=== PATIENT | male | born 1945 | race Caucasian/White ===

== ENCOUNTER 2020-09-14 08:23 | Inpatient (IN) | payer MEDICARE ==
[~2020-09-14] VITALS: Ht 170.2 cm; Wt 89.5 kg
[2020-09-14] VITALS (14 sets, daily range): BP systolic 78–110; BP diastolic 50–69
[2020-09-14] MEDS ORDERED: LISI-542 PO (08:57)
[2020-09-14] MEDS ORDERED: SOTA120T PO (08:57)
[2020-09-14] MEDS ORDERED: SIMV40TA20 PO (08:57)
[2020-09-14] MEDS ORDERED: TRUL10IN SC (08:57)
[2020-09-14] MEDS ORDERED: IPRA6SP NARES (08:57)
[2020-09-14] MEDS ORDERED: BASA100I SC (08:57)
[2020-09-14] MEDS ORDERED: XALA0.007 OP (08:57)
[2020-09-14] MEDS ORDERED: FURO40TA2 PO (08:57)
[2020-09-14] MEDS ORDERED: METF10004 PO (08:57)
[2020-09-14] MEDS ORDERED: ELIQ5TAB PO (08:57)
[2020-09-14] MEDS ORDERED: XALA0.007 OU (08:57)
[2020-09-14] MEDS ORDERED: MIDAZOLAM INJ 2MG/2ML VIAL (J2250 PER 1MG) IV STA ×2 (08:59→11:41)
[2020-09-14] MEDS ORDERED: MIDAZOLAM INJ 2MG/2ML VIAL (J2250 PER 1MG) IV ONE (09:00)
[2020-09-14] MEDS ORDERED: MIDAZOLAM INJ 2MG/2ML VIAL (J2250 PER 1MG) As Ordered ONE (09:01)
[2020-09-14 09:05] LABS: BASO # 0.1 10^3/uL (0.0-0.2); BASO % 0.9 % (0.0-1.0); EOS # 0.3 10^3/uL (0.0-0.5); EOS % 2.5 % (0.0-3.0); HEMATOCRIT 51.8 % (42.0-52.0); HEMOGLOBIN 14.6 g/dl (13.5-17.5); LYMPH # 1.5 10^3/uL (1.5-5.0); LYMPH % 14.5 % (24.0-44.0); MEAN CORPUSCULAR HEMOGLOBIN 28.3 pg (27.0-33.0); MEAN CORPUSCULAR HGB CONC 28.2 g/dl (32.0-36.5); MEAN CORPUSCULAR VOLUME 100.4 fl (80.0-96.0); MONO # 0.9 10^3/uL (0.0-0.8); MONO % 8.5 % (0.0-5.0); NEUTROPHILS # 7.4 10^3/uL (1.5-8.5); NEUTROPHILS % 72.4 % (36.0-66.0); PLATELET COUNT, AUTOMATED 251 10^3/uL (150-450); RED BLOOD COUNT 5.16 10^6/uL (4.30-6.10); WHITE BLOOD COUNT 10.2 10^3/uL (4.0-10.0)
--- NOTE | 2020-09-14 09:09 | REP ---
INDICATION: intubated. COMPARISON: No comparison chest x-ray. TECHNIQUE: Portable upright AP chest radiograph. FINDINGS: Endotracheal tube is seen in good position between the transverse aorta and the medial clavicles. And NG tube enters the left upper quadrant. A bipolar pacemaker is seen in the right heart view of the left side. Monitoring electrodes are noted. The heart is not enlarged. Interstitial and vascular markings are diffusely increased and congested question interstitial edema. No focal infiltrate is seen. No pleural effusion is noted. There is no evidence of pneumothorax or mediastinal widening. No rib or other fracture is appreciated.. IMPRESSION: Endotracheal and nasogastric tubes in good position. Diffuse interstitial edema pattern/vascular congestion. Heart size is normal. Pacemaker.. <Electronically signed by Miguel Lopez > 09/14/20 0947
[2020-09-14 09:24] LABS: AMPHETAMINES LEVEL URINE NEGATIVE (NEGATIVE); BARBITURATES URINE NEGATIVE (NEGATIVE); BENZODIAZEPINES URINE NEGATIVE (NEGATIVE); CANNABINOIDS URINE POSITIVE (NEGATIVE); COCAINE METABOLITE URINE NEGATIVE (NEGATIVE); METHADONE URINE NEGATIVE (NEGATIVE); OPIATES URINE NEGATIVE (NEGATIVE); PHENCYCLIDINE URINE NEGATIVE (NEGATIVE)
[2020-09-14 09:28] LABS: INR 1.06
[2020-09-14 09:30] LABS: ACETAMINOPHEN LEVEL < 2.0 UG/ML (10.0-30.0); ALBUMIN 3.3 GM/DL (3.2-5.2); ALT/SGPT 17 U/L (12-78); BILIRUBIN,DIRECT < 0.1 MG/DL (0.0-0.2); BILIRUBIN,TOTAL 0.2 MG/DL (0.2-1.0); BLOOD UREA NITROGEN 69 MG/DL (7-18); CARBON DIOXIDE LEVEL 40 MEQ/L (21-32); CHLORIDE LEVEL 96 MEQ/L (98-107); CK-MB VALUE MASS 1.8 NG/ML (<3.6); CPK CREATINE PHOSPHOKINASE 40 U/L (39-308); CREATININE FOR GFR 1.55 MG/DL (0.70-1.30); ETHYL ALCOHOL (ETHANOL) 0.006 % (0.000-0.010); GLUCOSE, FASTING 138 MG/DL (70-100); NT-PRO BNP 2108 PG/ML (<125); POTASSIUM SERUM 5.7 MEQ/L (3.5-5.1); SALICYLATE LEVEL < 1.7 MG/DL (5.0-30.0); SODIUM LEVEL 138 MEQ/L (136-145); TOTAL PROTEIN 8.1 GM/DL (6.4-8.2); TROPONIN I < 0.02 NG/ML (< 0.10)
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
[2020-09-14] MEDS ORDERED: CEFEPIME HCL 2 GM in D5W MINI-BAG PLUS 50 ML IV ONE (09:45)
[2020-09-14] MEDS ORDERED: SUCCINYLCHOLINE INJ 200 MG/10 ML VIAL (J0330) IV ONE (09:45)
[2020-09-14] MEDS ORDERED: NS 2,530 ML in IV 1 EA IV ONE (09:45)
[2020-09-14] MEDS ORDERED: ETOMIDATE INJ 20MG/10ML VIAL IV ONE (09:45)
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
[2020-09-14] MEDS ORDERED: METF-838 PO (09:58)
[2020-09-14] MEDS ORDERED: ALBU83IN INH (09:58)
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
[2020-09-14] MEDS ORDERED: FURO20TA2 PO (10:03)
[2020-09-14] MEDS ORDERED: PATIENT COMMENT (10:03)
[2020-09-14] MEDS: NS 1,000 ML IV SCH ×2 (10:12→20:00)
[2020-09-14 10:16] LABS: RSV AMPLIFICATION NEGATIVE (NEGATIVE)
[2020-09-14] MEDS ORDERED: propofoL 1,000 MG in IV 1 EA IV SCH (10:36)
[2020-09-14] MEDS ORDERED: MIDAZOLAM INJ 2MG/2ML VIAL (J2250 PER 1MG) IV PRN (10:45)
[2020-09-14] MEDS: PANTOPRAZOLE 40MG VIAL (C9113 PER 1) IV SCH (11:12)
[2020-09-14 11:30] LABS: ABG BASE EXCESS 1.3 (-2.0-2.0); ABG HCO3 30.9 MEQ/L (22.0-26.0); ABG O2 SATURATION 91.1 % (95.0-99.0); ABG PARTIAL PRESSURE O2 61.7 mmHg (75.0-100.0); ABG STANDARD HCO3 25.4 MEQ/L (22.0-26.0); ABG TOTAL CO2 33.2 MEQ/L (23.0-31.0)
[2020-09-14 11:32] LABS: ABG PARTIAL PRESSURE CO2 74.7 mmHg (35.0-45.0); ABG pH (ARTERIAL) 7.234 UNITS (7.350-7.450)
[2020-09-14] MEDS ORDERED: MIDAZOLAM HCL 50 MG in D5W 40 ML IV SCH (11:45)
[2020-09-14] MEDS ORDERED: REFRIGERATOR IV KEYS XX PRN (13:00)
[2020-09-14] MEDS ORDERED: MIDAZOLAM HCL 100 MG in D5W 80 ML IV SCH (13:00)
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
[2020-09-14] MEDS: HEPARIN SOD (PORCINE) 5000UNITS/ML 1ML VIAL/SYRINGE SC SCH ×2 (14:00→22:43)
[2020-09-14] MEDS ORDERED: ETOMIDATE INJ 20MG/10ML VIAL ONE (15:20)
[2020-09-14] MEDS ORDERED: SUCCINYLCHOLINE INJ 200 MG/10 ML VIAL (J0330) ONE (15:20)
[2020-09-14] MEDS: IPRATROPIUM 0.5MG/ALBUTEROL 2.5MG INH SOL UD 3ML (DUONEB) NEB SCH ×2 (15:35→19:48)
[2020-09-14 17:12] LABS: ALBUMIN 2.7 GM/DL (3.2-5.2); BLOOD UREA NITROGEN 69 MG/DL (7-18); CALCIUM LEVEL 8.5 MG/DL (8.8-10.2); CARBON DIOXIDE LEVEL 32 MEQ/L (21-32); CHLORIDE LEVEL 106 MEQ/L (98-107); CREATININE FOR GFR 1.28 MG/DL (0.70-1.30); GLOMERULAR FILTRATION RATE 58.6 (>42); GLUCOSE, FASTING 83 MG/DL (70-100); PHOSPHORUS LEVEL 2.4 MG/DL (2.5-4.9); POTASSIUM SERUM 5.9 MEQ/L (3.5-5.1); SODIUM LEVEL 140 MEQ/L (136-145)
[2020-09-14] MEDS ORDERED: METOPROLOL 5 MG/5 ML VIAL IV STA (17:47)
[2020-09-14] MEDS ORDERED: DIGOXIN INJ 0.5 MG/2 ML AMP (J1160) IV STA ×2 (18:05→18:40)
[2020-09-14 18:10] LABS: ABG BASE EXCESS 4.3 (-2.0-2.0); ABG HCO3 32.1 MEQ/L (22.0-26.0); ABG O2 SATURATION 94.3 % (95.0-99.0); ABG PARTIAL PRESSURE O2 68.3 mmHg (75.0-100.0); ABG STANDARD HCO3 28.2 MEQ/L (22.0-26.0); ABG TOTAL CO2 34.1 MEQ/L (23.0-31.0); ABG pH (ARTERIAL) 7.327 UNITS (7.350-7.450)
[2020-09-14 18:12] LABS: ABG PARTIAL PRESSURE CO2 62.8 mmHg (35.0-45.0)
[2020-09-14 18:36] LABS: MAGNESIUM LEVEL 1.5 MG/DL (1.8-2.4)
[2020-09-14] MEDS ORDERED: MAG SULF 1GM/100ML (MAG RUN) 1 GM in IV 1 EA IV ONE ×2 (18:45→19:45)
--- NOTE | 2020-09-14 19:25 | CCN ---
CRITICAL CARE NOTE DATE: 09/14/2020 Critical Care time was one hour this excludes all procedures. I was called to the patient's bedside urgently for AFib with RVR. The patient has a history of being on Sotalol and atrial fibrillation according to the chart. At bedside, I was slowly pushing IV metoprolol and after 4 mg, blood pressure went down to 80 systolic with a mean arterial pressure in the low 60s. Therefore, I stopped after the 4 mg. Heart rate remained 138. EKG did show ST abnormalities in the inferior leads. My differential was acute ND versus strain from AFib with RVR. I therein loaded the patient with digoxin a total of 0.25. Stat echocardiogram was also ordered, initially showing not much wall motion globally; however, after heart rate got down to 120s, there was a much better squeeze, much better cardiac output, and blood pressure improved. I did order a cardiology consult for assistance with management of medication, especially given his Sotalol use. He does have a pacer. The pacer was initially firing when he presented and his heart rate obviously was lower. It appears to be functioning well. I added a troponin on to his most recent labs as his presentation was quite questionable. He presented with hypercarbic respiratory failure and now has AFib with RVR in the face of chronic AFib. I believe most likely his recent cardiovascular instability was most likely secondary to his high heart rate. Appreciate cardiology's input. Will await formal read of the echocardiogram by the stress test technician. In the meantime, will add insulin coverage. The patient remains arousable on mechanical ventilation and can answer questions, neurologically intact. RITA
[2020-09-14 19:46] LABS: TROPONIN I < 0.02 NG/ML (< 0.10)
[2020-09-14] MEDS: CHLORHEXIDINE GLUCONATE 0.12 % 15ML UDC (PERIDEX ORAL RINSE) MT SCH (21:02)
[2020-09-14] MEDS ORDERED: GLUCOSE 4GM CHEW TABLET PO PRN (22:45)
[2020-09-14] MEDS ORDERED: GLUCAGON INJ 1MG VIAL SC PRN (22:45)
[2020-09-15] VITALS (18 sets, daily range): BP systolic 81–136; BP diastolic 48–64
[2020-09-15] MEDS ORDERED: DIGOXIN INJ 0.5 MG/2 ML AMP (J1160) IV ONE ×3 (00:30→12:00)
[2020-09-15] MEDS ORDERED: MIDAZOLAM INJ 2MG/2ML VIAL (J2250 PER 1MG) As Ordered ONE (00:41)
[2020-09-15] MEDS ORDERED: MORPHINE 2 MG/ML 1ML VIAL (J2270) As Ordered ONE (00:45)
[2020-09-15] MEDS: MIDAZOLAM INJ 2MG/2ML VIAL (J2250 PER 1MG) IV PRN ×2 (00:47→03:07)
[2020-09-15] MEDS: MORPHINE 2 MG/ML 1ML VIAL (J2270) IV PRN ×2 (00:49→03:07)
[2020-09-15] MEDS: DEXTROSE 50% 50 ML SYRINGE IV PRN ×3 (03:14→12:10)
[2020-09-15] MEDS: NS 1,000 ML IV SCH (04:00)
[2020-09-15] MEDS: HumaLOG INSULIN (NovoLOG) PER UNIT SC SCH ×3 (06:00→12:00)
[2020-09-15 06:16] LABS: BASO % 0.4 % (0.0-1.0); EOS % 0.3 % (0.0-3.0); LYMPH # 1.2 10^3/uL (1.5-5.0); LYMPH % 16.6 % (24.0-44.0); MEAN CORPUSCULAR HEMOGLOBIN 28.6 pg (27.0-33.0); MEAN CORPUSCULAR HGB CONC 29.7 g/dl (32.0-36.5); MEAN CORPUSCULAR VOLUME 96.1 fl (80.0-96.0); MONO # 0.7 10^3/uL (0.0-0.8); MONO % 9.2 % (0.0-5.0); NEUTROPHILS # 5.4 10^3/uL (1.5-8.5); NEUTROPHILS % 72.7 % (36.0-66.0); PLATELET COUNT, AUTOMATED 175 10^3/uL (150-450); RED BLOOD COUNT 4.06 10^6/uL (4.30-6.10); WHITE BLOOD COUNT 7.4 10^3/uL (4.0-10.0)
[2020-09-15 06:17] LABS: HEMOGLOBIN 11.6 g/dl (13.5-17.5)
[2020-09-15] MEDS: HEPARIN SOD (PORCINE) 5000UNITS/ML 1ML VIAL/SYRINGE SC SCH ×3 (06:20→22:00)
[2020-09-15 06:25] LABS: ALBUMIN 2.3 GM/DL (3.2-5.2); BILIRUBIN,TOTAL 0.3 MG/DL (0.2-1.0); CALCIUM LEVEL 7.6 MG/DL (8.8-10.2); CREATININE FOR GFR 1.33 MG/DL (0.70-1.30); GLOMERULAR FILTRATION RATE 56.1 (>42); PHOSPHORUS LEVEL 1.8 MG/DL (2.5-4.9); POTASSIUM SERUM 5.4 MEQ/L (3.5-5.1); TOTAL PROTEIN 5.5 GM/DL (6.4-8.2)
[2020-09-15 06:30] LABS: ABG BASE EXCESS 5.8 (-2.0-2.0); ABG O2 SATURATION 94.7 % (95.0-99.0); ABG PARTIAL PRESSURE O2 69.7 mmHg (75.0-100.0); ABG STANDARD HCO3 29.6 MEQ/L (22.0-26.0); ABG TOTAL CO2 33.7 MEQ/L (23.0-31.0); ABG pH (ARTERIAL) 7.391 UNITS (7.350-7.450)
--- NOTE | 2020-09-15 07:01 | ECGEPIP ---
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
[2020-09-15] MEDS: IPRATROPIUM 0.5MG/ALBUTEROL 2.5MG INH SOL UD 3ML (DUONEB) NEB SCH ×4 (07:55→20:00)
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
[2020-09-15] MEDS: NICOTINE 14 MG/24 HR TRANSDERMAL TD SCH (09:00)
[2020-09-15] MEDS: CHLORHEXIDINE GLUCONATE 0.12 % 15ML UDC (PERIDEX ORAL RINSE) MT SCH (09:49)
[2020-09-15] MEDS: PANTOPRAZOLE 40MG VIAL (C9113 PER 1) IV SCH (09:49)
[2020-09-15 12:59] LABS: MAGNESIUM LEVEL 2.1 MG/DL (1.8-2.4)
--- NOTE | 2020-09-15 13:33 | CCN ---
CRITICAL CARE NOTE DATE: 09/15/2020 Critical care time was 51 minutes. This excludes all procedures. SUBJECTIVE: Atrial fibrillation with rapid ventricular response (AVR) overnight, now in sinus rhythm occasionally paced. Patient intubated and sedated on mechanical ventilation. He does state that he is short of breath. Chest x-ray shows some vascular congestion. Urine output is more than adequate at 125 mL over the past two hours. He is following commands on mechanical ventilation. I have placed him on a spontaneous breathing trial at 5:05 this a.m. He remains on DuoNebs, Heparin, Protonix, midazolam, Lisinopril, Morphine, Digoxin. No exact indication of the reason for his acute presentation but he did present with acute respiratory failure with hypercarbia. He continues to have hypercarbia but he is compensated well on mechanical ventilation. PHYSICAL EXAM: Vital signs: Temperature 97.2, pulse is 68, respiratory rate is 20, blood pressure is 106/53 with a mean arterial pressure of 70, oxygen saturation 95% on 0.50 FiO2. HEENT: Sclerae clear. Nonicteric. Pupils equal and reactive to light. Mucous membranes are moist without lesions. Oropharynx without erythema or exudate. Neck is supple. No tracheal deviation or mass. Lymph: No cervical, supraclavicular, or axillary adenopathy. Cardiac: Regular S1, S2 without audible murmur, rub, or gallop. PMI is displaced laterally. Pulmonary: Decreased breath bilaterally, dull to percussion at bases. Abdomen: Soft, nontender, nondistended. No hepatosplenomegaly. No masses or hernia. Extremities: No cyanosis, clubbing, or edema. Skin: No rash, jaundice or bruising. Musculoskeletal: Normal muscle tone without any evidence of fracture or effusion. Neurologic: Able to move all extremities and answer yes or no questions. Laboratory evaluation shows a white blood cell count of 7.4, hemoglobin of 11.6, hematocrit of 39.0, platelet count of 175 with a sodium of 141, potassium 5.4, chloride 106, bicarb 32, BUN 59, creatinine 1.33 with some hypoglycemia today with a morning glucose of 67, improved and now is down to the 30s. Calcium is 7.6 CK is 26, phosphorus is 1.8, total protein is 5.5, albumin 2.3. Chest x-ray shows that the endotracheal tube is high and there is vascular congestion bilaterally. Blood cultures are negative times two. ASSESSMENT: 1. Acute respiratory failure with profound hypercarbic, hypoxic respiratory failure, likely advanced COPD. The best guess is that this was possibly a COPD exacerbation with CO2 retention. However, the patient did have atrial fibrillation with RVR which may or may not be related. Normally on sotalol. Echocardiogram with higher heart rates did not show good squeeze. When his rate came down squeeze was much better. Likely a cardiopulmonary issue that caused him to be unresponsive. It does not appear that he [id number] any evidence of acute infection at this point in time. He does have acute kidney injury but no indication for dialysis at this point in time. He does have some vascular congestion, may require diuretic therapy. We will attempt extubation if the patient passes spontaneous breathing trial. 2. Atrial fibrillation with RVR, being loaded with digoxin, doing well with this. It is unclear whether or not he had any arrhythmias preceding his respiratory arrest. 3. He has DVT prophylaxis with Heparin and GI prophylaxis with Protonix.
--- NOTE | 2020-09-15 13:35 | ECHO ---
DATE OF PROCEDURE: 09/14/2020 Age: 75 Gender: Male Height: Weight: REFERRING PHYSICIAN: Tamir Cole D.O. PATIENT LOCATION: Room 3219. REASON FOR STUDY: Atrial fibrillation. 2D MEASUREMENTS: IVS 0.94 cm LV 3.8 cm LVPW 1.1 cm LA 3.1 cm Aorta 2.7 cm IVC 1.7 cm DOPPLER MEASUREMENT Peak velocity across the aortic valve 1.4 msec Peak velocity across the LVOT 0.6 msec 2D COMMENTS: * Technically limited study due to poor acoustic window. * The left ventricular size is normal, as well as the left ventricular wall thickness. The estimated left ventricular systolic ejection fraction is 50% to 55%, but may be higher. * Subjectively the left atrium appeared to be mildly enlarged. The right heart chambers in limited views also appeared to be mildly enlarged. * The atrial septum appeared to be normal without evidence of defect or shunt. * Normal aortic root. * A small pericardial effusion was noted. No evidence of cardiac tamponade. * Mildly calcified aortic valve with normal leaflet excursion. * Mildly calcified mitral annulus with normal anterior mitral valve leaflet motion. * Normal tricuspid valve. The pulmonic valve and proximal pulmonary artery branches were not well visualized. * The inferior vena cava appeared to be normal in size. DOPPLER: No significant valvular abnormalities detected. Assessment of the left ventricular diastolic function was limited in view of the underlying atrial fibrillation. IMPRESSION: * Technically limited study due to poor acoustic window. On the subcostal views were thickened. * Low normal global left ventricular systolic function. * A small pericardial effusion was noted, no evidence of cardiac tamponade. * The right heart chambers appeared to be mildly enlarged in limited views. * Pacemaker artifacts noted in the right heart chambers. MTDD
[2020-09-15] MEDS: TIOTROPIUM INHALER/CAPSULE (SPIRIVA) INH SCH (14:25)
[2020-09-15] MEDS: SYMBICORT 160/4.5MCG INHALER 6GM INH SCH ×2 (14:25→20:00)
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
--- NOTE | 2020-09-15 18:36 | ECGEPIP ---
[facility] Test Date: 2020-09-14 Pat Name: MASHA CANO Department: Room: [place] [address] Gender: Male [employer] Officer: JESI : 1945 Requested By: MYLES House Order Number: [id number] Reading MD: Rainer Elizondo Measurements Intervals [place] Rate: 137 P: LA: 0 QRS: 102 QRSD: 97 T: 81 QT: 277 QTc: 419 Interpretive Statements ATRIAL FLUTTER/TACHYCARDIA WITH RAPID VENTRICULAR RESPONSE MARKED RIGHT AXIS DEVIATION LOW QRS VOLTAGE IN EXTREMITY LEADS PATTERN CONSISTENT WITH PULMONARY DISEASE MARKED ST ELEVATION, CONSIDER INFERIOR INJURY ACUTE VT Electronically Signed on 09-15-2020 18:35:54 EST by Rainer Elizondo
[2020-09-16] VITALS (11 sets, daily range): BP systolic 103–150; BP diastolic 53–88; O2SAT 96
[2020-09-16 04:42] LABS: BASO # 0.1 10^3/uL (0.0-0.2); BASO % 0.9 % (0.0-1.0); EOS # 0.3 10^3/uL (0.0-0.5); EOS % 3.7 % (0.0-3.0); HEMATOCRIT 41.6 % (42.0-52.0); HEMOGLOBIN 12.4 g/dl (13.5-17.5); LYMPH # 1.7 10^3/uL (1.5-5.0); LYMPH % 22.8 % (24.0-44.0); MEAN CORPUSCULAR HGB CONC 29.8 g/dl (32.0-36.5); MEAN CORPUSCULAR VOLUME 97.4 fl (80.0-96.0); MONO # 0.8 10^3/uL (0.0-0.8); MONO % 10.4 % (0.0-5.0); NEUTROPHILS # 4.7 10^3/uL (1.5-8.5); NEUTROPHILS % 61.9 % (36.0-66.0); PLATELET COUNT, AUTOMATED 181 10^3/uL (150-450); RED BLOOD COUNT 4.27 10^6/uL (4.30-6.10); WHITE BLOOD COUNT 7.5 10^3/uL (4.0-10.0)
[2020-09-16 05:05] LABS: ALBUMIN 2.6 GM/DL (3.2-5.2); ALT/SGPT 13 U/L (12-78); BILIRUBIN,TOTAL 0.3 MG/DL (0.2-1.0); BLOOD UREA NITROGEN 38 MG/DL (7-18); CALCIUM LEVEL 7.9 MG/DL (8.8-10.2); CARBON DIOXIDE LEVEL 33 MEQ/L (21-32); CHLORIDE LEVEL 105 MEQ/L (98-107); CHOLESTEROL LEVEL 123 MG/DL (< 200); CPK CREATINE PHOSPHOKINASE 40 U/L (39-308); CREATININE FOR GFR 1.14 MG/DL (0.70-1.30); GLOMERULAR FILTRATION RATE > 60.0 (>42); GLUCOSE, FASTING 116 MG/DL (70-100); LDH LACTATE DEHYDROGENASE 168 U/L (87-241); PHOSPHORUS LEVEL 1.8 MG/DL (2.5-4.9); POTASSIUM SERUM 4.9 MEQ/L (3.5-5.1); SODIUM LEVEL 142 MEQ/L (136-145); TRIGLYCERIDES LEVEL 160 MG/DL (<150)
[2020-09-16 06:18] LABS: ABG BASE EXCESS 5.7 (-2.0-2.0); ABG HCO3 35.1 MEQ/L (22.0-26.0); ABG PARTIAL PRESSURE O2 93.5 mmHg (75.0-100.0); ABG STANDARD HCO3 29.6 MEQ/L (22.0-26.0); ABG TOTAL CO2 37.5 MEQ/L (23.0-31.0); ABG pH (ARTERIAL) 7.279 UNITS (7.350-7.450)
[2020-09-16 06:23] LABS: ABG PARTIAL PRESSURE CO2 76.6 mmHg (35.0-45.0)
[2020-09-16] MEDS: HEPARIN SOD (PORCINE) 5000UNITS/ML 1ML VIAL/SYRINGE SC SCH ×3 (07:03→22:45)
[2020-09-16] MEDS ORDERED: LEVALBUTEROL 1.25 MG/0.5 ML CONCENTRATE NEB NEB PRN (08:00)
[2020-09-16] MEDS: IPRATROPIUM 0.5MG/ALBUTEROL 2.5MG INH SOL UD 3ML (DUONEB) NEB SCH ×4 (08:00→19:55)
--- NOTE | 2020-09-16 08:04 | REP ---
INDICATION: ett COMPARISON: 09/15/2020 TECHNIQUE: Portable AP view of the chest FINDINGS: The mediastinum and cardiac silhouette are stable and within normal limits for portable technique. Two lead pacemaker again noted and stable. The lung salvador demonstrate diffuse chronic interstitial changes. Subtle scattered atelectasis primarily in the left mid lung zone and right base are suspected. No effusion. No pneumothorax. IMPRESSION: 1. Endotracheal tube has been removed. 2. Stable chronic changes with superimposed elements of atelectasis primarily identified in the left mid lung zone and right base. <Electronically signed by Ramos Deleon > 09/16/20 [id number]
[2020-09-16] MEDS: SYMBICORT 160/4.5MCG INHALER 6GM INH SCH ×2 (08:16→19:55)
[2020-09-16] MEDS: TIOTROPIUM INHALER/CAPSULE (SPIRIVA) INH SCH (08:16)
[2020-09-16] MEDS: PANTOPRAZOLE 40MG VIAL (C9113 PER 1) IV SCH (08:20)
[2020-09-16] MEDS: DIGOXIN INJ 0.5 MG/2 ML AMP (J1160) IV SCH (08:20)
[2020-09-16] MEDS: methylPREDNISolone 125MG 2ML VIAL IV SCH ×2 (08:20→17:53)
[2020-09-16] MEDS: NICOTINE 14 MG/24 HR TRANSDERMAL TD SCH (09:00)
[2020-09-16] MEDS ORDERED: FUROSEMIDE 20MG/2ML VIAL (J1940) IV SCH (09:00)
[2020-09-16] MEDS ORDERED: HumaLOG INSULIN (NovoLOG) PER UNIT SC SCH (12:00)
[2020-09-16] MEDS: NEUTRA-PHOS 1.5 GM PACKET PO SCH ×2 (12:23→20:41)
[2020-09-16 12:25] LABS: ABG HCO3 34.6 MEQ/L (22.0-26.0); ABG STANDARD HCO3 31.7 MEQ/L (22.0-26.0); ABG TOTAL CO2 36.3 MEQ/L (23.0-31.0); ABG pH (ARTERIAL) 7.401 UNITS (7.350-7.450)
[2020-09-16] MEDS ORDERED: DEXTROSE 50% 50 ML SYRINGE IV PRN (12:30)
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
[2020-09-16 13:09] LABS: HDL CHOLESTEROL 37 MG/DL (>40)
[2020-09-16 13:32] LABS: HEMOGLOBIN A1c 7.6 %
[2020-09-16 13:38] LABS: CHOLESTEROL LEVEL 123 MG/DL (<200); CHOLESTEROL RISK RATIO 3.324 (<5); NON-HDL-C 86 MG/DL
[2020-09-16] MEDS: HumaLOG INSULIN (NovoLOG) PER UNIT SC SCH ×3 (13:39→20:40)
--- NOTE | 2020-09-16 17:09 | CCN ---
CRITICAL CARE NOTE DATE: 09/16/2020 BiPAP MANAGEMENT Overnight patient had more CO2 retention. Arterial blood gas this morning shows the pH down to 7.23, pCO2 up to 77. I placed the patient on bilevel noninvasive therapy this morning. Currently 12/05. Obtaining tidal volumes 400-500. Able to talk. Denies any increase in shortness of breath, chest discomfort, or any new symptoms. He is actually requesting to speak on the phone. On chest x-ray this morning, as outlined below, shows some increased vascular congestion. PHYSICAL EXAMINATION: Temperature is 97.6, pulse is 91, respiratory rate is 28, blood pressure is 129/63 with an oxygen saturation 93% on 5 liters nasal cannula. Patient is net positive 1.1 liters in the past 24 hours. GENERAL: Awake, alert, oriented, on bilevel noninvasive therapy. Not tachypneic at this point in time. HEENT: Sclerae are clear and anicteric. Pupils equal and reactive to light. Mucous membranes are moist without lesions. Tongue is midline. Neck is supple. No tracheal deviation or mass. LYMPHATIC: No cervical, supraclavicular, or axillary adenopathy. CARDIAC: Regular S1, S2 without audible murmur, rub, or gallop. There is elevated jugular venous pressure (JVP). There is minimal pitting edema to the level just above the ankle bilaterally and symmetric. There is no calf tenderness. PULMONARY: Clear to auscultation without rales, rhonchi, or wheezes. There is prolongation of the expiratory phase and somewhat decreased breath sounds but no adventitious breath sounds. There is no dullness to percussion. ABDOMEN: Soft, nontender, nondistended. No hepatosplenomegaly. No masses or hernia. EXTREMITIES: No cyanosis or clubbing. SKIN: No rashes, jaundice, or bruising. Varicosities of the lower extremities are present. MUSCULOSKELETAL: Fairly normal muscle tone. No evidence of recent fracture or trauma. No joint effusions. NEUROLOGIC: No unilateral weakness. No tremor. No evidence of seizure activity. Patient is able to move all extremities. Laboratory evaluation shows a sodium 142, potassium 4.9, chloride 105, bicarbonate 33, BUN 38, creatinine of 1.14 with a pH of 7.23, pCO2 77, PaO2 of 93 yesterday. Arterial blood gas shows a pH of 7.39, pCO2 of 54. PaO2 of 40. Phosphorus is low at 1.8. 1. Acute hypercarbic respiratory failure, likely secondary to chronic obstructive pulmonary disease. Also has some pulmonary edema, which can decrease compliance in the lung. Patient also has evidence of a slightly higher oxygen than on prior blood gas. The higher oxygen supply may also be contributing to CO2 retention. He is placed in BiPAP with limiting oxygen saturation to 88%-92%. Likely chronic obstructive pulmonary disease (COPD) exacerbation. Agree with adding Solu-Medrol but also agree with Lasix, as the patient is net positive and has evidence of congestion. 2. Vascular congestion on chest x-ray, consistent with heart failure. Echocardiogram was reviewed, which was technically difficult. Shows low-normal global systolic function. There was enlargement of the left atrium, suggesting at least diastolic dysfunction. It also appeared that the right chambers were also mildly enlarged. Not surprising that the patient would likely have a degree of pulmonary hypertension. 3. Deep venous thrombosis (DVT) prophylaxis. Patient is on heparin. 4. Gastrointestinal (GI) prophylaxis. Patient is on Protonix, which can be stopped once he is off of Solu-Medrol. 5. Hypophosphatemia. Will replace oral. Patient's prognosis remains guarded. He is at risk for reintubation.
[2020-09-16] MEDS: LATANOPROST 0.005% OPHTH SOLN 2.5 ML OU SCH (20:41)
[2020-09-16] MEDS ORDERED: LEVEMIR (INSULIN DETEMIR) 1 UNITS/0.01ML SC SCH (21:00)
[2020-09-17] VITALS (11 sets, daily range): BP systolic 130–155; BP diastolic 43–104; O2SAT 92–96
[2020-09-17] MEDS: methylPREDNISolone 125MG 2ML VIAL IV SCH ×3 (01:19→18:04)
[2020-09-17 05:00] LABS: HEMATOCRIT 41.3 % (42.0-52.0); HEMOGLOBIN 12.6 g/dl (13.5-17.5); LYMPH # 0.4 10^3/uL (1.5-5.0); LYMPH % 6.9 % (24.0-44.0); MEAN CORPUSCULAR HEMOGLOBIN 29.2 pg (27.0-33.0); MEAN CORPUSCULAR HGB CONC 30.5 g/dl (32.0-36.5); MEAN CORPUSCULAR VOLUME 95.6 fl (80.0-96.0); MONO # 0.2 10^3/uL (0.0-0.8); NEUTROPHILS # 5.6 10^3/uL (1.5-8.5); NEUTROPHILS % 89.6 % (36.0-66.0); PLATELET COUNT, AUTOMATED 171 10^3/uL (150-450); RED BLOOD COUNT 4.32 10^6/uL (4.30-6.10); WHITE BLOOD COUNT 6.3 10^3/uL (4.0-10.0)
[2020-09-17 05:36] LABS: ALBUMIN 2.5 GM/DL (3.2-5.2); BILIRUBIN,TOTAL 0.4 MG/DL (0.2-1.0); CALCIUM LEVEL 8.3 MG/DL (8.8-10.2); CREATININE FOR GFR 1.42 MG/DL (0.70-1.30); PHOSPHORUS LEVEL 1.4 MG/DL (2.5-4.9); POTASSIUM SERUM 5.2 MEQ/L (3.5-5.1); TOTAL PROTEIN 7.1 GM/DL (6.4-8.2)
[2020-09-17] MEDS: HEPARIN SOD (PORCINE) 5000UNITS/ML 1ML VIAL/SYRINGE SC SCH ×3 (06:38→21:34)
[2020-09-17] MEDS: TIOTROPIUM INHALER/CAPSULE (SPIRIVA) INH SCH (07:06)
[2020-09-17] MEDS: IPRATROPIUM 0.5MG/ALBUTEROL 2.5MG INH SOL UD 3ML (DUONEB) NEB SCH ×4 (07:08→20:00)
[2020-09-17] MEDS: SYMBICORT 160/4.5MCG INHALER 6GM INH SCH ×2 (07:08→20:18)
--- NOTE | 2020-09-17 08:08 | REP ---
INDICATION: ett COMPARISON: 09/16/2020, 09/15/2020 TECHNIQUE: Portable AP view of the chest FINDINGS: The mediastinum and cardiac silhouette are stable and within normal limits for portable technique. Dual lead pacemaker again noted and stable. No endotracheal tube or nasogastric tube identified. Mild patchy bibasilar airspace disease appears somewhat increased compared to 09/16/2020 IMPRESSION: 1. No endotracheal tube or nasogastric tube identified. 2. Subtle patchy bibasilar airspace disease (left greater than right) appears slightly increased. <Electronically signed by Ramos Deleon > 09/17/20 [id number]
[2020-09-17] MEDS: NEUTRA-PHOS 1.5 GM PACKET PO SCH (08:14)
[2020-09-17] MEDS: HumaLOG INSULIN (NovoLOG) PER UNIT SC SCH ×4 (08:14→21:00)
[2020-09-17] MEDS: DIGOXIN INJ 0.5 MG/2 ML AMP (J1160) IV SCH (08:15)
[2020-09-17] MEDS: SIMVASTATIN 40 MG TAB PO SCH (08:16)
[2020-09-17] MEDS: NICOTINE 14 MG/24 HR TRANSDERMAL TD SCH (08:16)
[2020-09-17] MEDS: PANTOPRAZOLE 40MG VIAL (C9113 PER 1) IV SCH (08:16)
[2020-09-17] MEDS: LEVEMIR (INSULIN DETEMIR) 1 UNITS/0.01ML SC SCH (09:17)
[2020-09-17] MEDS ORDERED: POTASSIUM PHOSPHATE INJ 15 MMOL in D5W 250 ML IV ONE (10:00)
--- NOTE | 2020-09-17 10:20 | CCN ---
CRITICAL CARE NOTE DATE: 09/17/2020 This is BIPAP management. SUBJECTIVE: The patient is awake, alert, sitting at the bedside this morning, much more conversant. Arterial blood gas shows a pH of 7.40, pco2 of 57, pao2 of 73, compensated hypercarbic respiratory failure. He states his breathing is better. No fever or chills. He continues to have lower extremity edema. He has been off BIPAP since breakfast trial off. OBJECTIVE: PHYSICAL EXAMINATION: VITAL SIGNS: Temperature is 97.7, pulse is 69, respiratory rate is 16, blood pressure is 153/69, oxygen saturation is 92% on 3 liters nasal cannula. GENERAL APPEARANCE: Awake, alert and oriented. Affect and mood are appropriate and nutrition and hygiene are good. HEENT: Oral: nasal mucosa pink and moist without lesions. Oropharynx is without erythema or exudate. NECK: Supple. No tracheal deviation or mass. LYMPH: No cervical, supraclavicular or axillary adenopathy. CARDIAC: Regular S1, S2 without audibile murmurs, rubs or gallops. There is systemic edema with chronic venous stasis. PULMONARY: Clear to auscultation without rales, rhonchi or wheezes. Decreased overall with some prolongation in the expiratory phase. No accessory muscle use. ABDOMEN: Soft, nontender, nondistended, no hepatosplenomegaly or masses. EXTREMITIES: Chronic venous stasis changes as mentioned above with bilateral lower extremity edema. IMAGING: Chest x-ray shows less congestion. LABORATORY STUDIES: Arterial blood gas: As mentioned above. White count is 6.3, hemoglobin 12.6, hematocrit 41.3 with a platelet count of 171. Sodium is 138, potassium is 5.2, chloride 103, bicarbonate of 34, BUN of 41, creatinine of 1.42, glucose of 303, phosphorous is 1.4, albumin is 2.5. IMPRESSION AND PLAN: 1. Respiratory failure requiring bilevel noninvasive therapy yesterday. We will attempt to have a trial off today. Likely because of COPD exacerbation, possible confounded by congestive heart failure. He is on Solu-Medrol now. We can taper this after tomorrow, as far as his congestive heart failure. 2. Would monitor kidney function with diuresis. 3. He may have some component of pulmonary hypertension given the apparent severity of his COPD. 4. Mild hyperkalemia. I have discontinued Neutra-Phos until the patient's potassium has improved. MTDD
[2020-09-17 11:44] LABS: ABG BASE EXCESS 7.2 (-2.0-2.0); ABG HCO3 33.9 MEQ/L (22.0-26.0); ABG O2 SATURATION 92.1 % (95.0-99.0); ABG PARTIAL PRESSURE CO2 57.9 mmHg (35.0-45.0); ABG STANDARD HCO3 30.9 MEQ/L (22.0-26.0); ABG TOTAL CO2 35.7 MEQ/L (23.0-31.0); ABG pH (ARTERIAL) 7.386 UNITS (7.350-7.450)
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
[2020-09-17] MEDS ORDERED: LEVEMIR (INSULIN DETEMIR) 1 UNITS/0.01ML SC SCH (21:00)
[2020-09-17] MEDS: LATANOPROST 0.005% OPHTH SOLN 2.5 ML OU SCH (21:33)
[2020-09-18] VITALS: BP 122/74
[2020-09-18] MEDS: methylPREDNISolone 125MG 2ML VIAL IV SCH ×2 (02:40→12:07)
[2020-09-18 04:00] VITALS: BP 132/78
[2020-09-18 04:00] LABS: BASO % 0.1 % (0.0-1.0); HEMATOCRIT 39.4 % (42.0-52.0); HEMOGLOBIN 11.7 g/dl (13.5-17.5); LYMPH # 0.5 10^3/uL (1.5-5.0); LYMPH % 4.8 % (24.0-44.0); MEAN CORPUSCULAR HEMOGLOBIN 28.3 pg (27.0-33.0); MEAN CORPUSCULAR HGB CONC 29.7 g/dl (32.0-36.5); MEAN CORPUSCULAR VOLUME 95.2 fl (80.0-96.0); MONO # 0.4 10^3/uL (0.0-0.8); MONO % 4.4 % (0.0-5.0); PLATELET COUNT, AUTOMATED 185 10^3/uL (150-450); RED BLOOD COUNT 4.14 10^6/uL (4.30-6.10)
[2020-09-18 04:29] LABS: ALBUMIN 2.7 GM/DL (3.2-5.2); BILIRUBIN,TOTAL 0.2 MG/DL (0.2-1.0); CALCIUM LEVEL 7.7 MG/DL (8.8-10.2); CREATININE FOR GFR 1.32 MG/DL (0.70-1.30); GLOMERULAR FILTRATION RATE 56.6 (>42); MAGNESIUM LEVEL 1.9 MG/DL (1.8-2.4); PHOSPHORUS LEVEL 2.1 MG/DL (2.5-4.9); POTASSIUM SERUM 5.1 MEQ/L (3.5-5.1); TOTAL PROTEIN 6.4 GM/DL (6.4-8.2)
[2020-09-18] MEDS: HEPARIN SOD (PORCINE) 5000UNITS/ML 1ML VIAL/SYRINGE SC SCH ×3 (05:56→21:34)
[2020-09-18 08:00] VITALS: BP 138/72
[2020-09-18] MEDS: TIOTROPIUM INHALER/CAPSULE (SPIRIVA) INH SCH (08:00)
[2020-09-18] MEDS: IPRATROPIUM 0.5MG/ALBUTEROL 2.5MG INH SOL UD 3ML (DUONEB) NEB SCH ×4 (08:00→19:19)
[2020-09-18] MEDS ORDERED: LevoFLOXacin IV 500 MG in IV 1 EA IV ONE (08:00)
[2020-09-18] MEDS: SYMBICORT 160/4.5MCG INHALER 6GM INH SCH ×2 (08:04→19:19)
[2020-09-18] MEDS: NICOTINE 14 MG/24 HR TRANSDERMAL TD SCH (09:00)
[2020-09-18] MEDS: PANTOPRAZOLE 40MG VIAL (C9113 PER 1) IV SCH (09:43)
[2020-09-18] MEDS: SIMVASTATIN 40 MG TAB PO SCH (09:44)
[2020-09-18] MEDS: DIGOXIN 0.125 MG TAB PO SCH (09:44)
[2020-09-18] MEDS: FUROSEMIDE 20MG/2ML VIAL (J1940) IV SCH (09:44)
[2020-09-18] MEDS: LEVEMIR (INSULIN DETEMIR) 1 UNITS/0.01ML SC SCH (09:45)
[2020-09-18] MEDS: HumaLOG INSULIN (NovoLOG) PER UNIT SC SCH ×4 (09:45→21:34)
[2020-09-18] MEDS ORDERED: K-PHOS NEUTRAL 250MG TABLET (SOD.PHOSPHATE/POT.PHOSPHATE) PO ONE (11:45)
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
[2020-09-18 12:00] VITALS: BP 128/76
--- NOTE | 2020-09-18 13:08 | IPN ---
PULMONARY PROGRESS NOTE DATE: 09/18/2020 SUBJECTIVE: Mr. Becker is sitting at bedside today. He is ambulating. He states he feels that his respiratory status has improved from the past few days. No cough, fever or chills. He states he was coughing initially, however he is having a difficult time producing enough for a sample for sputum culture. He denies chest discomfort. He is not on inhaled therapy at home. He is not followed by functional analyst. He states he just moved to the area. PHYSICAL EXAMINATION: VITAL SIGNS: Temperature is 97.4, pulse is 91, respiratory rate is 19, blood pressure is 138/72 with a mean arterial pressure of 94, oxygen saturation is 94% on 4 liters I's and O's: 1740 in, 1440 out. Balance negative positive of 290. Current inhaled therapy: He is on DuoNeb, Spiriva, Symbicort. He is also on Solu-Medrol 60 IV q. 12 and Lasix. GENERAL: Awake, alert and oriented. Affect and mood are appropriate. Nutrition and hygiene are good. HEENT: Oral and nasal mucosa pink and moist without lesions. Oropharynx without erythema or exudate. NECK: Supple and without tracheal deviation. There is some elevation of JVP. LYMPH: No cervical, supraclavicular, or axillary adenopathy. CARDIAC: Regular S1 and S2 without audible murmur, rub or gallop. Elevated JVP as mentioned above. Some pitting edema bilaterally but actually less tense edema than yesterday. PULMONARY: Decreased breath sounds throughout without rhonchi or wheeze. Minimal prolongation of the expiratory phase. ABDOMEN: Soft, nontender and nondistended. No hepatosplenomegaly. No masses or hernia. EXTREMITIES: No cyanosis or clubbing, however there is edema. He does have compression stockings in place. LABORATORY EVALUATION: White blood cell count of 10.0, hemoglobin 11.7, hematocrit of 39.4, and a platelet count of 185,000. Chemistries showed a sodium of 139, potassium 5.1, chloride 102, bicarbonate of 32, BUN 45, creatinine 1.32. Fasting glucose of 269. Calcium is 7.7. Phosphorus is 2.1. BNP is 5856. Arterial blood gas from yesterday shows a pH of 7.39, pCO2 of 58, and pO2 of 63. Blood cultures x2 have shown no growth. No new imaging today. IMPRESSION: Acute on chronic hypoxic hypercarbic respiratory failure. Continues to require oxygen. Currently being treated for COPD exacerbation but may also have a component of heart failure. Agree with the current management of additional Lasix. Continue inhaled therapy as prescribed. Will continue to monitor for signs and infection.
[2020-09-18 16:00] VITALS: BP 126/72
[2020-09-18 20:00] VITALS: BP 150/74
[2020-09-18] MEDS ORDERED: LEVEMIR (INSULIN DETEMIR) 1 UNITS/0.01ML SC SCH (21:00)
[2020-09-18] MEDS: LATANOPROST 0.005% OPHTH SOLN 2.5 ML OU SCH (21:34)
[2020-09-19] VITALS: BP 129/67
[2020-09-19] MEDS: methylPREDNISolone 125MG 2ML VIAL IV SCH (00:41)
[2020-09-19 04:00] VITALS: BP 166/75
[2020-09-19 04:45] LABS: BASO % 0.1 % (0.0-1.0); HEMATOCRIT 42.4 % (42.0-52.0); HEMOGLOBIN 12.7 g/dl (13.5-17.5); LYMPH # 0.4 10^3/uL (1.5-5.0); LYMPH % 4.5 % (24.0-44.0); MEAN CORPUSCULAR HEMOGLOBIN 28.9 pg (27.0-33.0); MEAN CORPUSCULAR VOLUME 96.6 fl (80.0-96.0); MONO # 0.4 10^3/uL (0.0-0.8); MONO % 4.5 % (0.0-5.0); NEUTROPHILS # 8.2 10^3/uL (1.5-8.5); PLATELET COUNT, AUTOMATED 176 10^3/uL (150-450); RED BLOOD COUNT 4.39 10^6/uL (4.30-6.10); WHITE BLOOD COUNT 9.1 10^3/uL (4.0-10.0)
[2020-09-19 05:08] LABS: ALBUMIN 2.8 GM/DL (3.2-5.2); BILIRUBIN,TOTAL 0.2 MG/DL (0.2-1.0); CALCIUM LEVEL 7.7 MG/DL (8.8-10.2); CREATININE FOR GFR 1.34 MG/DL (0.70-1.30); GLOMERULAR FILTRATION RATE 55.6 (>42); MAGNESIUM LEVEL 1.9 MG/DL (1.8-2.4); PHOSPHORUS LEVEL 2.2 MG/DL (2.5-4.9); POTASSIUM SERUM 5.4 MEQ/L (3.5-5.1); TOTAL PROTEIN 6.5 GM/DL (6.4-8.2)
[2020-09-19] MEDS: HEPARIN SOD (PORCINE) 5000UNITS/ML 1ML VIAL/SYRINGE SC SCH ×3 (05:41→21:21)
[2020-09-19] MEDS: IPRATROPIUM 0.5MG/ALBUTEROL 2.5MG INH SOL UD 3ML (DUONEB) NEB SCH ×4 (07:15→20:00)
[2020-09-19] MEDS: TIOTROPIUM INHALER/CAPSULE (SPIRIVA) INH SCH (07:15)
[2020-09-19] MEDS: SYMBICORT 160/4.5MCG INHALER 6GM INH SCH ×2 (07:15→21:42)
[2020-09-19] MEDS ORDERED: LevoFLOXacin IV 250 MG in IV 1 EA IV SCH (08:00)
[2020-09-19] MEDS: NICOTINE 14 MG/24 HR TRANSDERMAL TD SCH (08:14)
[2020-09-19] MEDS: HumaLOG INSULIN (NovoLOG) PER UNIT SC SCH ×4 (08:22→21:22)
[2020-09-19] MEDS: PANTOPRAZOLE 40MG VIAL (C9113 PER 1) IV SCH (08:22)
[2020-09-19] MEDS: FUROSEMIDE 20MG/2ML VIAL (J1940) IV SCH (08:23)
[2020-09-19] MEDS: SIMVASTATIN 40 MG TAB PO SCH (08:23)
[2020-09-19] MEDS: DIGOXIN 0.125 MG TAB PO SCH (08:24)
[2020-09-19] MEDS ORDERED: LEVEMIR (INSULIN DETEMIR) 1 UNITS/0.01ML SC SCH ×2 (09:00)
[2020-09-19 09:02] VITALS: BP_SYST 146; BP_SYST 165; BP_DIAS 70; BP_DIAS 72
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
[2020-09-19] MEDS ORDERED: FUROSEMIDE 20 MG TAB PO ONE (12:00)
[2020-09-19] MEDS: predniSONE 20 MG TAB PO SCH ×2 (12:44→21:20)
[2020-09-19] MEDS: metOLazone 2.5 MG TAB PO SCH ×2 (12:46→17:04)
[2020-09-19 13:41] VITALS: BP 154/82
[2020-09-19 16:25] VITALS: BP 148/82
[2020-09-19] MEDS: FUROSEMIDE 40 MG TAB PO SCH (17:41)
[2020-09-19 20:00] VITALS: BP 138/64
[2020-09-19] MEDS: LATANOPROST 0.005% OPHTH SOLN 2.5 ML OU SCH (21:20)
[2020-09-19] MEDS: LEVEMIR (INSULIN DETEMIR) 1 UNITS/0.01ML SC SCH (21:22)
[2020-09-19 22:11] LABS: CREATININE FOR GFR 1.64 MG/DL (0.70-1.30); GLOMERULAR FILTRATION RATE 44.1 (>42); MAGNESIUM LEVEL 1.7 MG/DL (1.8-2.4); POTASSIUM SERUM 4.8 MEQ/L (3.5-5.1)
[2020-09-20] VITALS (7 sets, daily range): BP systolic 140–162; BP diastolic 58–82
[2020-09-20] MEDS: HEPARIN SOD (PORCINE) 5000UNITS/ML 1ML VIAL/SYRINGE SC SCH ×3 (05:12→20:41)
[2020-09-20 05:38] LABS: HEMATOCRIT 39.5 % (42.0-52.0); HEMOGLOBIN 12.3 g/dl (13.5-17.5); MEAN CORPUSCULAR HEMOGLOBIN 29.2 pg (27.0-33.0); MEAN CORPUSCULAR HGB CONC 31.1 g/dl (32.0-36.5); MEAN CORPUSCULAR VOLUME 93.8 fl (80.0-96.0); PLATELET COUNT, AUTOMATED 170 10^3/uL (150-450); RED BLOOD COUNT 4.21 10^6/uL (4.30-6.10); WHITE BLOOD COUNT 8.7 10^3/uL (4.0-10.0)
[2020-09-20 05:57] LABS: BLOOD UREA NITROGEN 47 MG/DL (7-18); CARBON DIOXIDE LEVEL 40 MEQ/L (21-32); CHLORIDE LEVEL 97 MEQ/L (98-107); CREATININE FOR GFR 1.42 MG/DL (0.70-1.30); GLUCOSE, FASTING 207 MG/DL (70-100); MAGNESIUM LEVEL 1.8 MG/DL (1.8-2.4); POTASSIUM SERUM 4.6 MEQ/L (3.5-5.1); SODIUM LEVEL 136 MEQ/L (136-145)
[2020-09-20] MEDS: IPRATROPIUM 0.5MG/ALBUTEROL 2.5MG INH SOL UD 3ML (DUONEB) NEB SCH ×4 (08:00→20:00)
[2020-09-20] MEDS: TIOTROPIUM INHALER/CAPSULE (SPIRIVA) INH SCH (08:19)
[2020-09-20] MEDS: SYMBICORT 160/4.5MCG INHALER 6GM INH SCH ×2 (08:19→20:56)
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
[2020-09-20] MEDS: NICOTINE 14 MG/24 HR TRANSDERMAL TD SCH (09:00)
[2020-09-20] MEDS ORDERED: MAG SULF 1GM/100ML (MAG RUN) 1 GM in IV 1 EA IV ONE (09:00)
[2020-09-20] MEDS: HumaLOG INSULIN (NovoLOG) PER UNIT SC SCH ×4 (09:29→20:39)
[2020-09-20] MEDS: metOLazone 2.5 MG TAB PO SCH ×2 (09:30→17:42)
[2020-09-20] MEDS: predniSONE 20 MG TAB PO SCH ×2 (09:30→20:40)
[2020-09-20] MEDS: FUROSEMIDE 40 MG TAB PO SCH ×2 (09:30→18:18)
[2020-09-20] MEDS: DIGOXIN 0.125 MG TAB PO SCH (09:31)
[2020-09-20] MEDS: SIMVASTATIN 40 MG TAB PO SCH (09:32)
[2020-09-20] MEDS: LEVEMIR (INSULIN DETEMIR) 1 UNITS/0.01ML SC SCH ×2 (09:32→20:39)
--- NOTE | 2020-09-20 10:17 | REP ---
INDICATION: sobr/o chf COMPARISON: 09/17/2020 TECHNIQUE: Portable AP view of the chest FINDINGS: Mediastinum and cardiac silhouette are within normal limits and stable. Lung salvador demonstrate chronic changes and previously noted bibasilar infiltrates appear to be improved. No new consolidation. No definite evidence for CHF. No pneumothorax. IMPRESSION: Chronic stable changes. Improved aeration with decreased bibasilar infiltrates. No significant findings to suggest CHF although mild interstitial edema cannot be excluded. <Electronically signed by Ramos Deleon > 09/20/20 [id number]
[2020-09-20] MEDS: METOPROLOL 5 MG/5 ML VIAL IV SCH ×3 (13:05→13:24)
[2020-09-20] MEDS ORDERED: PILL CUTTER 1 EACH XX PRN (13:45)
[2020-09-20] MEDS: SOTALOL HCL 80 MG TAB PO SCH ×2 (14:00→19:00)
[2020-09-20] MEDS: LATANOPROST 0.005% OPHTH SOLN 2.5 ML OU SCH (20:39)
[2020-09-21 04:00] VITALS: BP 140/72
[2020-09-21] MEDS: HEPARIN SOD (PORCINE) 5000UNITS/ML 1ML VIAL/SYRINGE SC SCH (05:10)
[2020-09-21 05:43] LABS: HEMATOCRIT 40.7 % (42.0-52.0); HEMOGLOBIN 12.6 g/dl (13.5-17.5); MEAN CORPUSCULAR VOLUME 93.6 fl (80.0-96.0); PLATELET COUNT, AUTOMATED 187 10^3/uL (150-450); RED BLOOD COUNT 4.35 10^6/uL (4.30-6.10)
[2020-09-21 06:14] LABS: CALCIUM LEVEL 8.2 MG/DL (8.8-10.2); CREATININE FOR GFR 1.27 MG/DL (0.70-1.30); GLOMERULAR FILTRATION RATE 59.2 (>42); MAGNESIUM LEVEL 2.1 MG/DL (1.8-2.4); POTASSIUM SERUM 4.8 MEQ/L (3.5-5.1)
[2020-09-21] MEDS: IPRATROPIUM 0.5MG/ALBUTEROL 2.5MG INH SOL UD 3ML (DUONEB) NEB SCH ×2 (07:16→11:07)
[2020-09-21] MEDS: SYMBICORT 160/4.5MCG INHALER 6GM INH SCH (07:16)
[2020-09-21] MEDS: TIOTROPIUM INHALER/CAPSULE (SPIRIVA) INH SCH (07:17)
[2020-09-21] MEDS ORDERED: TIOT18INH INH (07:26)
[2020-09-21] MEDS ORDERED: PRED10TA2 PO (07:26)
[2020-09-21] MEDS ORDERED: NICO14PA TD (07:26)
[2020-09-21 08:00] VITALS: BP 160/80
[2020-09-21] MEDS: LEVEMIR (INSULIN DETEMIR) 1 UNITS/0.01ML SC SCH (08:47)
[2020-09-21] MEDS: SIMVASTATIN 40 MG TAB PO SCH (08:47)
[2020-09-21] MEDS: NICOTINE 14 MG/24 HR TRANSDERMAL TD SCH (09:00)
[2020-09-21] MEDS: DIGOXIN 0.125 MG TAB PO SCH (09:26)
[2020-09-21] MEDS: metOLazone 2.5 MG TAB PO SCH (09:26)
[2020-09-21] MEDS: HumaLOG INSULIN (NovoLOG) PER UNIT SC SCH ×2 (09:26→12:00)
[2020-09-21] MEDS: predniSONE 20 MG TAB PO SCH (09:26)
[2020-09-21] MEDS: SOTALOL HCL 80 MG TAB PO SCH (10:15)
[2020-09-21] MEDS: FUROSEMIDE 40 MG TAB PO SCH (10:15)
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
== END 2020-09-21 13:51 | disposition home health service (06) | DRG 208 ==
LOC: M ED 08:23 → M ED INP 10:36 → M PCU 17:04
PROVIDERS: ADMIT Internal Medicine Pulmonary Disease; ATTEND General Practice
PROC: 5A1945Z Respiratory Ventilation, 24-96 Consecutive Hours (ICD-10-PCS; principal; 2020-09-14)
DX: J96.21 Acute and chronic respiratory failure with hypoxia (principal); I50.33 Acute on chronic diastolic (congestive) heart failure; I48.20 Chronic atrial fibrillation, unspecified; J44.1 Chronic obstructive pulmonary disease with (acute) exacerbation; N17.9 Acute kidney failure, unspecified; I11.0 Hypertensive heart disease with heart failure; E11.65 Type 2 diabetes mellitus with hyperglycemia; S22.20XD Unspecified fracture of sternum, subsequent encounter for fracture with routine healing; E87.5 Hyperkalemia; J96.22 Acute and chronic respiratory failure with hypercapnia; E83.39 Other disorders of phosphorus metabolism; F17.200 Nicotine dependence, unspecified, uncomplicated; Z79.899 Other long term (current) drug therapy; Z79.4 Long term (current) use of insulin; Z91.030 Bee allergy status; Z95.0 Presence of cardiac pacemaker

== ENCOUNTER 2020-10-17 22:16 | Inpatient (IN) | payer MEDICARE ==
[~2020-10-17] VITALS: Ht 170.2 cm; Wt 85.8 kg
[~2020-10-17 22:16] MED LIST: ALBU83IN INH; BASA100I SC; ELIQ5TAB PO; FURO20TA2 PO; FURO40TA2 PO; IPRA6SP; LISI-898 PO; METF-838 PO; METF10004 PO; NICO14PA TD; PATIENT COMMENT; PRED10TA2 PO; SIMV40TA20 PO; SOTA120T PO; TIOT18INH INH; TRUL10IN SC; XALA0.007 OP; XALA0.007 OU
--- OUTSIDE RECORDS SUMMARY | 2020-10-17 22:21 | CCD ---
Author Author [facility] Organization [facility] Address Unknown Phone Unavailable Care Team Providers Care Press Clippings Cutter And Paster Name Role Phone [place], Mariae Brandee MANAGER PRIVATE Unavailable Unavailable [place], Mariae Brandee MANAGER PRIVATE Unavailable Unavailable [place], Mariae [place] MANAGER PRIVATE Unavailable Unavailable [place], Mariae Brandee MANAGER PRIVATE Unavailable Unavailable [place], Mariae Brandee MANAGER PRIVATE Unavailable Unavailable [place], Mariae [place] MANAGER PRIVATE Unavailable Unavailable [place], Mariae [place] MANAGER PRIVATE Unavailable Unavailable Marlon, Mariae [place] MANAGER PRIVATE Unavailable Unavailable [place], Mariae Brandee MANAGER PRIVATE Unavailable Unavailable Marlon, Mariae [place] MANAGER PRIVATE Unavailable Unavailable Marlon, Mariae Brandee MANAGER PRIVATE Unavailable Unavailable Marlon, Mariae Brandee MANAGER PRIVATE Unavailable Unavailable Marlon, Mariae Brandee MANAGER PRIVATE Unavailable Unavailable [place], Mariae Brandee MANAGER PRIVATE Unavailable Unavailable Re-disclosure Warning The records that you are about to access may contain information from federally-assisted alcohol or drug abuse programs. If such information is present, then the following federally mandated warning applies: This information has been disclosed to you from records protected by federal confidentiality rules (42 CFR part 2). The federal rules prohibit you from making any further disclosure of this information unless further disclosure is expressly permitted by the written consent of the person to whom it pertains or as otherwise permitted by 42 CFR part 2. A general authorization for the release of medical or other information is NOT sufficient for this purpose. The Federal rules restrict any use of the information to criminally investigate or prosecute any alcohol or drug abuse patient.The records that you are about to access may contain highly sensitive health information, the redisclosure of which is protected by Article 27-F of the [place] State Public Health law. If you continue you may have access to information: Regarding HIV / AIDS; Provided by facilities licensed or operated by the [facility] Office of Mental Health; or Provided by the [facility] Office for People With Developmental Disabilities. If such information is present, then the following [facility] mandated warning applies: This information has been disclosed to you from confidential records which are protected by state law. State law prohibits you from making any further disclosure of this information without the specific written consent of the person to whom it pertains, or as otherwise permitted by law. Any unauthorized further disclosure in violation of state law may result in a fine or skilled nursing sentence or both. A general authorization for the release of medical or other information is NOT sufficient authorization for further disc losure. Encounters Encounter Providers Location Date Indications Data Source(s ) Outpatient Attender: Brandee Mason NPR eferrer: Brandee Mason NPConsultant: Brandee Mason MANAGER PRIVATE 10/12/2020 10:47:00 AM EST - 10/12/2020 10:57: 00 AM EST [facility] Medications Medication Brand Name Start Date Product Form Dose Route Admi nistrative Instructions Pharmacy Instructions Status Indications Reaction Description Data Source(s) 2.5 mg /3 mL (0.083 %) 10/12/2020 12:00:00 AM EST solu tion for nebulization 150 INHALE ONE VIAL VIA NEBULIZER EVERY 4 HO URS INHALE ONE VIAL VIA NEBULIZER EVERY 4 HOURS SOLD: 10/13/2020 [facility] 0.5 mg-3 mg(2.5 mg base)/3 mL 10/12/2020 12:00:0 0 AM EST solution for nebulization 75 INHALE THE CONTENTS OF ONE VIAL VIA NEBULIZER EVERY 4 HOURS ALTERNATING EVERY 2 HOUR WITH ALBUTEROL ONLY INHALE THE CONTENTS OF ONE VIAL VIA NEBULIZER EVERY 4 HOURS ALTERNATING EVERY 2 HOUR WITH ALBUTEROL ONLY SOLD: 10/13/2020 [facility] 2.5 mg /3 mL (0.083 %) 10/03/2020 12:00:00 AM EST solu tion for nebulization 180 INHALE ONE VIAL VIA NEBULIZE R EVERY 4 TO 6 HOURS FOR SHORTNESS OF BREATH/WHEEZE INHALE ONE VIAL VIA NEBULIZER EVERY 4 TO 6 HOURS FOR SHORTNESS OF BREATH/WHEEZE SOLD: 10/05/2020 [facility] 0.75 mg/0.5 mL 10/03/2020 12:00:00 AM EST pen injector 2 INJECT 0.75 UNDER THE SKIN ONCE WEEKLY INJECT 0.75 UNDER THE SKIN ONCE WEEKLY SOLD: 10/05/2020 [facility] 100-62.5-25 mcg 10/03/2020 12:00:00 AM EST blister with susan ce 60 INHALE ONE PUFF BY MOUTH EVERY DAY INHALE ONE PUFF BY MOUTH EVERY DAY SOLD: 10/05/2020 [facility] Insurance Providers Payer name Policy type / Coverage type Policy ID Covered democrat ID Covered democrat's relationship to maldonado Policy [place] Plan Information MEDICARE [id number] SP [id number] [id number] WELLCARE [id number] SP [id number] WELLCARE -O/P [id number] 18 [id number] WELLCARE O [id number] S [id number] Problems, Conditions, and Diagnoses Code Display Name Description Problem Type Effective Dates Data Source(s) Z1321 Encounter for screening for nutritional disorder Encounter for screening for nutritional disorder Diagnosis 10/12/2020 10:47:00 AM [facility] E559 Vitamin D deficiency, unspecified Vitamin D defi ciency, unspecified Diagnosis 10/12/2020 10:47:00 AM [facility] E119 Type 2 diabetes mellitus without complic ations Type 2 diabetes mellitus without complications Diagnosis 10/12/2020 10:47:00 AM [facility] E782 Mixed hyperlipidemia Mixed hyperlipidemia Diagnosis 10/12/2020 10:47:00 AM [facility] I10 Essential (primary) hypertension Essential (primary) h ypertension Diagnosis 10/12/2020 10:47:00 AM [facility] Results ID Date Data Source [id number] 10/13/2020 12:00:00 AM EST [facility] Name Value Range Interpretation Code Description Data Hazel rce(s) Supporting Document(s) SARS-CoV2 Rapid Antigen Negative [facility] This lab was ordered by [facility] AN [facility] and reported by [facility]. ID Date Data Source [id number] 10/12/2020 02:57:00 PM [facility] Name Value Range Interpretation Code Description Data Hazel rce(s) Supporting Document(s) LAB - SPECIMEN REJECTION [facility] Specimen Integrity/Specimen Recollection The patient sample needs to be resubmitted for the following reason: Test(s) Ordered CMP, VIT D [facility] Rejection Reason Specimen Hemolyzed [facility] { One or more of the tests you ordered cannot be performed.{ Please recollect, reorder, and resubmit if needed. ID Date Data Source [id number] 10/12/2020 02:28:00 PM [facility] Name Value Range Interpretation Code Description Data Hazel rce(s) Supporting Document(s) CVE PANEL [facility] LIPID PANEL Cholesterol [Mass/volume] in Serum or Plasma 165 MG/DL 131 - 200 [facility] Deprecated Triglyceride [Mass/volume] in Serum or Plasma 122 MG/DL 3 5 - 160 [facility] HDL 48 MG/DL 29 - 86 [facility] Cholesterol in LDL [Mass/volume] in Serum or Plasma by Direc t assay 88 mg/dL 65 - 175 [facility] Cholesterol.total/Cholesterol in HDL [Mass Ratio] in Serum o r Plasma 3.4 3.4 - 4.9 L [facility] LDL/HDL 1.83 1.00 - 3.55 [facility] ital CVE RISK CHOL/HDL LDL/HDLMEN: 1/2 AVERAGE 3.43 1.00 AVERAGE 4.97 3.55 2X AVERAGE 9.55 6.25 3X AVERAGE 23.99 7.99WOMEN: 1/2 AVERAGE 3.27 1.47 AVERAGE 4.44 3.22 2X AVERAGE 7.05 5.03 3X AVERAGE 11.04 6.14 ID Date Data Source [id number] 10/12/2020 02:28:00 PM [facility] Name Value Range Interpretation Code Description Data Hazel rce(s) Supporting Document(s) BNP 551 PG/ML 0 - 125 H [facility] ID Date Data Source [id number] 10/12/2020 02:18:00 PM [facility] Name Value Range Interpretation Code Description Data Hazel rce(s) Supporting Document(s) Hemoglobin A1c/Hemoglobin.total in Blood 8.7 % 4.4 - 6.1 H [facility] {A1]{HB] ID Date Data Source [id number] 10/12/2020 01:21:00 PM EST [facility] Name Value Range Interpretation Code Description Data Hazel rce(s) Supporting Document(s) CBC NO DIFF [facility] ital COMPLETE BLOOD COUNT Leukocytes [#/volume] in Blood by Automated count 8.3 10^3/uL 4.2 - 1 1.0 [facility] Erythrocytes [#/volume] in Blood by Automated count 4.78 10^6/uL 4. 50 - 6.30 [facility] Hemoglobin [Mass/volume] in Blood 13.9 g/dL 14.0 - 16.0 L [facility] Hematocrit [Volume Fraction] of Blood by Automated count 46.2 % 4 1.0 - 51.0 [facility] Erythrocyte mean corpuscular volume [Entitic volume] by Auto mated count 96.7 fL 80.0 - 94.0 H [facility] Erythrocyte mean corpuscular hemoglobin [Entitic mass] by Automated count 29.1 pg 27.0 - 34.0 [facility] Erythrocyte mean corpuscular hemoglobin concentration [Mass/volume] by Automated count 30.1 g/dL 31.0 - 36.0 L [facility] Erythrocyte distribution width [Ratio] by Automated count 14.0 % 11.5 - 14.8 [facility] Platelets [#/volume] in Blood by Automated count 204 10^3/uL 150 - 45 0 [facility] Platelet mean volume [Entitic volume] in Blood by Automated count 11.7 fL 7.4 - 10.4 H [facility] ID Date Data Source [id number] 09/14/2020 08:32:00 AM EST [facility] Name Value Range Interpretation Code Description Data Hazel rce(s) Supporting Document(s) SARS coronavirus 2 RNA [Presence] in Res piratory specimen by CHANDLER with probe detection [facility] This lab was ordered by [facility] a nd reported by [facility]. Procedure
[2020-10-17] MEDS ORDERED: COMBIVENT RESPIMAT 100-20MCG INHALER 4GM INH ONE (22:30)
[2020-10-17 22:50] LABS: ABG BASE EXCESS 10.1 (-2.0-2.0); ABG HCO3 41.2 MEQ/L (22.0-26.0); ABG O2 SATURATION 96.6 % (95.0-99.0); ABG PARTIAL PRESSURE O2 91.6 mmHg (75.0-100.0); ABG STANDARD HCO3 33.9 MEQ/L (22.0-26.0); ABG TOTAL CO2 44.1 MEQ/L (23.0-31.0)
[2020-10-17 22:51] LABS: ABG PARTIAL PRESSURE CO2 93.9 mmHg (35.0-45.0)
[2020-10-17 22:54] LABS: BASO # 0.1 10^3/uL (0.0-0.2); BASO % 0.7 % (0.0-1.0); EOS # 0.3 10^3/uL (0.0-0.5); EOS % 2.9 % (0.0-3.0); HEMATOCRIT 45.6 % (42.0-52.0); HEMOGLOBIN 13.1 g/dl (13.5-17.5); LYMPH # 1.4 10^3/uL (1.5-5.0); LYMPH % 15.7 % (24.0-44.0); MEAN CORPUSCULAR HEMOGLOBIN 28.1 pg (27.0-33.0); MEAN CORPUSCULAR HGB CONC 28.7 g/dl (32.0-36.5); MEAN CORPUSCULAR VOLUME 97.6 fl (80.0-96.0); MONO # 0.7 10^3/uL (0.0-0.8); MONO % 7.9 % (0.0-5.0); NEUTROPHILS # 6.3 10^3/uL (1.5-8.5); NEUTROPHILS % 71.4 % (36.0-66.0); PLATELET COUNT, AUTOMATED 218 10^3/uL (150-450); RED BLOOD COUNT 4.67 10^6/uL (4.30-6.10); WHITE BLOOD COUNT 8.8 10^3/uL (4.0-10.0)
[2020-10-17 23:04] LABS: INR 1.32; PROTHROMBIN TIME 16.7 SECONDS (12.5-14.3)
[2020-10-17] MEDS ORDERED: INCR1INH INH (23:17)
[2020-10-17] MEDS ORDERED: IPRA0.00 INH (23:17)
[2020-10-17] MEDS ORDERED: NICO14DI24 TD (23:17)
[2020-10-17 23:37] LABS: ALBUMIN 2.6 GM/DL (3.2-5.2); ALT/SGPT 15 U/L (12-78); BILIRUBIN,DIRECT < 0.1 MG/DL (0.0-0.2); BILIRUBIN,TOTAL 0.2 MG/DL (0.2-1.0); BLOOD UREA NITROGEN 50 MG/DL (7-18); CALCIUM LEVEL 9.5 MG/DL (8.8-10.2); CARBON DIOXIDE LEVEL 42 MEQ/L (21-32); CHLORIDE LEVEL 97 MEQ/L (98-107); CK-MB VALUE MASS < 1.0 NG/ML (<3.6); CPK CREATINE PHOSPHOKINASE 32 U/L (39-308); CREATININE FOR GFR 1.51 MG/DL (0.70-1.30); GLOMERULAR FILTRATION RATE 48.5 (>42); GLUCOSE, FASTING 162 MG/DL (70-100); MB/CK RELATIVE INDEX 3.12 (< OR =4); NT-PRO BNP 779 PG/ML (<125); POTASSIUM SERUM 4.9 MEQ/L (3.5-5.1); SODIUM LEVEL 137 MEQ/L (136-145); TOTAL PROTEIN 7.7 GM/DL (6.4-8.2); TROPONIN I < 0.02 NG/ML (< 0.10)
[2020-10-17] MEDS ORDERED: FUROSEMIDE 40MG/4ML VIAL (J1940) IV ONE (23:45)
--- NOTE | 2020-10-17 23:47 | REPVR ---
PROCEDURE INFORMATION: Exam: XR Chest, 1 View Exam date and time: 10/17/2020 11:14 PM Age: 75 years old Clinical indication: Cough and dyspnea; Additional info: Dyspnea/cough TECHNIQUE: Imaging protocol: XR of the chest Views: 1 view. 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 Lungs: New or increased bilateral pulmonary infiltrates since the prior study. Coarse interstitium which is slightly increased. Pleural space: Unremarkable. No pleural effusion. No pneumothorax. Heart/Mediastinum: The heart and mediastinum are unchanged. Bones/joints: Unremarkable. IMPRESSION: Coarse interstitium with minimal scattered bilateral pulmonary infiltrates since 09/20/2020 which may reflect pneumonia. Electronically signed by: Quinten Durant On 10/17/2020 23:46:50 PM
[2020-10-18] MEDS ORDERED: PIPERACILLIN/TAZOBACTAM SOD 4.5 GM in D5W MINI-BAG PLUS 50 ML IV ONE ×2
[2020-10-18] MEDS ORDERED: VANCOMYCIN HCL 1,000 MG, VIAL MATE ADAPTER 1 EACH in D5W 250 ML IV ONE ×3
[2020-10-18] MEDS ORDERED: MOM 30ML SUSPENSION UDC PO PRN (00:30)
[2020-10-18] MEDS ORDERED: MAALOX 30 ML SUSP *UDC PO PRN (00:30)
[2020-10-18] MEDS ORDERED: GLUCAGON INJ 1MG VIAL SC PRN (00:30)
[2020-10-18] MEDS ORDERED: ACETAMINOPHEN TAB 650MG DOSE (2X325MG) PO PRN (00:30)
[2020-10-18] MEDS ORDERED: DEXTROSE 50% 50 ML SYRINGE IV PRN (00:30)
[2020-10-18] MEDS ORDERED: GLUCOSE 4GM CHEW TABLET PO PRN (00:30)
[2020-10-18] MEDS ORDERED: LEVALBUTEROL 1.25 MG/0.5 ML CONCENTRATE NEB NEB PRN (00:30)
[2020-10-18 00:56] LABS: D-DIMER QUANT 2058.95 ng/ml (<500)
--- OUTSIDE RECORDS SUMMARY | 2020-10-18 00:56 | CCD ---
Author Author [facility] Organization [facility] Address Unknown Phone Unavailable Care Team Providers Care Solder Technician Name Role Phone [place], Mariae Brandee PARTITION ASSEMBLER Unavailable Unavailable [place], Mariae Brandee PARTITION ASSEMBLER Unavailable Unavailable [place], Mariae [place] PARTITION ASSEMBLER Unavailable Unavailable [place], Mariae Brandee PARTITION ASSEMBLER Unavailable Unavailable [place], Mariae Brandee PARTITION ASSEMBLER Unavailable Unavailable [place], Mariae [place] PARTITION ASSEMBLER Unavailable Unavailable [place], Mariae [place] PARTITION ASSEMBLER Unavailable Unavailable Marlon, Mariae [place] PARTITION ASSEMBLER Unavailable Unavailable [place], Mariae Brandee PARTITION ASSEMBLER Unavailable Unavailable Marlon, Mariae [place] PARTITION ASSEMBLER Unavailable Unavailable Marlon, Mariae Brandee PARTITION ASSEMBLER Unavailable Unavailable Marlon, Mariae Brandee PARTITION ASSEMBLER Unavailable Unavailable Marlon, Mariae Brandee PARTITION ASSEMBLER Unavailable Unavailable [place], Mariae Brandee PARTITION ASSEMBLER Unavailable Unavailable Re-disclosure Warning The records that [...] is protected by Article 27-F of the [place] State Public Health law. If you continue you may have access to information: Regarding HIV / AIDS; Provided by facilities licensed or operated by the [facility] Office of Mental Health; or Provided by the [facility] Office for People With Developmental Disabilities. If such information is present, then the following [facility] mandated warning applies: This information has been [...] law may result in a fine or fpc sentence or both. A general authorization for the release of medical or other information is NOT sufficient authorization for further disc losure. Encounters Encounter Providers Location Date Indications Data Source(s ) Outpatient Attender: Brandee Mason NPR eferrer: Brandee Mason NPConsultant: Brandee Mason PARTITION ASSEMBLER 10/12/2020 10:47:00 AM EST - 10/12/2020 10:57: 00 AM EST [facility] Medications Medication Brand Name Start Date Product [...] type / Coverage type Policy ID Covered libertarian ID Covered libertarian's relationship to maldonado Policy Maldonado Plan Information MEDICARE [id number] SP [id number] WELLCARE [id number] SP [id number] WELLCARE -O/P [id number] 18 [id number] WELLCARE O [id number] S [id number] Problems, Conditions, and Diagnoses Code Display Name Description Problem Type Effective Dates Data Source(s) Z1321 Encounter for screening for nutritional disorder Encounter for screening for nutritional disorder Diagnosis 10/12/2020 10:47:00 AM [facility] E559 Vitamin D deficiency, unspecified Vitamin D defi ciency, unspecified Diagnosis 10/12/2020 10:47:00 AM [facility] E119 Type 2 diabetes mellitus without complic ations Type 2 diabetes mellitus without complications Diagnosis 10/12/2020 10:47:[address] [facility] E782 Mixed hyperlipidemia Mixed hyperlipidemia Diagnosis 10/12/2020 10:47:00 AM [facility] I10 Essential (primary) hypertension Essential (primary) h ypertension Diagnosis 10/12/2020 10:47:00 AM [facility] Results ID Date Data Source [id number] 10/13/2020 12:00:00 AM EST [facility] Name Value Range Interpretation Code Description Data Hazel rce(s) Supporting Document(s) SARS-CoV2 Rapid Antigen Negative [facility] This lab was ordered by [facility] and reported by [facility]. ID Date Data Source [id number] 10/12/2020 02:57:00 PM [facility] Name Value Range Interpretation Code Description Data Hazel rce(s) Supporting Document(s) LAB - SPECIMEN REJECTION [facility] Specimen Integrity/Specimen Recollection The patient sample needs to be resubmitted for the following reason: Test(s) Ordered CMP, VIT D [facility] Rejection Reason Specimen Hemolyzed [facility] { One or more of the tests you ordered cannot be performed.{ Please recollect, reorder, and resubmit if needed. ID Date Data Source [id number] 10/12/2020 02:28:00 PM [facility] Name Value Range Interpretation Code Description Data Hazel rce(s) Supporting Document(s) CVE PANEL [facility] LIPID PANEL Cholesterol [Mass/volume] in Serum or Plasma 165 MG/DL 131 - 200 [facility] Deprecated Triglyceride [Mass/volume] in Serum or Plasma 122 MG/DL 3 5 - 160 [facility] HDL 48 MG/DL 29 - 86 [facility] Cholesterol in LDL [Mass/volume] in Serum or Plasma by Direc t assay 88 mg/dL 65 - 175 [facility] Cholesterol.total/Cholesterol in HDL [Mass Ratio] in Serum o r Plasma 3.4 3.4 - 4.9 L [facility] LDL/HDL 1.83 1.00 - 3.55 [facility] ital CVE RISK CHOL/HDL LDL/HDLMEN: 1/2 AVERAGE 3.43 1.00 AVERAGE 4.97 3.55 2X AVERAGE 9.55 6.25 3X AVERAGE 23.99 7.99WOMEN: 1/2 AVERAGE 3.27 1.47 AVERAGE 4.44 3.22 2X AVERAGE 7.05 5.03 3X AVERAGE 11.04 6.14 ID Date Data Source [id number] 10/12/2020 02:28:00 PM [facility] Name Value Range Interpretation Code Description Data Hazel rce(s) Supporting Document(s) BNP 551 PG/ML 0 - 125 H [facility] ID Date Data Source [id number] 10/12/2020 02:18:00 PM [facility] Name Value Range Interpretation Code Description Data Hazel rce(s) Supporting Document(s) Hemoglobin A1c/Hemoglobin.total in Blood 8.7 % 4.4 - 6.1 H [facility] {A1]{HB] ID Date Data Source [id number] 10/12/2020 01:21:00 PM EST [facility] Name Value Range Interpretation Code Description Data Hazel rce(s) Supporting Document(s) CBC NO DIFF [facility] ital COMPLETE BLOOD COUNT Leukocytes [#/volume] in Blood by Automated count 8.3 10^3/uL 4.2 - 1 1.0 [facility] Erythrocytes [#/volume] in Blood by Automated count 4.78 10^6/uL 4. 50 - 6.30 [facility] Hemoglobin [Mass/volume] in Blood 13.9 g/dL 14.0 - 16.0 L [facility] Hematocrit [Volume Fraction] of Blood by Automated count 46.2 % 4 1.0 - 51.0 [facility] Erythrocyte mean corpuscular volume [Entitic volume] by Auto mated count 96.7 fL 80.0 - 94.0 H [facility] Erythrocyte mean corpuscular hemoglobin [Entitic mass] by Automated count 29.1 pg 27.0 - 34.0 [facility] Erythrocyte mean corpuscular hemoglobin concentration [Mass/volume] by Automated count 30.1 g/dL 31.0 - 36.0 L [facility] Erythrocyte distribution width [Ratio] by Automated count 14.0 % 11.5 - 14.8 [facility] Platelets [#/volume] in Blood by Automated count 204 10^3/uL 150 - 45 0 [facility] Platelet mean volume [Entitic volume] in Blood by Automated count 11.7 fL 7.4 - 10.4 H [facility] ID Date Data Source [id number] 09/14/2020 08:32:00 AM EST [facility] Name Value Range Interpretation Code Description Data Hazel rce(s) Supporting Document(s) SARS coronavirus 2 RNA [Presence] in Res piratory specimen by CHANDLER with probe detection [facility] This lab was ordered by [facility] a nd reported by [facility]. Procedure
[2020-10-18] MEDS: methylPREDNISolone 125MG 2ML VIAL IV SCH ×3 (01:00→17:28)
--- OUTSIDE RECORDS SUMMARY | 2020-10-18 01:06 | CCD ---
Author Author [facility] Organization [facility] Address Unknown Phone Unavailable Care Team Providers Care Sales Agent [employer] Insurance Name Role Phone [place], Mariae Brandee SALESPERSON HANDBAGS Unavailable Unavailable [place], Mariae Brandee SALESPERSON [employer] Unavailable Unavailable [place], Mariae [place] SALESPERSON [employer]S Unavailable Unavailable [place], Mariae Brandee SALESPERSON [employer] Unavailable Unavailable [place], Mariae Brandee SALESPERSON [employer]BAGS Unavailable Unavailable [place], Mariae [place] SALESPERSON [employer]BAGS Unavailable Unavailable [place], Mariae [place] SALESPERSON [employer]BAGS Unavailable Unavailable Marlon, Mariae [place] SALESPERSON [employer]BAGS Unavailable Unavailable [place], Mariae Brandee SALESPERSON [employer]BAGS Unavailable Unavailable Marlon, Mariae [place] SALESPERSON [employer]BAGS Unavailable Unavailable Marlon, Mariae Brandee SALESPERSON [employer]AG[employer] Unavailable Unavailable Marlon, Mariae Brandee SALESPERSON [employer] Unavailable Unavailable Marlno, Mariae Brandee SALESPERSON [employer]BAGS Unavailable Unavailable [place], Mariae Brandee SALESPERSON HANDBAGS Unavailable Unavailable Re-disclosure Warning The records that [...] is protected by Article 27-F of the [place] State Public Health law. If you continue you may have access to information: Regarding HIV / AIDS; Provided by facilities licensed or operated by the [facility] Office of Mental Health; or Provided by the [facility] Office for People With Developmental Disabilities. If such information is present, then the following [facility] mandated warning applies: This information has [...] law may result in a fine or fci sentence or both. A general authorization for the release of medical or other information is NOT sufficient authorization for further disc losure. Encounters Encounter Providers Location Date Indications Data Source(s ) Outpatient Attender: Brandee Mason NPR eferrer: Brandee Mason NPConsultant: Brandee Mason SALESPERSON HANDBAGS 10/12/2020 10:47:00 AM EST - 10/12/2020 10:57: 00 AM EST [facility] Medications Medication Brand Name Start Date [...] type / Coverage type Policy ID Covered republican ID Covered republican's relationship to maldonado Policy Maldonado Plan Information MEDICARE [id number] SP [id number] WELLCARE [id number] SP [id number] WELLCARE -O/P [id number] 18 [id number] WELLCARE O [id number] S [id number] Problems, Conditions, and Diagnoses Code Display Name Description Problem Type Effective Dates Data Source(s) Z1321 Encounter for screening for nutritional disorder Encounter for screening for nutritional disorder Diagnosis 10/12/2020 10:47:00 AM [facility] E559 Vitamin D deficiency, unspecified Vitamin D defi ciency, unspecified Diagnosis 10/12/2020 10:47:00 AM [facility] E119 Type 2 diabetes mellitus without complic ations Type 2 diabetes mellitus without complications Diagnosis 10/12/2020 10:47:[address] [facility] E782 Mixed hyperlipidemia Mixed hyperlipidemia Diagnosis 10/12/2020 10:47:00 AM [facility] I10 Essential (primary) hypertension Essential (primary) h ypertension Diagnosis 10/12/2020 10:47:00 AM [facility] Results ID Date Data Source [id number] 10/13/2020 12:00:00 AM EST [facility] Name Value Range Interpretation Code Description Data Hazel rce(s) Supporting Document(s) SARS-CoV2 Rapid Antigen Negative [facility] This lab was ordered by [facility] and reported by [facility]. ID Date Data Source [id number] 10/12/2020 02:57:00 PM [facility] Name Value Range Interpretation Code Description Data Hazel rce(s) Supporting Document(s) LAB - SPECIMEN REJECTION [facility] Specimen Integrity/Specimen Recollection The patient sample needs to be resubmitted for the following reason: Test(s) Ordered CMP, VIT D [facility] Rejection Reason Specimen Hemolyzed [facility] { One or more of the tests you ordered cannot be performed.{ Please recollect, reorder, and resubmit if needed. ID Date Data Source [id number] 10/12/2020 02:28:00 PM [facility] Name Value Range Interpretation Code Description Data Hazel rce(s) Supporting Document(s) CVE PANEL [facility] LIPID PANEL Cholesterol [Mass/volume] in Serum or Plasma 165 MG/DL 131 - 200 [facility] Deprecated Triglyceride [Mass/volume] in Serum or Plasma 122 MG/DL 3 5 - 160 [facility] HDL 48 MG/DL 29 - 86 [facility] Cholesterol in LDL [Mass/volume] in Serum or Plasma by Direc t assay 88 mg/dL 65 - 175 [facility] Cholesterol.total/Cholesterol in HDL [Mass Ratio] in Serum o r Plasma 3.4 3.4 - 4.9 L [facility] LDL/HDL 1.83 1.00 - 3.55 [facility] ital CVE RISK CHOL/HDL LDL/HDLMEN: 1/2 AVERAGE 3.43 1.00 AVERAGE 4.97 3.55 2X AVERAGE 9.55 6.25 3X AVERAGE 23.99 7.99WOMEN: 1/2 AVERAGE 3.27 1.47 AVERAGE 4.44 3.22 2X AVERAGE 7.05 5.03 3X AVERAGE 11.04 6.14 ID Date Data Source [id number] 10/12/2020 02:28:00 PM [facility] Name Value Range Interpretation Code Description Data Hazel rce(s) Supporting Document(s) BNP 551 PG/ML 0 - 125 H [facility] al ID Date Data Source [id number] 10/12/2020 02:18:00 PM [facility] Name Value Range Interpretation Code Description Data Hazel rce(s) Supporting Document(s) Hemoglobin A1c/Hemoglobin.total in Blood 8.7 % 4.4 - 6.1 H [facility] {A1]{HB] ID Date Data Source [id number] 10/12/2020 01:21:00 PM EST [facility] Name Value Range Interpretation Code Description Data Hazel rce(s) Supporting Document(s) CBC NO DIFF [facility] ital COMPLETE BLOOD COUNT Leukocytes [#/volume] in Blood by Automated count 8.3 10^3/uL 4.2 - 1 1.0 [facility] Erythrocytes [#/volume] in Blood by Automated count 4.78 10^6/uL 4. 50 - 6.30 [facility] Hemoglobin [Mass/volume] in Blood 13.9 g/dL 14.0 - 16.0 L [facility] Hematocrit [Volume Fraction] of Blood by Automated count 46.2 % 4 1.0 - 51.0 [facility] Erythrocyte mean corpuscular volume [Entitic volume] by Auto mated count 96.7 fL 80.0 - 94.0 H [facility] Erythrocyte mean corpuscular hemoglobin [Entitic mass] by Automated count 29.1 pg 27.0 - 34.0 [facility] Erythrocyte mean corpuscular hemoglobin concentration [Mass/volume] by Automated count 30.1 g/dL 31.0 - 36.0 L [facility] Erythrocyte distribution width [Ratio] by Automated count 14.0 % 11.5 - 14.8 [facility] Platelets [#/volume] in Blood by Automated count 204 10^3/uL 150 - 45 0 [facility] Platelet mean volume [Entitic volume] in Blood by Automated count 11.7 fL 7.4 - 10.4 H [facility] ID Date Data Source [id number] 09/14/2020 08:32:00 AM EST [facility] Name Value Range Interpretation Code Description Data Hazel rce(s) Supporting Document(s) SARS coronavirus 2 RNA [Presence] in Res piratory specimen by CHANDLER with probe detection [facility] This lab was ordered by [facility] a nd reported by [facility]. Procedure
[2020-10-18 01:31] LABS: HEMOGLOBIN A1c 7.4 %
--- NOTE | 2020-10-18 01:42 | HPEPDOC ---
[facility] Medical History & Physical Date of Admission Oct 18, 2020 Date of Service: Oct 18, 2020 Attending Physician: COLIN SHERIFF MD History and Physical TIME OF SERVICE: 230AM CHIEF COMPLAINT: dyspnea HISTORY OF PRESENT ILLNESS: This 75 yr old gentleman was last admitted from Sep 14 to Sep 21 for management of acute on chronic vent dependent hypercarbic respiratory failure, rapid A fib, possible acute HFpEF and ANISA. Over the last few days he patient had developed gradually worsening dyspnea. Yesterday morning his dyspnea became much worse. As a result he had difficulties walking, and felt weak. Increasing his supplemental O2 from 2 to 3L and using his breathing treatments didnt help m uch. He denied having any changes in his dyspnea with lying down flat. He denied having any chest pain, denied any changes in his chronic dry cough, and reported that his chronic bilateral lower extremity edema was stable. He denied having any exposure to smoke or fumes but did admit to eating English fries that were a bit salty and drinking more soda than usual. Yesterday evening his sister called EMS. Per when EMS found the patient his O2 sats were about 84%; on arrival in the ER he was found to have hypercapnia with acidosis and was subsequently put on BIPAP. REVIEW OF SYSTEMS: 12-point review of systems negative except as listed in HPI PAST MEDICAL/ SURGICAL HISTORY: Chronic Atrial fibrillation Pacemaker COPD Chronic O2 dependent respiratory failure 2L Possible HFpEF ? DM2 Chronic HTN DLP CKD 3 SOCIAL HISTORY: He smokes 2packs per day FAMILY HISTORY: ALLERGIES: Please see below. HOME MEDICATIONS: Please see below. PHYSICAL EXAMINATION: Vital Signs Date Time Temp Pulse Resp B/P (MAP) Pulse Ox O2 Delivery O2 Flow Rate FiO2 10/17/20 22:34 99.0 92 24 145/68 (93) 98 Nasal Cannula 2.0 10/17/20 23:32 50 GENERAL APPEARANCE: well nourished / NAD HEENT: bipap mask in place CARDIOVASCULAR: RRR/NMRG / +2 BLE edema LUNGS: breath sounds diminished / lungs hyper-resonant on percussion MUSCULOSKELETAL: NCAT / DAVE x 4 INTEGUMENT: not cyanotic NEUROLOGICAL: speech not dysarthric PSYCHIATRIC: A&Ox 3 LABORATORY DATA: 10/17/20 22:39 10/17/20 22:39: Immature Granulocyte % (Auto) 1.4, Neutrophils (%) (Auto) 71.4H, Lymphocytes (%) (Auto) 15.7L, Monocytes (%) (Auto) 7.9H, Eosinophils (%) (Auto) 2.9, Basophils (%) (Auto) 0.7, Neutrophils # (Auto) 6.3, Lymphocytes # (Auto) 1.4L, Monocytes # (Auto) 0.7, Eosinophils # (Auto) 0.3, Basophils # (Auto) 0.1, Nucleated Red Blood Cells % (auto) 0.0, Prothrombin Time 16.7H, Prothromb Time International Ratio 1.32, D-Dimer, Quantitative 2058.95H, Anion Gap , Glomerular Filtration Rate 48.5, Calcium Level 9.5, Total Bilirubin 0.2, Direct Bilirubin < 0.1, Aspartate Amino Transf (AST/SGOT) 13, Alanine Aminotransferase (ALT/SGPT) 15, Alkaline Phosphatase 78, Total Creatine Kinase 32L, Creatine Kinase MB < 1.0, Creatine Kinase MB Relative Index 3.12, Troponin I < 0.02, ET-Kim-L-Type Natriuretic Peptide 779H, Total Protein 7.7, Albumin 2.6L, Albumin/Globulin Ratio 0.5, Thyroid Stimulating Hormone (TSH) 1.770 10/17/20 22:42: Blood Gas Bicarbonate Standard 33.9H, Arterial Blood pH 7.260L, Arterial Blood Partial Pressure CO2 93.9*H, Arterial Blood Partial Pressure O2 91.6, Arterial Blood Total CO2 44.1H, Arterial Blood HCO3 41.2H, Arterial Blood Base Excess 10.1H, Arterial Blood Oxygen Saturation 96.6 10/18/20 00:21: 10/18/20 00:43: Estimated Mean Plasma Glucose 166H, Hemoglobin A1c 7.4 IMAGING: Chest xray IMPRESSION: Coarse interstitium with minimal scattered bilateral pulmonary infiltrates since 09/20/2020 which may reflect pneumonia. MICROBIOLOGY: Respiratory panel neg ASSESSMENT: is a 75 yr old w a hx of Afib, COPD, O2 dependent respiratory failure, possible HFpEF, HTN, DM2, HTN, DLP and CKD3 who presented w c/o gradually worsening dyspnea and will be admitted for management of acute on chronic hypercapneic BIPAP dependent respiratory failure, acute COPD, fluid overload 2/2 acute HFpEF vs Pulm HTN and ANISA on CKD. PLAN: 1. Acute on chronic hypercapnic BIPAP dependent respiratory failure Likely 2/2 acute COPD and fluid overload Plan: admit to PCU / table top BIPAP / strict NPO for now / f/u repeat ABGs / treat COPD and fluid overload / will ask the day time team to consult Pulm 2. Acute COPD Plan: supplemental O2 / continuous pulse oximetry / f/u ABG ,/ DuoNeb Q6H, Levlbuterol Q1HP, Solumedrol with IV PPI / will give Levofloxacin because has mod to severe exacerbation & is on BIPAP / smoking cessation education / will place a referral for Pulmonary Rehab which has been shown to reduce exacerbation & mortality if patient attends within 4 weeks of episode of acute COPD / the day time team may consider calling Pulm to see if the patient is a candidate to st art Roflumilast to reduce the risk of re-hospitalizations for acute COPD and improve his FEV1 and functional residual capacity / 3. Fluid overload 2/2 acute HFpEF vs Pulm HTN Despite the documented history of diastolic CHF the most recent Echo on Sep 14 didnt mention diastolic dysfunction. It is possible that he has type 3 pulm HTN BNP is elevated & bilateral infiltrates are likely due to congestion rather than PNA Plan: f/u repeat limited Echo to assess PASP / c/w IV lasix 4. ANISA on CKD 3 His baseline Cr is about 1.14 Plan: f/u ulytes for FEurea and renal US / hold Lisinopril & metformin 5. Chronic persistent Afib Plan: c/w apixaban & sotalol 6. IDDM Plan: f/u accuchecks, A1C / hypoglycemia protocol / reduce long acting insulin from 50units QHS to 40 units QHS for now / hold metformin and Trulicity 7. Chronic HTN Plan: hold Lisinopril and start amlodipine 8. Tobacco Abuse Plan: smoking cessation education/ nicotine patch / per 2020 ATS guidelines will start Varenicline for assistance with smoking cessation (despite patients readiness to quit) which can be continued for 12 weeks DVT px n/a bc he is on a NOAC #Elevated d-dimer He is on a NOAC therefore it is unlikely that he has a PE. Acute elevation likely 2/2 inflammation in the setting acute illness Laboratory Data Microbiology Home Medications Scheduled Apixaban (Eliquis) 5 Mg Tablet, 5 MG PO BID Dulaglutide (Trulicity) 0.75 Mg/0.5 Ml Pen.injctr, 0.75 MG SC QWEEK Insulin Glargine,Hum.rec.anlog (Basaglar Kwikpen U-100) 100 Unit/1 Ml Insuln.pen, 50 UNIT SC QHS Ipratropium/Albuterol Sulfate (Iprat-Albut 0.5-3(2.5) mg/3 ml) 3 Ml Ampul.neb, 3 ML INH Q4H Latanoprost (Xalatan) 0.005% 2.5ML Drops, 1 DROP OU QHS Lisinopril (Lisinopril) 5 Mg Tablet, 2.5 MG PO DAILY Metformin HCl (Metformin HCl ER) 500 Mg Tab.er.24h, 1,000 MG PO WM Nicotine (Nicotine Patch) 14 Mg Patch.td24, 14 MG TD DAILY Simvastatin (Simvastatin) 40 Mg Tablet, 40 MG PO DAILY Sotalol Hcl (Sotalol) 120 Mg Tablet, 120 MG PO BID Umeclidinium Hyde (Incruse Ellipta) 62.5 Mcg Blst.w.dev, 1 PUFF INH DAILY Scheduled PRN Albuterol Sulf (Albuterol Sulfate) 2.5 Mg/3 Ml Vial.neb, 2.5 MG INH Q4H PRN for SOB/WHEEZING Ipratropium Hyde (Ipratropium Hyde) 15 Ml Petroleum, 2 SPRAY NA TID PRN for CONGESTION Miscellaneous Medications [Patient Comment] UNABLE TO VERIFY MEDICATIONS WITH PATIENT - MED REC COMPLETED VIA EXTERNAL MED HISTORY, CALLING PHARMACY AND PREVIOUS DISCHARGE PAPERWORK (09/21/2020) Allergies Coded Allergies: bee venom protein (honey bee) (Verified Allergy, Unknown, 09/14/20) A-FIB/CHADSVASC A-FIB History Current/History of A-Fib/PAF?: Yes Current PO Anticoag Therapy: Yes COLIN SHERIFF MD Oct 18, 2020 01:42
[2020-10-18] MEDS ORDERED: LEVEMIR (INSULIN DETEMIR) 1 UNITS/0.01ML SC ONE (05:00)
[2020-10-18 05:56] LABS: HEMATOCRIT 43.7 % (42.0-52.0); HEMOGLOBIN 12.6 g/dl (13.5-17.5); MEAN CORPUSCULAR HEMOGLOBIN 28.3 pg (27.0-33.0); MEAN CORPUSCULAR HGB CONC 28.8 g/dl (32.0-36.5); MEAN CORPUSCULAR VOLUME 98.2 fl (80.0-96.0); PLATELET COUNT, AUTOMATED 240 10^3/uL (150-450); RED BLOOD COUNT 4.45 10^6/uL (4.30-6.10); WHITE BLOOD COUNT 7.5 10^3/uL (4.0-10.0)
[2020-10-18 06:13] LABS: BLOOD UREA NITROGEN 49 MG/DL (7-18); CALCIUM LEVEL 8.9 MG/DL (8.8-10.2); CARBON DIOXIDE LEVEL 42 MEQ/L (21-32); CHLORIDE LEVEL 95 MEQ/L (98-107); CREATININE FOR GFR 1.58 MG/DL (0.70-1.30); FERRITIN 200 NG/ML (26-388); GLUCOSE, FASTING 191 MG/DL (70-100); IRON (FE) 29 UG/DL (65-175); PERCENT SATURATION 9.6 % (19.7-50.0); POTASSIUM SERUM 5.9 MEQ/L (3.5-5.1); SODIUM LEVEL 138 MEQ/L (136-145); TOTAL IRON BINDING CAPACITY 302 UG/DL (250-450); TROPONIN I < 0.02 NG/ML (< 0.10)
[2020-10-18] MEDS: HumaLOG INSULIN (NovoLOG) PER UNIT SC SCH ×5 (06:38→20:44)
[2020-10-18] MEDS ORDERED: PILL CUTTER 1 EACH XX PRN (07:00)
[2020-10-18] MEDS: IPRATROPIUM 0.5MG/ALBUTEROL 2.5MG INH SOL UD 3ML (DUONEB) NEB SCH ×3 (07:30→20:00)
[2020-10-18] MEDS: PANTOPRAZOLE 40MG VIAL (C9113 PER 1) IV SCH (08:31)
[2020-10-18] MEDS: FUROSEMIDE 40MG/4ML VIAL (J1940) IV SCH (08:32)
[2020-10-18 08:37] LABS: ABG BASE EXCESS 12.6 (-2.0-2.0); ABG HCO3 42.4 MEQ/L (22.0-26.0); ABG O2 SATURATION 90.7 % (95.0-99.0); ABG PARTIAL PRESSURE O2 59.7 mmHg (75.0-100.0); ABG STANDARD HCO3 36.2 MEQ/L (22.0-26.0); ABG pH (ARTERIAL) 7.315 UNITS (7.350-7.450)
[2020-10-18] MEDS: SOTALOL HCL 80 MG TAB PO SCH ×2 (08:38→20:43)
[2020-10-18] MEDS: SIMVASTATIN 40 MG TAB PO SCH (08:39)
[2020-10-18] MEDS: APIXABAN 5 MG TAB (ELIQUIS) PO SCH ×2 (08:39→20:41)
[2020-10-18 08:40] LABS: ABG PARTIAL PRESSURE CO2 85.2 mmHg (35.0-45.0)
--- NOTE | 2020-10-18 08:58 | REP ---
INDICATION: taiwo COMPARISON: None TECHNIQUE: Real time regalado scale ultrasound examination using curved array transducer. FINDINGS: Bilateral kidneys are normal in reniform shape with increased central sinus fat and cortical thinning consistent with age-related renal disease. There is no evidence for hydronephrosis, nephrolithiasis, or mass lesion. Right kidney measures 10.1 x 4.7 x 5.4 cm and includes 11 mm cortical midpole simple cyst. Left kidney measures 10.4 x 4.8 x 6.2 cm. Bladder is unremarkable and bilateral ureteral jets are identified. IMPRESSION: Chronic medical renal disease. Small simple right renal cyst. No hydronephrosis. <Electronically signed by Ramos Deleon > 10/18/20 [id number]
[2020-10-18] MEDS ORDERED: NICOTINE 14 MG/24 HR TRANSDERMAL TD SCH (09:00)
[2020-10-18 11:36] LABS: FOLATE 5.7 NG/ML (>5.4); VITAMIN B12 LEVEL 518 PG/ML (247-911)
[2020-10-18] MEDS: NICOTINE 14 MG/24 HR TRANSDERMAL TD SCH (11:45)
[2020-10-18] MEDS: VARENICLINE 0.5 MG TABLET PO SCH ×2 (11:45→20:41)
[2020-10-18] MEDS ORDERED: LevoFLOXacin IV 750 MG in IV 1 EA IV SCH (12:00)
[2020-10-18 13:08] LABS: ABG BASE EXCESS 9.3 (-2.0-2.0); ABG HCO3 36.1 MEQ/L (22.0-26.0); ABG PARTIAL PRESSURE O2 64.2 mmHg (75.0-100.0); ABG TOTAL CO2 37.9 MEQ/L (23.0-31.0); ABG pH (ARTERIAL) 7.404 UNITS (7.350-7.450)
[2020-10-18 15:30] VITALS: BP 126/63
[2020-10-18 16:49] LABS: ABG BASE EXCESS 7.8 (-2.0-2.0); ABG HCO3 34.8 MEQ/L (22.0-26.0); ABG O2 SATURATION 93.2 % (95.0-99.0); ABG PARTIAL PRESSURE O2 66.6 mmHg (75.0-100.0); ABG STANDARD HCO3 31.5 MEQ/L (22.0-26.0); ABG TOTAL CO2 36.7 MEQ/L (23.0-31.0); ABG pH (ARTERIAL) 7.376 UNITS (7.350-7.450)
[2020-10-18 16:53] LABS: ABG PARTIAL PRESSURE CO2 60.8 mmHg (35.0-45.0)
[2020-10-18 17:44] VITALS: O2SAT 94
[2020-10-18 20:00] VITALS: BP 138/99
--- NOTE | 2020-10-18 20:38 | ECGEPIP ---
[facility] - ED Test Date: 2020-10-17 Pat Name: MASHA CANO Department: Room: Gender: Male Binding Folder Machine: INES : 1945 Requested By: ROBBIN Salazar Order Number: [id number] Reading MD: Vasquez Deal Measurements Intervals [place] Rate: 92 P: 88 NC: 195 QRS: 90 QRSD: 77 T: 86 QT: 353 QTc: 438 Interpretive Statements SINUS RHYTHM POSSIBLE RIGHT VENTRICULAR CONDUCTION DELAY NONSPECIFIC T WAVE ABNORMALITY(S) RHYTHM/RATE CHANGE COMPARED TO 09/14/20 Electronically Signed on 10-18-2020 20:38:22 EST by Vasquez Deal
[2020-10-18] MEDS: LATANOPROST 0.005% OPHTH SOLN 2.5 ML OU SCH (20:42)
[2020-10-18] MEDS: LEVEMIR (INSULIN DETEMIR) 1 UNITS/0.01ML SC SCH (20:43)
[2020-10-18 21:00] VITALS: BP 118/59
[2020-10-18 22:00] VITALS: BP 125/60
[2020-10-18 23:00] VITALS: BP 112/56
[2020-10-19] VITALS (11 sets, daily range): BP systolic 119–159; BP diastolic 60–97; O2SAT 90–93
[2020-10-19] MEDS: methylPREDNISolone 125MG 2ML VIAL IV SCH ×2 (00:20→09:23)
[2020-10-19] MEDS: IPRATROPIUM 0.5MG/ALBUTEROL 2.5MG INH SOL UD 3ML (DUONEB) NEB SCH ×4 (01:47→20:00)
[2020-10-19 06:08] LABS: HEMOGLOBIN 11.8 g/dl (13.5-17.5); MEAN CORPUSCULAR HEMOGLOBIN 28.2 pg (27.0-33.0); MEAN CORPUSCULAR HGB CONC 30.3 g/dl (32.0-36.5); MEAN CORPUSCULAR VOLUME 93.3 fl (80.0-96.0); PLATELET COUNT, AUTOMATED 243 10^3/uL (150-450); RED BLOOD COUNT 4.18 10^6/uL (4.30-6.10); WHITE BLOOD COUNT 11.7 10^3/uL (4.0-10.0)
[2020-10-19 06:29] LABS: CALCIUM LEVEL 8.6 MG/DL (8.8-10.2); CREATININE FOR GFR 1.83 MG/DL (0.70-1.30); GLOMERULAR FILTRATION RATE 38.8 (>42)
[2020-10-19] MEDS: HumaLOG INSULIN (NovoLOG) PER UNIT SC SCH ×4 (07:50→21:00)
[2020-10-19] MEDS: NICOTINE 14 MG/24 HR TRANSDERMAL TD SCH (09:23)
[2020-10-19] MEDS: FUROSEMIDE 40MG/4ML VIAL (J1940) IV SCH (09:24)
[2020-10-19] MEDS: VARENICLINE 0.5 MG TABLET PO SCH ×2 (09:24→21:49)
[2020-10-19] MEDS: APIXABAN 5 MG TAB (ELIQUIS) PO SCH ×2 (09:24→21:48)
[2020-10-19] MEDS: SOTALOL HCL 80 MG TAB PO SCH ×2 (09:25→21:49)
[2020-10-19] MEDS: SIMVASTATIN 40 MG TAB PO SCH (09:36)
[2020-10-19] MEDS: PANTOPRAZOLE 40MG VIAL (C9113 PER 1) IV SCH (09:36)
--- NOTE | 2020-10-19 09:53 | IPN ---
PULMONARY PROGRESS NOTE DATE: 10/19/2020 SUBJECTIVE: Mr. Becker was seen and examined this morning. Pulmonary has been consulted for management of his bilevel. On bilevel, his blood gas yesterday, his pCO2 came down to 59, overnight the patient reportedly did not tolerate his bilevel. It was noted he became hypoxic while on it and had been switched over to nasal cannula. Reportedly, he had only worn his bilevel for approximately 3 hours. His pCO2 was 60.8. The patient is mentating fine. He currently has no complaints. He is currently on 4 liters of nasal cannula. OBJECTIVE: VITAL SIGNS: Temperature 97.4, pulse 78, respiratory rate 20, blood pressure 159/74, pulse oximetry 92% on 4 liters nasal cannula. GENERAL: The patient is awake, alert and oriented, he does not appear in any acute distress. He is sitting up comfortably on the edge of the bed with nasal cannula in place. HEENT: Atraumatic, normocephalic. Eyes are nonicteric. Trachea is midline. Mucous membranes are pink and moist. CARDIOVASCULAR: Normal S1 and S2, regular rate and rhythm. No clicks, rubs or murmurs auscultated. PULMONARY: Patient has clear breath sounds bilaterally, with respiratory effort, somewhat diminished at the bases. No wheezes, rhonchi or rales noted. ABDOMEN: Soft, nondistended and nontender. Normoactive bowel sounds throughout. EXTREMITIES: 2+ pitting edema of bilateral lower extremities. Full and equal pulses of bilateral upper and lower extremities. NEUROLOGIC: No focal neurological deficits. PSYCHIATRIC: Mood and affect appear appropriate. LABORATORY DATA: Chemistries: Hematology: White blood cells 11.7, hemoglobin 11.8, hematocrit 39.0, platelet count 243,000. Chemistries showed a sodium of 135, potassium 5.0, chloride 93, CO2 39, BUN 61, creatinine 1.83. . Calcium 8.6. ABG: pH 7.37, pCO2 60.8, pO2 66.6. ASSESSMENT AND PLAN: Mr. Becker is a 75-year-old male with a history of COPD on 2 liters of nasal cannula chronically, heart failure with preserved ejection fraction, hypertension, diabetes mellitus Type 2, CKD Stage III, and a history of chronic atrial fibrillation on anticoagulation who presented with worsening shortness of breath and found to be in hypercarbic hypoxic respiratory failure and placed on bilevel. 1. Acute on chronic hypercarbic hypoxic respiratory failure. The patient had presented with this likely secondary to COPD exacerbation. He has been placed on bilevel. He did show improvements overnight. The patient did not tolerate his bilevel, additionally he was noted to become hypoxic. He was switched to nasal cannula with 4 liters of nasal cannula. He seems to be doing well. At this point, the patient seems to be close this baseline. If he is not wearing his bilevel at this point in time, pulmonary service will sign off on this patient. Further recommendations in the setting of the patient's acute COPD, agree with current treatment with oxygen, DuoNeb, Solu-Medrol and antibiotics. 2. Disposition: Patient overall has shown improvement. At this point, as the patient is not currently on bilevel, will be signing off on his care. If any further assistance is needed would be happy to provide. RITA
--- NOTE | 2020-10-19 16:43 | IPNPDOC ---
Text Note Date of Service The patient was seen on 10/19/20. NOTE Subjective: Patient seen and examined at bedside. No acute overnight events reported. No new medical complaints this morning. States his breathing feels much better. Objective: General:NAD, lying comfortably in bed HEENT: NC/AT, EOMI Lungs; CTA B/L, diminished breath sounds Heart: +S1S2, RRR Abd: soft, NT, +BS Ext: no edema A/P: 75 yr old male w a hx of Afib, COPD, O2 dependent respiratory failure, possible HFpEF, HTN, DM2, HTN, DLP and CKD3 who presented w c/o gradually worsening dyspnea and will be admitted for management of acute on chronic hypercapneic BIPAP dependent respiratory failure, acute COPD, fluid overload 2/2 acute HFpEF vs Pulm HTN and ANISA on CKD. #Acute on chronic hypercapnic BIPAP dependent respiratory failure Likely 2/2 acute COPD and fluid overload - off bipap - pulm assistance appreciated #COPD exacerbation - continue with respiratory treatments - transition to oral steroid - antibiotics - supplemental O2 #Fluid overload 2/2 acute HFpEF vs Pulm HTN Despite the documented history of diastolic CHF the most recent Echo on Sep 14 didnt mention diastolic dysfunction. It is possible that he has type 3 pulm HTN BNP is elevated & bilateral infiltrates are likely due to congestion rather than PNA Plan: f/u repeat limited Echo to assess PASP / c/w IV lasix #ANISA on CKD 3 His baseline Cr is about 1.14 Plan: f/u ulytes for FEurea and renal US / hold Lisinopril & metformin #Chronic persistent Afib Plan: c/w apixaban & sotalol #IDDM Plan: f/u accuchecks, A1C / hypoglycemia protocol / reduce long acting insulin from 50units QHS to 40 units QHS for now / hold metformin and Trulicity #Chronic HTN Plan: hold Lisinopril and start amlodipine #Tobacco Abuse Plan: smoking cessation education/ nicotine patch / per 2020 ATS guidelines will start Varenicline for assistance with smoking cessation (despite patients readiness to quit) which can be continued for 12 weeks #DVT prophylaxis - as above on a NOAC VS,Fishbone, I+O VS, Fishbone, I+O Laboratory Tests 10/19/20 05:40 Vital Signs Date Time Temp Pulse Resp B/P (MAP) Pulse Ox O2 Delivery O2 Flow Rate FiO2 10/19/20 15:00 2.0 10/19/20 14:27 97.8 80 19 134/74 (94) 87 Nasal Cannula 10/17/20 23:32 50 I&O- Last 24 Hours up to 6 AM 10/19/20 05:59 Intake Total 770 ml Output Total 1525 ml Balance -755 ml LEXII VENTURA MD Oct 19, 2020 16:43
[2020-10-19] MEDS ORDERED: methylPREDNISolone 125MG 2ML VIAL IV SCH (21:00)
[2020-10-19] MEDS ORDERED: HumaLOG INSULIN (NovoLOG) PER UNIT SC ONE (21:30)
[2020-10-19] MEDS: LEVEMIR (INSULIN DETEMIR) 1 UNITS/0.01ML SC SCH (21:50)
[2020-10-19] MEDS: LATANOPROST 0.005% OPHTH SOLN 2.5 ML OU SCH (21:50)
[2020-10-20] MEDS: HumaLOG INSULIN (NovoLOG) PER UNIT SC SCH ×4 (00:09→17:20)
[2020-10-20] MEDS: IPRATROPIUM 0.5MG/ALBUTEROL 2.5MG INH SOL UD 3ML (DUONEB) NEB SCH ×4 (02:19→19:58)
[2020-10-20] MEDS: LevoFLOXacin 750 MG TABLET PO SCH (05:56)
[2020-10-20 06:00] VITALS: BP 139/75
[2020-10-20 07:56] LABS: HEMATOCRIT 39.1 % (42.0-52.0); HEMOGLOBIN 11.6 g/dl (13.5-17.5); MEAN CORPUSCULAR HEMOGLOBIN 27.8 pg (27.0-33.0); MEAN CORPUSCULAR HGB CONC 29.7 g/dl (32.0-36.5); MEAN CORPUSCULAR VOLUME 93.8 fl (80.0-96.0); PLATELET COUNT, AUTOMATED 278 10^3/uL (150-450); RED BLOOD COUNT 4.17 10^6/uL (4.30-6.10); WHITE BLOOD COUNT 12.8 10^3/uL (4.0-10.0)
[2020-10-20 08:21] LABS: CALCIUM LEVEL 8.8 MG/DL (8.8-10.2); CREATININE FOR GFR 1.51 MG/DL (0.70-1.30); GLOMERULAR FILTRATION RATE 48.5 (>42)
[2020-10-20] MEDS: NICOTINE 14 MG/24 HR TRANSDERMAL TD SCH (09:03)
[2020-10-20] MEDS: SIMVASTATIN 40 MG TAB PO SCH (09:04)
[2020-10-20] MEDS: VARENICLINE 0.5 MG TABLET PO SCH ×2 (09:04→21:42)
[2020-10-20] MEDS: PANTOPRAZOLE 40MG TAB (PROTONIX) PO SCH (09:04)
[2020-10-20] MEDS: FUROSEMIDE 40MG/4ML VIAL (J1940) IV SCH ×2 (09:04→17:20)
[2020-10-20] MEDS: APIXABAN 5 MG TAB (ELIQUIS) PO SCH ×2 (09:04→21:42)
[2020-10-20] MEDS: predniSONE 50 MG TAB PO SCH (09:05)
--- NOTE | 2020-10-20 09:35 | IPNPDOC ---
Text Note Date of Service The patient was seen on 10/20/20. NOTE Subjective: Patient seen and examined at bedside. No acute overnight events reported. No new medical complaints this morning. States his breathing feels much better, but still not at baseline. Objective: General:NAD, sitting comfortably at edge of bed HEENT: NC/AT, EOMI Lungs; CTA B/L, diminished breath sounds, mild crackles b/ bases Heart: +S1S2, RRR Abd: soft, NT, +BS Ext: no edema A/P: 75 yr old male w a hx of Afib, COPD, O2 dependent respiratory failure, possible HFpEF, HTN, DM2, HTN, DLP and CKD3 who presented w c/o gradually worsening dyspnea and will be admitted for management of acute on chronic hypercapneic BIPAP dependent respiratory failure, acute COPD, fluid overload 2/2 acute HFpEF vs Pulm HTN and ANISA on CKD. #Acute on chronic hypercapnic BIPAP dependent respiratory failure - no wheezes - appears now to be secondary to fluid overload - off bipap - pulm assistance appreciated - increase lasix to 40 BID dosing IV #COPD exacerbation - continue with respiratory treatments - transitioned to oral steroid - antibiotics PO - supplemental O2 - baseline 2L at home #Fluid overload 2/2 acute HFpEF vs Pulm HTN - increase lasix to BID dosing - fluid restriction #ANISA on CKD 3 - improving - His baseline Cr is about 1.14 - home lisinopril on hold #Chronic persistent Afib - c/w apixaban & sotalol #IDDM - continue with ISS #Chronic HTN - home lisinopril on hold, 2.5 norvasc started on admission #Tobacco Abuse #DVT prophylaxis - as above on a NOAC Dispo: pending clinical improvement, increase diuretics, PT/OT; anticipating discharge in 48-72 hours VS,Fishbone, I+O VS, Fishbone, I+O Laboratory Tests 10/20/20 07:38 Vital Signs Date Time Temp Pulse Resp B/P (MAP) Pulse Ox O2 Delivery O2 Flow Rate FiO2 10/20/20 09:04 66 139/75 10/20/20 06:00 97.8 17 93 Nasal Cannula 3.0 10/17/20 23:32 50 I&O- Last 24 Hours up to 6 AM 10/20/20 06:00 Intake Total 1255 ml Output Total 875 ml Balance 380 ml LEXII VENTURA MD Oct 20, 2020 09:35
[2020-10-20] MEDS: SOTALOL HCL 80 MG TAB PO SCH ×2 (09:51→21:45)
--- NOTE | 2020-10-20 12:46 | ECHO ---
DATE OF PROCEDURE: 10/18/2020 Age: 75 Gender: Male PATIENT LOCATION: ED Bed 6. REFERRING PHYSICIAN: Jacinta Pinon MD REASON FOR STUDY: Shortness of breath, pulmonary hypertension. 2D MEASUREMENTS: Please refer to previously done echocardiogram on 09/14/2020 for these measurements. DOPPLER MEASUREMENT Peak velocity across the tricuspid valve 2.5 m/s 2D COMMENTS: 1. The left ventricle size appeared to be normal, as well as left ventricular systolic function. The estimated left ventricular systolic ejection fraction is 60% to 65%. 2. The left atrium appeared to be mildly enlarged. The right atrium and the right ventricle appeared to be normal in size. 3. The atrial septum appeared to be normal without evidence of defect or shunt. 4. Normal aortic root. 5. A trace pericardial effusion was noted in limited views, no evidence of cardiac tamponade. 6. The aortic valve, mitral valve, and tricuspid valve appeared to be normal. 7. The inferior vena cava was mildly enlarged, central venous pressure might be elevated. DOPPLER: Only [id number] tricuspid regurgitation detected. The calculated pulmonary artery systolic pressure varies between 30 to 40 mmHg. IMPRESSION: 1. Normal global left ventricular systolic function. 2. Fgynj-ma-srua tricuspid regurgitation with probably mild pulmonary hypertension. 3. There are some features of elevated central venous pressure, the inferior vena cava was mildly enlarged. 4. This was compared with prior echocardiogram on 09/14/2020 and at that time, the patient was tachycardic and now heart rate is about 65 beats per minute. Left ventricular systolic function also at that time appeared to be lower. MTDD
[2020-10-20 14:00] VITALS: BP 136/74
[2020-10-20] MEDS: LATANOPROST 0.005% OPHTH SOLN 2.5 ML OU SCH (21:41)
[2020-10-20] MEDS: LEVEMIR (INSULIN DETEMIR) 1 UNITS/0.01ML SC SCH (21:42)
[2020-10-20 22:00] VITALS: BP 155/70; O2SAT 93
[2020-10-21] MEDS: IPRATROPIUM 0.5MG/ALBUTEROL 2.5MG INH SOL UD 3ML (DUONEB) NEB SCH ×4 (01:08→20:09)
[2020-10-21 06:00] VITALS: BP 120/55
[2020-10-21] MEDS: HumaLOG INSULIN (NovoLOG) PER UNIT SC SCH ×4 (08:15→21:53)
[2020-10-21] MEDS: APIXABAN 5 MG TAB (ELIQUIS) PO SCH ×2 (08:16→21:53)
[2020-10-21] MEDS: SIMVASTATIN 40 MG TAB PO SCH (08:16)
[2020-10-21] MEDS: PANTOPRAZOLE 40MG TAB (PROTONIX) PO SCH (08:16)
[2020-10-21] MEDS: predniSONE 50 MG TAB PO SCH (08:16)
[2020-10-21] MEDS: VARENICLINE 0.5 MG TABLET PO SCH ×2 (08:16→21:57)
[2020-10-21] MEDS: NICOTINE 14 MG/24 HR TRANSDERMAL TD SCH (08:16)
[2020-10-21] MEDS: SOTALOL HCL 80 MG TAB PO SCH ×2 (08:16→21:57)
[2020-10-21] MEDS: FUROSEMIDE 40MG/4ML VIAL (J1940) IV SCH ×2 (08:17→17:48)
[2020-10-21 08:39] LABS: HEMOGLOBIN 12.1 g/dl (13.5-17.5); MEAN CORPUSCULAR HEMOGLOBIN 27.8 pg (27.0-33.0); MEAN CORPUSCULAR HGB CONC 29.5 g/dl (32.0-36.5); MEAN CORPUSCULAR VOLUME 94.3 fl (80.0-96.0); PLATELET COUNT, AUTOMATED 271 10^3/uL (150-450); RED BLOOD COUNT 4.35 10^6/uL (4.30-6.10); WHITE BLOOD COUNT 11.3 10^3/uL (4.0-10.0)
[2020-10-21 09:09] LABS: CALCIUM LEVEL 8.4 MG/DL (8.8-10.2); CREATININE FOR GFR 1.61 MG/DL (0.70-1.30); POTASSIUM SERUM 4.2 MEQ/L (3.5-5.1)
--- NOTE | 2020-10-21 11:52 | IPNPDOC ---
Text Note Date of Service The patient was seen on 10/21/20. NOTE Subjective: Patient seen and examined at bedside. No acute overnight events reported. No new medical complaints this morning. States his breathing feels much better. He states he does not use CPAP or BiPAP at home. He uses continuous oxygen at 2L. Objective: General:NAD, sitting comfortably at edge of bed HEENT: NC/AT, EOMI Lungs; CTA B/L, diminished breath sounds Heart: +S1S2, RRR Abd: soft, NT, +BS Ext: no edema A/P: 75 yr old male w a hx of Afib, COPD, O2 dependent respiratory failure, possible HFpEF, HTN, DM2, HTN, DLP and CKD3 who presented w c/o gradually worsening dyspnea and admitted for management of acute on chronic hypoxic hypercapnic respiratory failure, acute COPD, fluid overload 2/2 acute HFpEF vs Pulm HTN and ANISA on CKD. #Acute on chronic hypercapnic hypoxic respiratory failure - much improved - still requiring NIPPV at night - continue to wean O2 - pulm assistance appreciated #COPD exacerbation - continue with respiratory treatments - transitioned to oral steroid - antibiotics PO - supplemental O2 - baseline 2L at home - IS, acapella, mucolytics #Fluid overload 2/2 acute HFpEF vs Pulm HTN - lasix 40 BID dosing IV - fluid restriction #ANISA on CKD 3 - His baseline Cr is about 1.14 - home lisinopril on hold #Chronic persistent Afib - c/w apixaban & sotalol #IDDM - continue with ISS #Chronic HTN - home lisinopril on hold, 2.5 norvasc started on admission #Tobacco Abuse #DVT prophylaxis - as above on a NOAC Dispo: pending clinical improvement VS,Bebetobone, I+O VS, Fishbone, I+O Laboratory Tests 10/21/20 08:34 Vital Signs Date Time Temp Pulse Resp B/P (MAP) Pulse Ox O2 Delivery O2 Flow Rate FiO2 10/21/20 08:16 80 136/60 10/21/20 06:00 98.1 19 97 Nasal Cannula 3.0 10/17/20 23:32 50 I&O- Last 24 Hours up to 6 AM 10/21/20 06:00 Intake Total 1120 ml Output Total 1200 ml Balance -80 ml LEXII VENTURA MD Oct 21, 2020 11:52
--- NOTE | 2020-10-21 12:23 | REP ---
INDICATION: sob. COMPARISON: 10/17/2020 the latest prior TECHNIQUE: PA and lateral views FINDINGS: The superior mediastinal structures are midline. The cardiac silhouette is unremarkable in size, shape, and position. There is a dual chamber bipolar pacemaker device in place status quo. The diaphragmatic surfaces of the lungs are regular. The increased interstitial markings seen on the prior examination have improved. No new abnormal patchy opacities or pleural effusions have developed.. The imaged osseous structures are intact. IMPRESSION: Improvement <Electronically signed by Kvng Graham > 10/21/20 [id number]
[2020-10-21 14:00] VITALS: BP 122/60
[2020-10-21 21:00] VITALS: O2SAT 97
[2020-10-21] MEDS: LEVEMIR (INSULIN DETEMIR) 1 UNITS/0.01ML SC SCH (21:53)
[2020-10-21] MEDS: LATANOPROST 0.005% OPHTH SOLN 2.5 ML OU SCH (21:53)
[2020-10-21 22:00] VITALS: BP 130/62
[2020-10-22] MEDS: IPRATROPIUM 0.5MG/ALBUTEROL 2.5MG INH SOL UD 3ML (DUONEB) NEB SCH ×4 (02:00→19:46)
[2020-10-22] MEDS: LevoFLOXacin 750 MG TABLET PO SCH (05:00)
[2020-10-22 06:00] VITALS: BP 114/78
[2020-10-22 06:22] LABS: HEMATOCRIT 41.4 % (42.0-52.0); HEMOGLOBIN 12.5 g/dl (13.5-17.5); MEAN CORPUSCULAR HEMOGLOBIN 28.2 pg (27.0-33.0); MEAN CORPUSCULAR HGB CONC 30.2 g/dl (32.0-36.5); MEAN CORPUSCULAR VOLUME 93.5 fl (80.0-96.0); PLATELET COUNT, AUTOMATED 283 10^3/uL (150-450); RED BLOOD COUNT 4.43 10^6/uL (4.30-6.10); WHITE BLOOD COUNT 10.8 10^3/uL (4.0-10.0)
[2020-10-22 06:52] LABS: CREATININE FOR GFR 1.38 MG/DL (0.70-1.30); GLOMERULAR FILTRATION RATE 53.8 (>42); POTASSIUM SERUM 4.8 MEQ/L (3.5-5.1)
[2020-10-22] MEDS: HumaLOG INSULIN (NovoLOG) PER UNIT SC SCH ×4 (07:30→21:37)
[2020-10-22] MEDS: predniSONE 50 MG TAB PO SCH (08:20)
[2020-10-22] MEDS: NICOTINE 14 MG/24 HR TRANSDERMAL TD SCH (08:20)
[2020-10-22] MEDS: PANTOPRAZOLE 40MG TAB (PROTONIX) PO SCH (08:20)
[2020-10-22] MEDS: APIXABAN 5 MG TAB (ELIQUIS) PO SCH ×2 (08:21→21:36)
[2020-10-22] MEDS: FUROSEMIDE 40MG/4ML VIAL (J1940) IV SCH ×2 (08:21→17:59)
[2020-10-22] MEDS: SOTALOL HCL 80 MG TAB PO SCH ×2 (08:21→21:39)
[2020-10-22] MEDS: SIMVASTATIN 40 MG TAB PO SCH (08:21)
[2020-10-22] MEDS: VARENICLINE 0.5 MG TABLET PO SCH ×2 (08:21→21:40)
--- NOTE | 2020-10-22 11:11 | IPN ---
PROGRESS NOTE DATE: 10/22/2020 Phillip is seen in [address] [place] [address], admitted for respiratory failure. Had been seen by pulmonary earlier in his hospitalization. Nursing staff notes that his oxygenation falls overnight. He is on 2 liters during the day, but has to be titrated up to 4 liters at night and then he is concerned about hypercapnia. He feels short of breath this morning, but not much worse than his baseline. PHYSICAL EXAMINATION: 122/80, pulse 70, 94% oxygen saturation on 3 liters. GENERAL: Alert, conversant. No distress. LUNGS: Decreased breath sounds, but clear. HEART: Regular rhythm. ABDOMEN: Soft, nontender. Trace peripheral edema. LABORATORY DATA: White count 10.8, hemoglobin 12.5, platelets 282. Sodium 140, potassium 4.8, BUN 49, creatinine 1.3, glucose 104. BNP yesterday was 1649. IMPRESSION/PLAN: 1. Hypercapnic respiratory failure with hypoxia. I am going to ask pulmonary to see him again. He is requiring increased oxygenation at night. Wonder if he needs some kind of ventilatory support at night. 2. Chronic obstructive pulmonary disease (COPD). Stable on his current regimen. He is on oral steroids, oral antibiotics and bronchodilators. 3. Congestive heart failure. Continues on his fluid restriction and intravenous Lasix. His echocardiogram showed an ejection fraction of 60-65%, mild pulmonary hypertension. 4. Atrial fibrillation. Rate is controlled. He is on sotalol and Eliquis. 5. Diabetes. Sliding scale insulin with coverage. 6. Hypertension. His lisinopril was held on admission. Started on 2.5 mg of amlodipine a day. Blood pressure remains well-controlled. 7. Acute kidney injury on chronic kidney disease. Renal function slowly improving.
[2020-10-22 14:00] VITALS: BP 115/57
[2020-10-22 21:00] VITALS: O2SAT 92
[2020-10-22] MEDS: LATANOPROST 0.005% OPHTH SOLN 2.5 ML OU SCH (21:36)
[2020-10-22] MEDS: LEVEMIR (INSULIN DETEMIR) 1 UNITS/0.01ML SC SCH (21:38)
[2020-10-22 22:00] VITALS: BP 134/62
[2020-10-23] MEDS: IPRATROPIUM 0.5MG/ALBUTEROL 2.5MG INH SOL UD 3ML (DUONEB) NEB SCH ×2 (02:50→07:34)
[2020-10-23 06:51] LABS: HEMATOCRIT 41.8 % (42.0-52.0); HEMOGLOBIN 12.9 g/dl (13.5-17.5); MEAN CORPUSCULAR HEMOGLOBIN 28.5 pg (27.0-33.0); MEAN CORPUSCULAR HGB CONC 30.9 g/dl (32.0-36.5); MEAN CORPUSCULAR VOLUME 92.5 fl (80.0-96.0); PLATELET COUNT, AUTOMATED 287 10^3/uL (150-450); RED BLOOD COUNT 4.52 10^6/uL (4.30-6.10); WHITE BLOOD COUNT 11.7 10^3/uL (4.0-10.0)
[2020-10-23 07:10] LABS: CALCIUM LEVEL 9.1 MG/DL (8.8-10.2); CREATININE FOR GFR 1.54 MG/DL (0.70-1.30); GLOMERULAR FILTRATION RATE 47.4 (>42); POTASSIUM SERUM 4.4 MEQ/L (3.5-5.1)
[2020-10-23] MEDS: NICOTINE 14 MG/24 HR TRANSDERMAL TD SCH (09:00)
[2020-10-23] MEDS ORDERED: AMLO25TA PO (09:48)
[2020-10-23] MEDS ORDERED: LEVO750T14 PO (09:48)
[2020-10-23] MEDS ORDERED: PRED20TA PO (09:48)
[2020-10-23] MEDS: HumaLOG INSULIN (NovoLOG) PER UNIT SC SCH (10:09)
[2020-10-23] MEDS: SIMVASTATIN 40 MG TAB PO SCH (10:10)
[2020-10-23] MEDS: APIXABAN 5 MG TAB (ELIQUIS) PO SCH (10:10)
[2020-10-23] MEDS: PANTOPRAZOLE 40MG TAB (PROTONIX) PO SCH (10:10)
[2020-10-23] MEDS: predniSONE 50 MG TAB PO SCH (10:10)
[2020-10-23] MEDS: VARENICLINE 0.5 MG TABLET PO SCH (10:10)
[2020-10-23 10:11] VITALS: BP 126/65
[2020-10-23] MEDS: SOTALOL HCL 80 MG TAB PO SCH (10:11)
--- NOTE | 2020-10-23 10:29 | DSES ---
DISCHARGE SUMMARY DATE OF ADMISSION: 10/18/2020 DATE OF DISCHARGE: 10/23/2020 PRINCIPAL DIAGNOSIS: Hypercapnic respiratory failure with hypoxia. SECONDARY DIAGNOSES: 1. Chronic obstructive pulmonary disease with exacerbation. 2. Congestive heart failure with preserved ejection fraction. 3. Atrial fibrillation. 4. Type-2 diabetes. 5. Hypertensive heart disease. 6. Acute kidney injury superimposed on chronic kidney disease. PRIMARY CARE PROVIDER: Marlys Lima MD [employer] OPERATOR HELPER: Pulmonary service. HISTORY: The patient was admitted with shortness of breath. He has chronic hypercapnic respiratory failure on chronic supplemental oxygen. He presented with [id number] respiratory failure, rapid atrial fibrillation, and congestive heart failure. O2 saturations were 84% on admission. Fluid and solid intake had been high in the few days prior to being admitted. HOSPITAL COURSE: He was admitted to a medical bed. He had an echocardiogram performed that showed an ejection fraction of 60-65%, mild pulmonary hypertension, otherwise unremarkable. He responded well to diuresis. His renal failure improved with holding his LAM inhibitor. His respiratory failure improved with steroids, antibiotics and nebulized bronchodilator. Pulmonary was consulted about nocturnal hypoxia and they recommend workup for suspected sleep apnea after discharge. PHYSICAL EXAM: Today his vital signs are stable. O2 saturation 96% on 2 liters. He feels well and wants to go home. There is no JVD. Lungs have decreased breath sounds. Heart regular rate and rhythm, rate around 60. Abdomen is soft and nontender without masses. No peripheral edema. LABS: Today white count 11.7 on steroids, hemoglobin 12.9, platelets 287. Sodium 140, potassium 4, BUN 52, creatinine 1.5, glucose 170. Blood sugars on steroids were elevated in the 300 range. Respiratory panel was negative for COVID. DISPOSITION: He is discharged home in stable condition. Continue oxygen 2 liters nasal cannula. Outpatient sleep study advised with pulmonary referral. Activity as tolerated. O2 at 2 liters nasal cannula, a 2 gm sod diet with 1800 mL per day. Fluid restriction advised. DISCHARGE MEDICATIONS: Medications will continue to be: - Albuterol by nebulizer as needed - Eliquis 5 mg twice a day - Trulicity 0.75 mg subcutaneously weekly - Basaglar 50 units at bedtime - Ipratropium nasal spray as needed - DuoNeb every 4 hours as needed - Metformin 1000 mg tablet daily - Simvastatin 40 mg daily - Sotalol 120 mg twice a day - Incruse Ellipta one puff daily - Lisinopril has been stopped - He has been started on Amlodipine 2.5 mg daily - He will be on Prednisone 20 mg twice a day for five days - Levaquin 750 mg every other day for three more doses
== END 2020-10-23 11:46 | disposition home or self-care (01) | DRG 291 ==
LOC: M ED 22:16 → M ED INP 10-18 00:25 → M PCU 10-18 15:07 → M MSPAV 10-19 14:25
PROVIDERS: ADMIT Internal Medicine; ATTEND Family Medicine
DX: I13.0 Hypertensive heart and chronic kidney disease with heart failure and stage 1 through stage 4 chronic kidney disease, or unspecified chronic kidney disease (principal); J96.22 Acute and chronic respiratory failure with hypercapnia; I50.33 Acute on chronic diastolic (congestive) heart failure; J44.1 Chronic obstructive pulmonary disease with (acute) exacerbation; N17.9 Acute kidney failure, unspecified; I48.20 Chronic atrial fibrillation, unspecified; I27.20 Pulmonary hypertension, unspecified; N18.30 Chronic kidney disease, stage 3 unspecified; E11.9 Type 2 diabetes mellitus without complications; Z79.899 Other long term (current) drug therapy; Z95.0 Presence of cardiac pacemaker; Z99.81 Dependence on supplemental oxygen; F17.200 Nicotine dependence, unspecified, uncomplicated; Z79.4 Long term (current) use of insulin; Z91.030 Bee allergy status

== ENCOUNTER 2021-01-12 11:58 | Emergency (ER) | payer MEDICARE ==
[~2021-01-12] VITALS: Ht 170.2 cm; Wt 87.3 kg
[~2021-01-12 11:58] MED LIST changes: +AMLO25TA PO; +INCR1INH INH; +IPRA0.00 INH; +LEVO750T14 PO; +NICO14DI24 TD; +PRED20TA PO
[2021-01-12] MEDS ORDERED: FURO20TA2 PO (12:20)
[2021-01-12] MEDS ORDERED: TREL1AER INH (12:20)
[2021-01-12] MEDS ORDERED: methylPREDNISolone 125MG 2ML VIAL IV ONE (12:45)
[2021-01-12] MEDS ORDERED: ASPIRIN 81 MG CHEW TABLET PO ONE (12:45)
[2021-01-12] MEDS ORDERED: NS 1,000 ML IV ONE (12:45)
[2021-01-12] MEDS: COMBIVENT RESPIMAT 100-20MCG INHALER 4GM INH SCH ×3 (13:02→14:04)
[2021-01-12 13:26] LABS: ABG BASE EXCESS 7.2 (-2.0-2.0); ABG HCO3 34.6 MEQ/L (22.0-26.0); ABG O2 SATURATION 93.8 % (95.0-99.0); ABG PARTIAL PRESSURE O2 75.8 mmHg (75.0-100.0); ABG STANDARD HCO3 30.9 MEQ/L (22.0-26.0); ABG TOTAL CO2 36.6 MEQ/L (23.0-31.0); ABG pH (ARTERIAL) 7.355 UNITS (7.350-7.450)
[2021-01-12 13:31] LABS: ABG PARTIAL PRESSURE CO2 63.4 mmHg (35.0-45.0)
[2021-01-12 13:34] LABS: BASO # 0.1 10^3/uL (0.0-0.2); BASO % 0.8 % (0.0-1.0); EOS # 0.7 10^3/uL (0.0-0.5); EOS % 8.5 % (0.0-3.0); HEMATOCRIT 41.9 % (42.0-52.0); HEMOGLOBIN 12.8 g/dl (13.5-17.5); LYMPH # 1.3 10^3/uL (1.5-5.0); LYMPH % 14.8 % (24.0-44.0); MEAN CORPUSCULAR HEMOGLOBIN 28.8 pg (27.0-33.0); MEAN CORPUSCULAR HGB CONC 30.5 g/dl (32.0-36.5); MEAN CORPUSCULAR VOLUME 94.2 fl (80.0-96.0); MONO # 0.7 10^3/uL (0.0-0.8); MONO % 8.2 % (2.0-8.0); NEUTROPHILS # 5.8 10^3/uL (1.5-8.5); NEUTROPHILS % 67.1 % (36.0-66.0); PLATELET COUNT, AUTOMATED 198 10^3/uL (150-450); RED BLOOD COUNT 4.45 10^6/uL (4.30-6.10); WHITE BLOOD COUNT 8.6 10^3/uL (4.0-10.0)
[2021-01-12 13:51] LABS: INR 1.25
[2021-01-12 14:05] LABS: ALBUMIN 3.3 GM/DL (3.2-5.2); ALT/SGPT 17 U/L (12-78); BILIRUBIN,DIRECT 0.1 MG/DL (0.0-0.2); BILIRUBIN,TOTAL 0.3 MG/DL (0.2-1.0); BLOOD UREA NITROGEN 51 MG/DL (7-18); CALCIUM LEVEL 8.7 MG/DL (8.8-10.2); CARBON DIOXIDE LEVEL 41 MEQ/L (21-32); CHLORIDE LEVEL 96 MEQ/L (98-107); CK-MB VALUE MASS < 1.0 NG/ML (<3.6); CPK CREATINE PHOSPHOKINASE 39 U/L (39-308); CREATININE FOR GFR 1.52 MG/DL (0.70-1.30); GLOMERULAR FILTRATION RATE 48.1 (>42); GLUCOSE, FASTING 184 MG/DL (70-100); MB/CK RELATIVE INDEX 2.56 (< OR =4); NT-PRO BNP 411 PG/ML (<125); POTASSIUM SERUM 4.1 MEQ/L (3.5-5.1); SODIUM LEVEL 139 MEQ/L (136-145); TOTAL PROTEIN 7.3 GM/DL (6.4-8.2); TROPONIN I < 0.02 NG/ML (< 0.10)
[2021-01-12] MEDS ORDERED: ISOVUE-370 76% 100ML VIAL As Ordered ONE (14:35)
--- NOTE | 2021-01-12 15:59 | REP ---
INDICATION: sob. COMPARISON: 09/14/2020. TECHNIQUE: CT angiogram chest performed following the intravenous administration of 100 cc of Isovue 370. Sagittal and coronal reconstruction images are performed. FINDINGS: Lungs: There are mild dependent atelectatic changes in the right lower lobe. There is a band of fibro atelectasis and a calcified granuloma in the left upper lobe. Mediastinum: No adenopathy. There are stable small calcified and noncalcified lymph nodes present. Pulmonary arteries: No evidence of pulmonary embolism. Saba: No adenopathy. There are few small calcified lymph nodes present. Axilla: No adenopathy. Pleura: No effusion. Heart: Not enlarged. Thoracic aorta: No aneurysm or dissection. There are atherosclerotic calcifications with plaquing and mild narrowing. Upper abdominal structures: Unremarkable. Visualized osseous structures: Unremarkable. IMPRESSION: No CT evidence of pulmonary embolism. No infiltrate seen. Chronic lung findings, prior granulomatous disease. Mild dependent atelectatic changes right lower lobe. <Electronically signed by Ron Geller > 01/12/21 0150
[2021-01-12] MEDS ORDERED: PRED20TA PO (16:37)
[2021-01-12 17:08] VITALS: BP 102/58
--- NOTE | 2021-01-12 19:57 | ECGEPIP ---
[facility] - ED Test Date: 2021-01-12 Pat Name: MASHA CANO Department: Room: - Gender: Male Regional Liaison: MATILDE : 1945 Requested By: MASHA Gonzalez Order Number: [id number] Reading MD: Erin Shah Measurements Intervals [place] Rate: 63 P: 83 NE: 190 QRS: 64 QRSD: 86 T: 66 QT: 450 QTc: 460 Interpretive Statements Normal sinus rhythm NSTTW abnormalities prolonged qtc decreased rate 10/17/20 Electronically Signed on 01-12-2021 19:58:25 EDT by Erin Shah
== END 2021-01-12 17:10 | disposition home or self-care (01) ==
LOC: M ED 11:58
DX: J44.1 Chronic obstructive pulmonary disease with (acute) exacerbation (principal); I48.91 Unspecified atrial fibrillation; E11.9 Type 2 diabetes mellitus without complications; I10 Essential (primary) hypertension; N18.6 End stage renal disease; Z95.0 Presence of cardiac pacemaker; F17.200 Nicotine dependence, unspecified, uncomplicated; Z79.01 Long term (current) use of anticoagulants; Z79.4 Long term (current) use of insulin; Z79.899 Other long term (current) drug therapy; Z91.030 Bee allergy status
CPT/HCPCS: 36600; 71275; 80048; 80076; 82550; 82553; 82803; 83605; 83880; 84484; 85025; 85610; 87040; 87798; 93005; 93041; 94640; 94664; 96361; 96374; 99284; J2930; Q9967

== ENCOUNTER → 2021-02-12 | Outpatient (CLI) | payer MEDICARE ==
[~2021-02-12] MED LIST changes: +TREL1AER INH
--- NOTE | 2021-02-13 14:38 | SLEEPCENT ---
NOCTURNAL POLYSOMNOGRAPHY DATE: 02/12/2021 ORDERED BY: PHU Abbasi Nocturnal polysomnography was performed for evaluation of sleep physiology in this patient with a history of excessive somnolence and nonrestorative sleep. For testing, oxygen was applied at 2 L/min via nasal cannula, which was the patient's usual flow rate. 7 hours and 41 minutes of data were reviewed. There were 215.5 minutes of sleep identified. Sleep latency was normal at 25.5 minutes. REM sleep was somewhat delayed at 166.5 minutes. Sleep architecture showed poor progression. There was only one REM cycle and significant wake was noted. Overall sleep efficiency was 47.4%. The electrocardiogram showed atrial fibrillation with a controlled ventricular response rate of 70 beats per minute. EEG showed normal waveforms for wake and sleep. There were 25 respiratory events identified of 10 seconds in duration or greater for an apnea-hypopnea index of 6.4. The events were obstructive, 12 mixed and 5 central apneas were also noted. The events were more frequent, but not exclusive to the supine posture. Arousals from respiratory events occurred 7.5 times per hour and despite supplemental oxygen, desaturations into the 80s were seen. There was some minor limb activity. Limb movement arousal index was 3.3. IMPRESSION: Obstructive sleep apnea syndrome (G47.33), apnea-hypopnea index 6.4. RECOMMENDATION: The patient should be encouraged to return to [facility] for pressure therapy. In the interim, alcohol and sedative avoidance should be practiced and caution exercised during the operation of motor vehicles.
== END ==
LOC: M SLEEP 20:00
PROVIDERS: ATTEND Physician Assistant
DX: R40.0 Somnolence (principal)

== ENCOUNTER 2021-03-04 10:42 | Inpatient (IN) | payer MEDICARE ==
[~2021-03-04] VITALS: Ht 170.2 cm; Wt 84.5 kg
[~2021-03-04 10:42] MED LIST changes: -IPRA0.00 INH; +IPRA0.00 NEB; -IPRA6SP; +IPRA6SP NARES
[2021-03-04] MEDS ORDERED: IPRATROPIUM 0.5MG/ALBUTEROL 2.5MG INH SOL UD 3ML (DUONEB) NEB ONE (11:15)
[2021-03-04] MEDS ORDERED: ALBUTEROL SULFATE 2.5 MG/0.5 ML INH NEB SOLN INH ONE (11:15)
[2021-03-04] MEDS ORDERED: methylPREDNISolone 125MG 2ML VIAL IV ONE (11:20)
[2021-03-04] MEDS: COMBIVENT RESPIMAT 100-20MCG INHALER 4GM INH SCH ×3 (11:28→12:14)
--- NOTE | 2021-03-04 11:31 | REP ---
INDICATION: DYSPNEA/COUGH COMPARISON: 10/21/2020 TECHNIQUE: Portable AP view of the chest FINDINGS: The mediastinum and cardiac silhouette are stable and within normal limits for portable technique. Two lead pacemaker in stable position. The lung salvador demonstrate chronic interstitial changes without acute consolidation, effusion, or pneumothorax. Skeletal structures are intact. IMPRESSION: No acute cardiopulmonary process appreciated. <Electronically signed by Ramos Deleon > 03/04/21 1730
[2021-03-04 11:41] LABS: BASO # 0.1 10^3/uL (0.0-0.2); BASO % 0.8 % (0.0-1.0); EOS # 0.8 10^3/uL (0.0-0.5); EOS % 8.1 % (0.0-3.0); HEMATOCRIT 45.2 % (42.0-52.0); HEMOGLOBIN 13.7 g/dl (13.5-17.5); LYMPH # 1.6 10^3/uL (1.5-5.0); MEAN CORPUSCULAR HEMOGLOBIN 28.2 pg (27.0-33.0); MEAN CORPUSCULAR HGB CONC 30.3 g/dl (32.0-36.5); MONO # 0.8 10^3/uL (0.0-0.8); MONO % 8.4 % (2.0-8.0); NEUTROPHILS # 6.2 10^3/uL (1.5-8.5); NEUTROPHILS % 65.4 % (36.0-66.0); PLATELET COUNT, AUTOMATED 200 10^3/uL (150-450); RED BLOOD COUNT 4.86 10^6/uL (4.30-6.10); WHITE BLOOD COUNT 9.5 10^3/uL (4.0-10.0)
[2021-03-04 12:35] LABS: ALBUMIN 3.4 GM/DL (3.2-5.2); ALT/SGPT 12 U/L (12-78); BILIRUBIN,DIRECT < 0.1 MG/DL (0.0-0.2); BILIRUBIN,TOTAL 0.3 MG/DL (0.2-1.0); BLOOD UREA NITROGEN 37 MG/DL (7-18); CALCIUM LEVEL 8.9 MG/DL (8.8-10.2); CHLORIDE LEVEL 96 MEQ/L (98-107); CPK CREATINE PHOSPHOKINASE 36 U/L (39-308); CREATININE FOR GFR 1.42 MG/DL (0.70-1.30); GLUCOSE, FASTING 184 MG/DL (70-100); POTASSIUM SERUM 4.1 MEQ/L (3.5-5.1); SODIUM LEVEL 138 MEQ/L (136-145); THYROXINE (T4) 7.5 UG/DL (4.5-12.0); TOTAL PROTEIN 7.3 GM/DL (6.4-8.2)
[2021-03-04 12:59] LABS: CARBON DIOXIDE LEVEL 40 MEQ/L (21-32); CK-MB VALUE MASS < 1.0 NG/ML (<3.6); MB/CK RELATIVE INDEX 2.78 (< OR =4); TROPONIN I < 0.02 NG/ML (< 0.10)
[2021-03-04] MEDS ORDERED: ISOVUE-370 76% 100ML VIAL As Ordered ONE (13:30)
[2021-03-04] MEDS ORDERED: ACETAMINOPHEN TAB 650MG DOSE (2X325MG) PO PRN (14:05)
--- NOTE | 2021-03-04 14:35 | HPEPDOC ---
General Date of Admission Mar 04, 2021 at 14:04 Date of Service: Mar 04, 2021 Chief Complaint The patient is a 75-year-old male admitted with a reason for visit of Acute And Chronic Respiratory Failure. Source: Patient Exam Limitations: No limitations Timing/Duration: 24 hours Severity: Moderate History of Present Illness 75 yr old male w a hx of Afib, COPD, O2 dependent respiratory failure, possible HFpEF, HTN, DM2, HTN, DLP and CKD3 who presented to the hospital with increased shortness of breath. Patient stated that since yesterday he has been having increased shortness of breath especially with exertion. Patient denied any cough fever or chills. He denied any sputum production. He reported that his oxygen requirements increased to 4 L. In ER patient was found to have increased oxygen requirements up to 4 L by nasal cannula, afebrile, no leukocytosis, creatinine 1.4. Chest x-ray showed no acute cardiopulmonary process. Home Medications Scheduled Amlodipine Besylate (Amlodipine Besylate) 2.5 Mg Tablet, 2.5 MG PO DAILY Apixaban (Eliquis) 5 Mg Tablet, 5 MG PO BID, (Reported) Dulaglutide (Trulicity) 0.75 Mg/0.5 Ml Pen.injctr, 0.75 MG SC QWEEK, (Reported) Fluticasone/Umeclidin/Vilanter (Trelegy Ellipta 100-62.5-25) 1 Each Blst.w.dev, 1 PUFF INH DAILY, (Reported) Furosemide (Furosemide) 20 Mg Tablet, 2 TAB PO DAILY, (Reported) Insulin Glargine,Hum.rec.anlog (Basaglar Kwikpen U-100) 100 Unit/1 Ml I nsuln.pen, 35 UNIT SC QHS, (Reported) Ipratropium/Albuterol Sulfate (Iprat-Albut 0.5-3(2.5) mg/3 ml) 3 Ml Ampul.neb, 3 ML INH Q4H, (Reported) Latanoprost (Xalatan) 0.005% 2.5ML Drops, 1 DROP OU QHS, (Reported) Metformin HCl (Metformin HCl ER) 500 Mg Tab.er.24h, 1,000 MG PO WM, (Reported) Simvastatin (Simvastatin) 40 Mg Tablet, 40 MG PO DAILY, (Reported) Sotalol Hcl (Sotalol) 120 Mg Tablet, 120 MG PO BID, (Reported) Scheduled PRN Albuterol Sulf (Albuterol Sulfate) 2.5 Mg/3 Ml Vial.neb, 2.5 MG INH Q4H PRN for SOB/WHEEZING, (Reported) Ipratropium [place] (Ipratropium [place]) 15 Ml [place], 2 SPRAY NA TID PRN for CONGESTION, (Reported) Allergies Coded Allergies: bee venom protein (honey bee) (Verified Allergy, Unknown, 09/14/20) Past Medical History Medical History Chronic Atrial fibrillation Pacemaker COPD Chronic O2 dependent respiratory failure 2L on BiPAP Possible HFpEF ? DM2 Chronic HTN DLP CKD 3 Surgical History Pacemaker placement Family History I personally reviewed medical history and found not pertinent Social History * Smoker: former Smoker Alcohol: Denies Drugs: denies A-FIB/CHADSVASC A-FIB History Current/History of A-Fib/PAF?: Yes Current PO Anticoag Therapy: Yes Review of Systems Constitutional: Denies: Chills, Fever Eyes: Denies: Pain ENT: Denies: Head Aches Skin: Denies: Rash, Lesions Pulmonary: Reports: Dyspnea; Denies: Cough Cardiovascular: Denies: Chest Pain, Palpitations Gastrointestinal: Denies: Nausea Genitourinary: Denies: Dysuria Hematologic: Denies: Bruising Endocrine: Denies: Polydipsia Musculoskeletal: Denies: Neck Pain Neurological: Denies: Weakness Psych: Reports: Mood Normal Physical Examination General Exam: Positive: Alert Eye Exam: Positive: PERRLA ENT Exam: Positive: Atraumatic Neck Exam: Positive: Supple, JVD Chest Exam: Positive: Diminished Heart Exam: Positive: Irregular Rhythm Telemetry: Positive: Atrial fibrillation Abdomen Exam: Positive: Normal bowel sounds Extremity Exam: Negative: Clubbing, Cyanosis Skin Exam: Positive: Nl turgor and temperature Neuro Exam: Positive: Strength at 5/5 X4 ext Psych Exam: Positive: Mental status NL Vital Signs Vital Signs Date Time Temp Pulse Resp B/P (MAP) Pulse Ox O2 Delivery O2 Flow Rate FiO2 03/04/21 11:42 68 94 Nasal Cannula 4.0 03/04/21 11:41 03/04/21 10:43 97.9 18 Laboratory Data Labs 24H Laboratory Tests 2 03/04/21 11:03: Immature Granulocyte % (Auto) 0.3, Neutrophils (%) (Auto) 65.4, Lymphocytes (%) (Auto) 17.0L, Monocytes (%) (Auto) 8.4H, Eosinophils (%) (Auto) 8.1H, Basophils (%) (Auto) 0.8, Neutrophils # (Auto) 6.2, Lymphocytes # (Auto) 1.6, Monocytes # (Auto) 0.8, Eosinophils # (Auto) 0.8H, Basophils # (Auto) 0.1, Nucleated Red Blood Cells % (auto) 0.0, Anion Gap 2L, Glomerular Filtration Rate 52.0, Lactic Acid Level 1.6, Calcium Level 8.9, Total Bilirubin 0.3, Direct Bilirubin < 0.1, Aspartate Amino Transf (AST/SGOT) 12, Alanine Aminotransferase (ALT/SGPT) 12, Alkaline Phosphatase 76, Total Creatine Kinase 36L, Creatine Kinase MB < 1.0, Creatine Kinase MB Relative Index 2.78, Troponin I < 0.02, Total Protein 7.3, Albumin 3.4, Albumin/Globulin Ratio 0.9, Thyroid Stimulating Hormone (TSH) 1.470, Thyroxine (T4) 7.5 03/04/21 11:28: POC pH (Misc Panel) 7.343L, POC Base Excess (Misc Panel) 15.0H, POC Saturated Percent O2 (Misc) 91L, POC pO2 (Misc Panel) 68.0L, POC pCO2 (Misc Panel) 74.9*H, POC HCO3 (Misc Panel) 40.7H, POC Total CO2 (Misc Panel) 43.0H CBC/BMP Laboratory Tests 03/04/21 11:03 Microbiology Microbiology 03/04/21 Respiratory Virus Panel (PCR) ([facility]) - Final, Complete 03/04/21 Blood Culture, Received Pending 03/04/21 Blood Culture, Received Pending Assessment/Plan 75 yr old male w a hx of Afib, COPD, O2 dependent respiratory failure, possible HFpEF, HTN, DM2, HTN, DLP and CKD3 who presented to the hospital with increased shortness of breath. Patient stated that since yesterday he has been having increased shortness of breath especially with exertion. Patient denied any cough fever or chills. He denied any sputum production. He reported that his oxygen requirements increased to 4 L. In ER patient was found to have increased oxygen requirements up to 4 L by nasal cannula, afebrile, no leukocytosis, creatinine 1.4. Chest x-ray showed no acute cardiopulmonary process. Problems (1) Acute and chronic respiratory failure with hypercapnia Status: Acute Problem Text: Most likely secondary to CHF exacerbation Lungs clear on auscultation, no wheezes. No cough or sputum BiPAP overnight Continue to mind blood gas (2) Diastolic CHF, acute on chronic Status: Acute Problem Text: Last echo showed preserved ejection fraction We will check BNP Will repeat echo Lasix IV I's and O's (3) Atrial fibrillation Status: Chronic Problem Text: Heart rate under control Continue oral targeted anticoagulation (4) Acute on chronic kidney failure Status: Chronic Problem Text: Most like secondary to intravascular depletion Continue to monitor (5) Diabetes mellitus Status: Chronic Problem Text: Diabetes diet Insulin sling scale Detemir twice a day (6) Hyperlipidemia Status: Chronic Problem Text: Continue statin Plan / VTE VTE Prophylaxis Ordered?: Yes MEY MALDONADO DO Mar 04, 2021 14:35
[2021-03-04] MEDS ORDERED: ALBUTEROL SULFATE 2.5 MG/0.5 ML INH NEB SOLN NEB PRN (14:40)
[2021-03-04 14:50] LABS: NT-PRO BNP 464 PG/ML (<125)
[2021-03-04] MEDS ORDERED: FUROSEMIDE 40MG/4ML VIAL (J1940) IV SCH (15:00)
--- NOTE | 2021-03-04 15:39 | REP ---
INDICATION: sob COMPARISON: 01/12/2021 TECHNIQUE: Axial contrast enhanced images from the thoracic inlet to the upper abdomen using pulmonary embolus technique with multiplanar re-formations. 75 ml Isovue 370 intravenous contrast material administered without complication. This CT examination was performed using the following dose reduction techniques: Automated exposure control, adjustment of mA and/or kv according to the patient's size, and use of iterative reconstruction technique. FINDINGS: Satisfactory enhancement of the pulmonary vasculature is achieved and no filling defects are identified to suggest pulmonary embolus. Further evaluation of the mediastinum demonstrates stable atherosclerotic changes to the thoracic aorta and coronary arteries. No cardiomegaly or pericardial effusion. The bilateral lung salvador demonstrate stable chronic interstitial changes and evidence for prior granulomatous disease including stable calcified and noncalcified mediastinal/hilar lymph nodes without significant acute adenopathy. No effusion. No pneumothorax. Surrounding musculoskeletal structures are intact. IMPRESSION: No evidence for pulmonary embolus. No acute mediastinal or pleural parenchymal process. <Electronically signed by Ramos Deleon > 03/04/21 [id number]
[2021-03-04] MEDS ORDERED: AMLO2.5T3 PO (16:05)
[2021-03-04 16:06] VITALS: BP 132/75
[2021-03-04] MEDS: PANTOPRAZOLE 40MG TAB (PROTONIX) PO SCH (17:42)
--- NOTE | 2021-03-04 19:28 | ECGEPIP ---
[facility] - ED Test Date: 2021-03-04 Pat Name: MASHA CANO Department: Room: - Gender: Male Skatesman: ivy : 1945 Requested By: Barry Montgomery Order Number: [id number] Reading MD: Barry Montgomery Measurements Intervals [place] Rate: 70 P: 86 MA: 204 QRS: 84 QRSD: 88 T: 73 QT: 444 QTc: 479 Interpretive Statements Normal sinus rhythm w first degree block Baseline artifact may affect reading Nonspecific ST T wave changes Prolonged QTc cw 01/12/[address] T wave changes Electronically Signed on 03-04-2021 19:28:27 EDT by Barry Montgomery
[2021-03-04] MEDS: ADVAIR HFA 115/21MCG INHALER INH SCH (19:31)
[2021-03-04] MEDS: IPRATROPIUM 0.5MG/ALBUTEROL 2.5MG INH SOL UD 3ML (DUONEB) NEB SCH (19:31)
[2021-03-04] MEDS ORDERED: LEVEMIR (INSULIN DETEMIR) 1 UNITS/0.01ML SC SCH (21:00)
[2021-03-04 21:37] VITALS: BP 117/56
[2021-03-04] MEDS: APIXABAN 5 MG TAB (ELIQUIS) PO SCH (22:10)
[2021-03-04] MEDS ORDERED: DEXTROSE 50% 50 ML SYRINGE IV PRN (22:20)
[2021-03-04] MEDS ORDERED: GLUCAGON INJ 1MG VIAL SC PRN (22:20)
[2021-03-04] MEDS ORDERED: GLUCOSE 4GM CHEW TABLET PO PRN (22:20)
[2021-03-04] MEDS ORDERED: HumaLOG INSULIN (NovoLOG) PER UNIT SC ONE (23:00)
[2021-03-04] MEDS ORDERED: FUROSEMIDE 40MG/4ML VIAL (J1940) IV ONE (23:00)
[2021-03-04] MEDS: HumaLOG INSULIN (NovoLOG) PER UNIT SC SCH (23:00)
[2021-03-04 23:29] VITALS: BP 118/77
[2021-03-05 04:16] VITALS: BP 116/57
[2021-03-05] MEDS: IPRATROPIUM 0.5MG/ALBUTEROL 2.5MG INH SOL UD 3ML (DUONEB) NEB SCH ×4 (04:34→20:31)
[2021-03-05 05:34] LABS: HEMATOCRIT 43.6 % (42.0-52.0); HEMOGLOBIN 13.3 g/dl (13.5-17.5); MEAN CORPUSCULAR HEMOGLOBIN 28.2 pg (27.0-33.0); MEAN CORPUSCULAR HGB CONC 30.5 g/dl (32.0-36.5); MEAN CORPUSCULAR VOLUME 92.4 fl (80.0-96.0); PLATELET COUNT, AUTOMATED 226 10^3/uL (150-450); RED BLOOD COUNT 4.72 10^6/uL (4.30-6.10); WHITE BLOOD COUNT 9.7 10^3/uL (4.0-10.0)
[2021-03-05 05:57] LABS: ALBUMIN 3.2 GM/DL (3.2-5.2); BILIRUBIN,TOTAL 0.3 MG/DL (0.2-1.0); CALCIUM LEVEL 8.9 MG/DL (8.8-10.2); CREATININE FOR GFR 1.69 MG/DL (0.70-1.30); GLOMERULAR FILTRATION RATE 42.6 (>42); MAGNESIUM LEVEL 1.8 MG/DL (1.8-2.4); POTASSIUM SERUM 4.3 MEQ/L (3.5-5.1); TOTAL PROTEIN 7.1 GM/DL (6.4-8.2)
[2021-03-05 08:00] VITALS: BP 133/62
[2021-03-05] MEDS: ADVAIR HFA 115/21MCG INHALER INH SCH ×2 (08:05→20:32)
[2021-03-05] MEDS: HumaLOG INSULIN (NovoLOG) PER UNIT SC SCH ×4 (08:27→20:45)
[2021-03-05] MEDS: APIXABAN 5 MG TAB (ELIQUIS) PO SCH ×2 (08:38→20:45)
[2021-03-05] MEDS: PANTOPRAZOLE 40MG TAB (PROTONIX) PO SCH (08:38)
[2021-03-05] MEDS ORDERED: predniSONE 20 MG TAB PO SCH (09:00)
[2021-03-05] MEDS ORDERED: SLF 3 ML SYR IV PRN (09:45)
[2021-03-05] MEDS: SOTALOL 40MG PER 1/2 TABLET PO SCH ×2 (10:04→20:45)
[2021-03-05] MEDS: LEVEMIR (INSULIN DETEMIR) 1 UNITS/0.01ML SC SCH ×2 (10:05→20:46)
[2021-03-05] MEDS: SOTALOL HCL 80 MG TAB PO SCH ×2 (10:05→20:45)
--- NOTE | 2021-03-05 11:05 | IPNPDOC ---
Text Note Date of Service The patient was seen on 03/05/21. NOTE Subjective: Patient stated that he feels better today, his breathing improved, leg swelling improved. Patient denied fever, chills, cough, sputum production, diarrhea Objective: GENERAL APPEARANCE: NAD HEENT: no scleral icterus, plus JVD, EOMI CARDIOVASCULAR: S1S2 LUNGS: Diminished lung sounds bilaterally ABDOMEN: soft & not tender w palpitation MUSCULOSKELETAL: no cyanosis, no swelling INTEGUMENT: no generalized pallor NEUROLOGICAL: cranial nerve function from 2-12 intact intact, follows commands, speech not dysarthric Assessment/Plan 75 yr old male w a hx of Afib, COPD, O2 dependent respiratory failure, possible HFpEF, HTN, DM2, HTN, DLP and CKD3 who presented to the hospital with increased shortness of breath. Patient stated that since yesterday he has been having increased shortness of breath especially with exertion. Patient denied any cough fever or chills. He denied any sputum production. He reported that his oxygen requirements increased to 4 L. In ER patient was found to have increased oxygen requirements up to 4 L by nasal cannula, afebrile, no leukocytosis, creatinine 1.4. Chest x-ray showed no acute cardiopulmonary process. Problems (1) Acute and chronic respiratory failure with hypercapnia Improved Most likely secondary to CHF exacerbation Lungs clear on auscultation, no wheezes. No cough or sputum (2) Diastolic CHF, acute on chronic Last echo showed preserved ejection fraction BNP 464 Await echo Continue Lasix IV I's and O's (3) Atrial fibrillation Heart rate under control Continue oral targeted anticoagulation (4) Acute on chronic kidney failure Most like secondary to intravascular depletion Continue to monitor (5) Diabetes mellitus Diabetes diet Insulin sling scale Due to episode of hyperglycemia I increased his dose of detemir (6) Hyperlipidemia Chronic COPD Unlikely COPD exacerbation No cough, no sputum Continue inhalers I DC prednisone by mouth VS,Fishbone, I+O VS, Fishbone, I+O Laboratory Tests 03/04/21 11:03 03/05/21 04:45 Vital Signs Date Time Temp Pulse Resp B/P (MAP) Pulse Ox O2 Delivery O2 Flow Rate FiO2 03/05/21 10:04 96 133/62 03/05/21 08:00 97.4 18 94 Nasal Cannula 03/05/21 04:27 4.0 I&O- Last 24 Hours up to 6 AM 03/05/21 06:00 Intake Total 1220 ml Output Total 1525 ml Balance -305 ml MEY MALDONADO DO Mar 05, 2021 11:05
[2021-03-05 12:00] VITALS: BP 135/70
[2021-03-05] MEDS: FUROSEMIDE 40MG/4ML VIAL (J1940) IV SCH ×2 (13:05→23:24)
[2021-03-05] MEDS: SLF 3 ML SYR IV SCH ×2 (14:23→20:46)
[2021-03-05 16:00] VITALS: BP 121/91
[2021-03-05] MEDS ORDERED: LEVEMIR (INSULIN DETEMIR) 1 UNITS/0.01ML SC ONE (18:30)
[2021-03-05 20:00] VITALS: BP 145/65
[2021-03-05] MEDS ORDERED: SIMVASTATIN 40 MG TAB PO SCH (21:00)
[2021-03-05 23:24] VITALS: BP 144/70
[2021-03-06] VITALS: BP 127/70
[2021-03-06 00:44] VITALS: BP 145/85
[2021-03-06] MEDS: IPRATROPIUM 0.5MG/ALBUTEROL 2.5MG INH SOL UD 3ML (DUONEB) NEB SCH ×3 (01:50→12:48)
[2021-03-06] MEDS: SLF 3 ML SYR IV SCH (05:43)
[2021-03-06 06:00] VITALS: BP 113/60
[2021-03-06] MEDS: HumaLOG INSULIN (NovoLOG) PER UNIT SC SCH ×2 (07:18→12:00)
[2021-03-06] MEDS: ADVAIR HFA 115/21MCG INHALER INH SCH (07:33)
[2021-03-06] MEDS: APIXABAN 5 MG TAB (ELIQUIS) PO SCH (08:01)
[2021-03-06] MEDS: PANTOPRAZOLE 40MG TAB (PROTONIX) PO SCH (08:01)
[2021-03-06 08:07] VITALS: BP 106/64
[2021-03-06] MEDS: SOTALOL HCL 80 MG TAB PO SCH (08:07)
[2021-03-06] MEDS: SOTALOL 40MG PER 1/2 TABLET PO SCH (08:07)
[2021-03-06] MEDS: LEVEMIR (INSULIN DETEMIR) 1 UNITS/0.01ML SC SCH (08:11)
--- NOTE | 2021-03-06 09:00 | ECHO ---
ECHOCARDIOGRAM DATE OF PROCEDURE: 03/05/2021 Age: Gender: Height: 170 cm Weight: 83 kg REFERRING PHYSICIAN: Dr. Warner. INDICATION: Congestive heart failure. MEASUREMENTS: IVS 0.7 cm LV 4.4 cm LVPW 1.0 cm LA 3.4 cm Aorta 3.2 cm IVC 1.7 cm Mitral E wave velocity 81 A wave 65 E prime septal 7.0 E prime lateral 7.4 FINDINGS: This study is of rather limited technical quality with difficult visualization. Underlying sinus rhythm. Left ventricle is normal size and normal systolic function. I estimate EF around 65% based on rather limited views. Subtle wall motion abnormalities cannot certainly be ruled out. Right ventricle appears normal size and systolic function. Both atria appear normal. Aortic valve is mildly sclerotic but has three cusps and preserved mobility. There are mild degenerative abnormalities of mitral valve with mitral annular calcifications. Tricuspid valve appears normal. Pulmonic valve was poorly visualized. No pericardial effusion is noted. Inferior vena cava is normal size and appropriately collapses with inspiration indicative of normal central venous pressure. Aortic root and abdominal aorta appear normal. Aortic arch was not well seen. Doppler interrogation reveals competent aortic valve. There is also competent mitral and tricuspid valve. Mitral inflow pattern and tissue Doppler imaging of mitral annulus revealed grade 2 diastolic dysfunction. CONCLUSIONS: 1. Study is of fair technical quality with rather limited visualization. Underlying sinus rhythm. 2. Normal LV size with preserved LV systolic function and likely grade 2 diastolic dysfunction. 3. Normal RV size. 4. No significant valvular disease. 5. Likely normal central venous pressure. 6. Unable to estimate pulmonary artery pressure. 7. Pericardial fat pad is noted.
[2021-03-06 09:42] LABS: HEMATOCRIT 42.6 % (42.0-52.0); MEAN CORPUSCULAR HEMOGLOBIN 28.2 pg (27.0-33.0); MEAN CORPUSCULAR HGB CONC 30.5 g/dl (32.0-36.5); MEAN CORPUSCULAR VOLUME 92.4 fl (80.0-96.0); PLATELET COUNT, AUTOMATED 206 10^3/uL (150-450); RED BLOOD COUNT 4.61 10^6/uL (4.30-6.10); WHITE BLOOD COUNT 13.9 10^3/uL (4.0-10.0)
[2021-03-06 10:25] LABS: ALBUMIN 3.2 GM/DL (3.2-5.2); BILIRUBIN,TOTAL 0.2 MG/DL (0.2-1.0); CALCIUM LEVEL 8.4 MG/DL (8.8-10.2); CREATININE FOR GFR 1.36 MG/DL (0.70-1.30); GLOMERULAR FILTRATION RATE 54.7 (>42); POTASSIUM SERUM 4.4 MEQ/L (3.5-5.1); TOTAL PROTEIN 6.9 GM/DL (6.4-8.2)
[2021-03-06 10:40] LABS: HEMOGLOBIN A1c 7.2 %
[2021-03-06] MEDS: FUROSEMIDE 40MG/4ML VIAL (J1940) IV SCH (12:00)
[2021-03-06] MEDS ORDERED: TORS10TA3 PO (12:14)
--- NOTE | 2021-03-06 19:28 | DS.PDOC ---
Discharge Summary General Date of Admission Mar 04, 2021 at 14:04 Date of Discharge 03/06/21 Discharge Summary PROCEDURES PERFORMED DURING STAY: [None]. ADMITTING DIAGNOSES: Acute and chronic respiratory failure with hypercapnia Diastolic CHF, acute on chronic Atrial fibrillation Acute on chronic kidney failure Diabetes mellitus Hyperlipidemia COPD DISCHARGE DIAGNOSES: Acute and chronic respiratory failure with hypercapnia Diastolic CHF, acute on chronic Atrial fibrillation Acute on chronic kidney failure Diabetes mellitus Hyperlipidemia COPD COMPLICATIONS/CHIEF COMPLAINT: Acute And Chronic Respiratory Failure. HISTORY OF PRESENT ILLNESS:75 yr old male w a hx of Afib, COPD, O2 dependent respiratory failure, possible HFpEF, HTN, DM2, HTN, DLP and CKD3 who presented to the hospital with increased shortness of breath. Patient stated that since yesterday he has been having increased shortness of breath especially with exertion. Patient denied any cough fever or chills. He denied any sputum production. He reported that his oxygen requirements increased to 4 L. In ER patient was found to have increased oxygen requirements up to 4 L by nasal cannula, afebrile, no leukocytosis, creatinine 1.4. Chest x-ray showed no acute cardiopulmonary process. HOSPITAL COURSE: During hospital stay the following issues addressed (1) Acute and chronic respiratory failure with hypercapnia Improved Most likely secondary to CHF exacerbation Lungs clear on auscultation, no wheezes. No cough or sputum (2) Diastolic CHF, acute on chronic Last echo showed preserved ejection fraction BNP 464 Patient received Lasix IV I's and O's (3) Atrial fibrillation Heart rate under control Continue oral targeted anticoagulation (4) Acute on chronic kidney failure Most like secondary to intravascular depletion Continue to monitor Improved (5) Diabetes mellitus Diabetes diet Insulin sling scale Due to episode of hyperglycemia I increased his dose of detemir (6) Hyperlipidemia Chronic COPD Unlikely COPD exacerbation No cough, no sputum Continue inhalers I DC prednisone by mouth DISCHARGE MEDICATIONS: Please see below. ALLERGIES: Please see below. PHYSICAL EXAMINATION ON DISCHARGE: VITAL SIGNS: Please see below. GENERAL APPEARANCE: NAD HEENT: no scleral icterus, plus JVD, EOMI CARDIOVASCULAR: S1S2 LUNGS: Diminished lung sounds bilaterally ABDOMEN: soft & not tender w palpitation MUSCULOSKELETAL: no cyanosis, no swelling INTEGUMENT: no generalized pallor NEUROLOGICAL: cranial nerve function from 2-12 intact intact, follows commands, speech not dysarthric LABORATORY DATA: Please see below. IMAGING: [facility] NAME: MASHA CANO : 1945 MEDICAL REC #: [id number] ROOM: [facility] [place] ACCOUNT: [id number] ORDERING DOCTOR: MEY WARNER DO PATIENT STATUS: ADM IN DICTATING DOCTOR: Jovi Schultz MD REPORT #: [id number] cc: [~ rep ct ivnm] ECHOCARDIOGRAM-DOPPLER REPORT Printed: [~ rep prt dt last] [~ rep prt tm last] Page 2 of [address] [address] ECHOCARDIOGRAM-DOPPLER REPORT ECHOCARDIOGRAM-DOPPLER REPORT Printed: [~ rep prt dt last] [~ rep prt tm last] Page 1 of 1 DATE OF PROCEDURE: 03/05/2021 Age: Gender: Height: 170 cm Weight: 83 kg REFERRING PHYSICIAN: Dr. Warner. INDICATION: Congestive heart failure. MEASUREMENTS: IVS 0.7 cm LV 4.4 cm LVPW 1.0 cm LA 3.4 cm Aorta 3.2 cm IVC 1.7 cm Mitral E wave velocity 81 A wave 65 E prime septal 7.0 E prime lateral 7.4 FINDINGS: This study is of rather limited technical quality with difficult visualization. Underlying sinus rhythm. Left ventricle is normal size and normal systolic function. I estimate EF around 65% based on rather limited views. Subtle wall motion abnormalities cannot certainly be ruled out. Right ventricle appears normal size and systolic function. Both atria appear normal. Aortic valve is mildly sclerotic but has three cusps and preserved mobility. There are mild degenerative abnormalities of mitral valve with mitral annular calcifications. Tricuspid valve appears normal. Pulmonic valve was poorly visualized. No pericardial effusion is noted. Inferior vena cava is normal size and appropriately collapses with inspiration indicative of normal central venous pressure. Aortic root and abdominal aorta appear normal. Aortic arch was not well seen. Doppler interrogation reveals competent aortic valve. There is also competent mitral and tricuspid valve. Mitral inflow pattern and tissue Doppler imaging of mitral annulus revealed grade 2 diastolic dysfunction. CONCLUSIONS: 1. Study is of fair technical quality with rather limited visualization. Underlying sinus rhythm. 2. Normal LV size with preserved LV systolic function and likely grade 2 diastolic dysfunction. 3. Normal RV size. 4. No significant valvular disease. 5. Likely normal central venous pressure. 6. Unable to estimate pulmonary artery pressure. 7. Pericardial fat pad is noted. DD: Jovi Schultz MD 03/05/212032 DT: CRISTIANE 03/06/21852 DS: DS2: [~ rep ct labl] PROGNOSIS: Fair ACTIVITY: [As tolerated]. DIET: Cardiac DISPOSITION: 01 Home, Self-Care. ITEMS TO FOLLOWUP ON ON OUTPATIENT: Follow-up with PCP and district superintendent in 3-5 days DISCHARGE CONDITION: [Stable]. TIME SPENT ON DISCHARGE:40 minutes. Vital Signs/I&Os Vital Signs Date Time Temp Pulse Resp B/P (MAP) Pulse Ox O2 Delivery O2 Flow Rate FiO2 03/06/21 09:00 2.0 03/06/21 08:07 70 106/64 03/06/21 06:00 98.6 18 97 Nasal Cannula I&O- Last 24 Hours up to 6 AM 03/06/21 06:00 Intake Total 1000 ml Output Total 1475 ml Balance -475 ml Laboratory Data Labs 24H Laboratory Tests 2 03/05/21 20:30: Bedside Glucose (Misc Panel) 430H 03/06/21 06:41: Bedside Glucose (Misc Panel) 83 03/06/21 09:24: Nucleated Red Blood Cells % (auto) 0.0, Anion Gap 2L, Glomerular Filtration Rate 54.7, Estimated Mean Plasma Glucose 160H, Hemoglobin A1c 7.2, Calcium Level 8.4L, Total Bilirubin 0.2, Aspartate Amino Transf (AST/SGOT) 11, Alanine Aminotransferase (ALT/SGPT) 14, Alkaline Phosphatase 65, Total Protein 6.9, Albumin 3.2, Albumin/Globulin Ratio 0.9 03/06/21 12:17: Bedside Glucose (Misc Panel) 106 CBC/BMP Laboratory Tests 03/06/21 09:24 FSBS Laboratory Tests Test 03/05/21 20:30 03/06/21 06:41 03/06/21 12:17 Range/Units Bedside Glucose (Misc Panel) 430 83 106 83-110 MG/DL Microbiology Microbiology 03/04/21 Respiratory Virus Panel (PCR) (LILA) - Final, Complete 03/04/21 Blood Culture - Preliminary, Resulted No Growth after 48 hours. All Specime... 03/04/21 Blood Culture - Preliminary, Resulted No Growth after 48 hours. All Specime... Discharge Medications Scheduled Amlodipine Besylate (Amlodipine Besylate) 2.5 Mg Tablet, 2.5 MG PO DAILY, (Reported) Apixaban (Eliquis) 5 Mg Tablet, 5 MG PO BID, (Reported) Dulaglutide (Trulicity) 0.75 Mg/0.5 Ml Pen.injctr, 0.75 MG SC QWEEK, (Reported) FRIDAY Fluticasone/Umeclidin/Vilanter (Trelegy Ellipta 100-62.5-25) 1 Each Blst.w.dev, 1 PUFF INH DAILY, (Reported) Insulin Glargine,Hum.rec.anlog (Basaglar Kwikpen U-100) 100 Unit/1 Ml Insuln.pen, 35 UNIT SC QHS, (Reported) Latanoprost (Xalatan) 0.005% 2.5ML Drops, 1 DROP OU QHS, (Reported) Metformin HCl (Metformin HCl ER) 500 Mg Tab.er.24h, 1,000 MG PO BIDWM, (Reported) Simvastatin (Simvastatin) 40 Mg Tablet, 40 MG PO QHS, (Reported) Sotalol Hcl (Sotalol) 120 Mg Tablet, 120 MG PO BID, (Reported) Torsemide (Torsemide) 10 Mg Tablet, 1 TAB PO DAILY Scheduled PRN Albuterol Sulf (Albuterol Sulfate) 2.5 Mg/3 Ml Vial.neb, 2.5 MG INH Q4H PRN for SOB/WHEEZING, (Reported) Ipratropium Cut [place] (Ipratropium Cut Off) 15 Ml [place], 2 SPRAY NARES TID PRN for CONGESTION, (Reported) Ipratropium/Albuterol Sulfate (Iprat-Albut 0.5-3(2.5) mg/3 ml) 3 Ml Ampul.neb, 1 VIAL NEB Q4H PRN for SOB/WHEEZING, (Reported) Allergies Coded Allergies: bee venom protein (honey bee) (Verified Allergy, Unknown, 09/14/20) MEY WARNER DO Mar 06, 2021 19:27
== END 2021-03-06 13:57 | disposition home or self-care (01) | DRG 291 ==
LOC: M ED 10:42 → M ED INP 14:04 → ENRESERV 14:51 → M PCU 15:48 → M MSPAV 03-06 00:45
PROVIDERS: ADMIT Internal Medicine; ATTEND Internal Medicine
DX: I13.0 Hypertensive heart and chronic kidney disease with heart failure and stage 1 through stage 4 chronic kidney disease, or unspecified chronic kidney disease (principal); J96.22 Acute and chronic respiratory failure with hypercapnia; I50.33 Acute on chronic diastolic (congestive) heart failure; I48.20 Chronic atrial fibrillation, unspecified; Z95.0 Presence of cardiac pacemaker; J44.9 Chronic obstructive pulmonary disease, unspecified; Z99.81 Dependence on supplemental oxygen; E11.22 Type 2 diabetes mellitus with diabetic chronic kidney disease; E78.5 Hyperlipidemia, unspecified; N18.30 Chronic kidney disease, stage 3 unspecified; R60.0 Localized edema; Z79.01 Long term (current) use of anticoagulants; Z79.4 Long term (current) use of insulin; Z79.899 Other long term (current) drug therapy; Z91.030 Bee allergy status; Z87.891 Personal history of nicotine dependence

== ENCOUNTER 2021-03-23 08:13 | Emergency (ER) | payer MEDICARE ==
[~2021-03-23] VITALS: Ht 170.2 cm; Wt 84.5 kg
[~2021-03-23 08:13] MED LIST changes: +AMLO2.5T3 PO; +TORS10TA3 PO
[2021-03-23] MEDS ORDERED: dexameTHASONE 20MG/5ML VIAL (J1100 PER 1MG) IV ONE (09:05)
--- NOTE | 2021-03-23 09:26 | REP ---
INDICATION: DYSPNEA/COUGH. COMPARISON: 03/04/2021. TECHNIQUE: Single portable AP view of the chest was performed. FINDINGS: There is no acute infiltrate or pulmonary edema. Mild bibasilar interstitial opacities are stable. The heart is not significantly enlarged. The mediastinal silhouette is unremarkable. The visualized osseous structures are intact. IMPRESSION: No acute pulmonary disease. <Electronically signed by Ron Geller > 03/23/21 0922
[2021-03-23 10:12] LABS: BASO # 0.1 10^3/uL (0.0-0.2); BASO % 0.8 % (0.0-1.0); EOS # 0.5 10^3/uL (0.0-0.5); EOS % 6.1 % (0.0-3.0); HEMATOCRIT 47.1 % (42.0-52.0); HEMOGLOBIN 13.7 g/dl (13.5-17.5); LYMPH # 1.5 10^3/uL (1.5-5.0); LYMPH % 17.6 % (24.0-44.0); MEAN CORPUSCULAR HEMOGLOBIN 27.8 pg (27.0-33.0); MEAN CORPUSCULAR HGB CONC 29.1 g/dl (32.0-36.5); MEAN CORPUSCULAR VOLUME 95.7 fl (80.0-96.0); MONO # 0.8 10^3/uL (0.0-0.8); NEUTROPHILS # 5.5 10^3/uL (1.5-8.5); NEUTROPHILS % 66.3 % (36.0-66.0); PLATELET COUNT, AUTOMATED 234 10^3/uL (150-450); RED BLOOD COUNT 4.92 10^6/uL (4.30-6.10); WHITE BLOOD COUNT 8.3 10^3/uL (4.0-10.0)
[2021-03-23 10:46] LABS: BLOOD UREA NITROGEN 38 MG/DL (7-18); CARBON DIOXIDE LEVEL 44 MEQ/L (21-32); CHLORIDE LEVEL 98 MEQ/L (98-107); GLOMERULAR FILTRATION RATE 57.6 (>42); GLUCOSE, FASTING 66 MG/DL (70-100); NT-PRO BNP 614 PG/ML (<125); POTASSIUM SERUM 4.4 MEQ/L (3.5-5.1); SODIUM LEVEL 139 MEQ/L (136-145)
[2021-03-23 12:00] VITALS: BP 122/70
--- NOTE | 2021-03-24 20:39 | ECGEPIP ---
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
== END 2021-03-23 12:45 | disposition home or self-care (01) ==
LOC: M ED 08:13
DX: J96.11 Chronic respiratory failure with hypoxia (principal); Z99.81 Dependence on supplemental oxygen; I48.91 Unspecified atrial fibrillation; I50.9 Heart failure, unspecified; E11.9 Type 2 diabetes mellitus without complications; I10 Essential (primary) hypertension; E78.5 Hyperlipidemia, unspecified; J44.9 Chronic obstructive pulmonary disease, unspecified; N18.30 Chronic kidney disease, stage 3 unspecified; Z87.891 Personal history of nicotine dependence; Z95.0 Presence of cardiac pacemaker; Z79.01 Long term (current) use of anticoagulants; Z79.4 Long term (current) use of insulin; Z79.899 Other long term (current) drug therapy; Z91.030 Bee allergy status
CPT/HCPCS: 71045; 80048; 82803; 83880; 85025; 93005; 93041; 96374; 99285; J1100

== ENCOUNTER 2021-04-01 01:01 | Inpatient (IN) | payer MEDICARE ==
[~2021-04-01] VITALS: Ht 170.2 cm; Wt 87.5 kg
[2021-04-01] VITALS (15 sets, daily range): BP systolic 95–153; BP diastolic 54–82
[2021-04-01] MEDS ORDERED: IPRATROPIUM 0.5MG/ALBUTEROL 2.5MG INH SOL UD 3ML (DUONEB) NEB PRN (01:10)
[2021-04-01 01:18] LABS: BASO # 0.1 10^3/uL (0.0-0.2); BASO % 0.5 % (0.0-1.0); EOS # 0.5 10^3/uL (0.0-0.5); EOS % 4.7 % (0.0-3.0); HEMATOCRIT 46.6 % (42.0-52.0); HEMOGLOBIN 13.4 g/dl (13.5-17.5); LYMPH # 1.2 10^3/uL (1.5-5.0); LYMPH % 11.8 % (24.0-44.0); MEAN CORPUSCULAR HEMOGLOBIN 27.8 pg (27.0-33.0); MEAN CORPUSCULAR HGB CONC 28.8 g/dl (32.0-36.5); MEAN CORPUSCULAR VOLUME 96.7 fl (80.0-96.0); MONO # 1.2 10^3/uL (0.0-0.8); MONO % 11.5 % (2.0-8.0); NEUTROPHILS # 7.5 10^3/uL (1.5-8.5); PLATELET COUNT, AUTOMATED 273 10^3/uL (150-450); RED BLOOD COUNT 4.82 10^6/uL (4.30-6.10); WHITE BLOOD COUNT 10.5 10^3/uL (4.0-10.0)
[2021-04-01 01:39] LABS: ABG BASE EXCESS 11.3 (-2.0-2.0); ABG HCO3 42.3 MEQ/L (22.0-26.0); ABG STANDARD HCO3 34.9 MEQ/L (22.0-26.0); ABG TOTAL CO2 45.3 MEQ/L (23.0-31.0); ABG pH (ARTERIAL) 7.265 UNITS (7.350-7.450)
[2021-04-01 01:40] LABS: ABG PARTIAL PRESSURE CO2 95.4 mmHg (35.0-45.0)
--- NOTE | 2021-04-01 02:02 | REPVR ---
PROCEDURE INFORMATION: Exam: XR Chest Exam date and time: 04/01/2021 1:27 AM Age: 75 years old Clinical indication: Other: Dyspnea/cough TECHNIQUE: Imaging protocol: XR of the chest. Views: 1 view. COMPARISON: [place] PORTABLE CHEST X-RAY 03/23/2021 9:12 AM FINDINGS: Lungs: Degree of lung inflation is normal. No evidence of pulmonary edema. No focal consolidation or parenchymal lung mass. Pleural spaces: No pneumothorax. Blunted costophrenic angles suggests small pleural effusions Heart/Mediastinum: Cardiac silhouette appears normal. No adenopathy or hilar mass. Bones/joints: Osseous structures show no concerning abnormality. IMPRESSION: Suggestion of small effusions without evidence of pulmonary edema focal pneumonia Electronically signed by: Moiz Vaughan On 04/01/2021 02:01:54 AM
[2021-04-01 02:12] LABS: ALBUMIN 3.1 GM/DL (3.2-5.2); ALT/SGPT 11 U/L (12-78); BILIRUBIN,DIRECT 0.1 MG/DL (0.0-0.2); BILIRUBIN,TOTAL 0.3 MG/DL (0.2-1.0); BLOOD UREA NITROGEN 33 MG/DL (7-18); CALCIUM LEVEL 8.6 MG/DL (8.8-10.2); CARBON DIOXIDE LEVEL 47 MEQ/L (21-32); CHLORIDE LEVEL 99 MEQ/L (98-107); CK-MB VALUE MASS < 1.0 NG/ML (<3.6); CPK CREATINE PHOSPHOKINASE 31 U/L (39-308); CREATININE FOR GFR 1.23 MG/DL (0.70-1.30); GLOMERULAR FILTRATION RATE > 60.0 (>42); GLUCOSE, FASTING 122 MG/DL (70-100); MB/CK RELATIVE INDEX 3.23 (< OR =4); NT-PRO BNP 1100 PG/ML (<125); POTASSIUM SERUM 4.7 MEQ/L (3.5-5.1); SODIUM LEVEL 142 MEQ/L (136-145); THYROID STIMULATING HORMONE 0.869 uIU/ML (0.358-3.740); TOTAL PROTEIN 7.1 GM/DL (6.4-8.2); TROPONIN I < 0.02 NG/ML (< 0.10)
[2021-04-01] MEDS ORDERED: TORS10TA3 PO (02:28)
[2021-04-01] MEDS ORDERED: med rec comment (02:29)
[2021-04-01] MEDS ORDERED: MAALOX 30 ML SUSP *UDC PO PRN (03:00)
[2021-04-01] MEDS ORDERED: ACETAMINOPHEN TAB 650MG DOSE (2X325MG) PO PRN (03:00)
[2021-04-01] MEDS ORDERED: MOM 30ML SUSPENSION UDC PO PRN (03:00)
[2021-04-01] MEDS ORDERED: ALBUTEROL SULFATE 2.5 MG/0.5 ML INH NEB SOLN NEB PRN (03:00)
[2021-04-01] MEDS ORDERED: GLUCOSE 4GM CHEW TABLET PO PRN (03:10)
[2021-04-01] MEDS ORDERED: DEXTROSE 50% 50 ML SYRINGE IV PRN (03:10)
[2021-04-01] MEDS ORDERED: GLUCAGON INJ 1MG VIAL SC PRN (03:10)
[2021-04-01] MEDS ORDERED: FUROSEMIDE 40MG/4ML VIAL (J1940) IV ONE (03:15)
[2021-04-01 03:27] LABS: ABG BASE EXCESS 8.4 (-2.0-2.0); ABG HCO3 39.5 MEQ/L (22.0-26.0); ABG PARTIAL PRESSURE O2 184.3 mmHg (75.0-100.0); ABG STANDARD HCO3 32.2 MEQ/L (22.0-26.0); ABG TOTAL CO2 42.4 MEQ/L (23.0-31.0)
[2021-04-01 03:28] LABS: ABG PARTIAL PRESSURE CO2 94.2 mmHg (35.0-45.0)
--- NOTE | 2021-04-01 03:32 | HPEPDOC ---
A-FIB/CHADSVASC A-FIB History Current/History of A-Fib/PAF?: Yes Current PO Anticoag Therapy: Yes Date of Admission Apr 01, 2021 Date of Service: Apr 01, 2021 History and Physical CHIEF COMPLAINT: Shortness of breath HISTORY OF PRESENT ILLNESS: History is limited and obtained from chart review and Dr Melgar ED physician. Patient is difficult to arouse waking up briefly unable to obtain proper history from patient. 75-year-old male with a history of chronic A. fib on anticoagulation with pacemaker in place, congestive heart failure, diabetes, hypertension, hyperlipidemia, chronic kidney disease, and advanced hypercarbic respiratory failure with underlying oxygen-dependent COPD who presents due to shortness of breath. Per EMS patient was found to be hypoxic in the 60s on-site he was placed on CPAP improved to 70s in the emergency department he was placed on BiPAP and now saturating better low 90s. He was able to tell the ED physician that he had been becoming progressively more short of breath over the past several days but did not seek medical attention. His mentation was waxing and waning when I saw him he was only briefly arousable and wasn't able to answer any of my questions he briefly mumbles and falls back asleep. He does follow basic commands. Chart review reveals patient has had multiple hospital admissions due to similar presentations requiring BiPAP with respiratory failure. Most notable was in August 2020 when he had to be intubated for this reason. I was unable to discuss with him CODE STATUS during this encounter given his mental status however chart review reveals he was full code in the past. PAST MEDICAL/SURGICAL HISTORY: Obtained from chart review: Chronic atrial fibrillation on anticoagulation Pacemaker COPD chronic oxygen dependent 2 L respiratory failure Congestive heart failure with preserved ejection fraction Type 2 diabetes Hypertension Hyperlipidemia Chronic kidney disease Pacemaker placement SOCIAL HISTORY: Unable to obtain due to patient's mentation per chart review reveals he has an extensive smoking history from 45 years FAMILY HISTORY: Unable to obtain due to patient's mentation ALLERGIES: Please see below. REVIEW OF SYSTEMS: Unable to obtain due to patient's mentation HOME MEDICATIONS: Please see below. PHYSICAL EXAMINATION: Constitutional: Somnolent difficult to arouse wakes up briefly makes eye contact and follows basic commands falls back asleep. Elderly-appearing male weak and frail appearing. ENT: Sclera is nonicteric Respiratory: Lungs end expiratory wheezing throughout lung salvador bilaterally no appreciable crackles. BiPAP in place. Not using accessory muscles to breathe. Cardiovascular: Irregular rhythm. No JVD appreciated Gastrointestinal: Abdomen is soft, non distended, non tender, BS present. Musculoskeletal: Very minimal lower extremity edema Neurologic: Unable to assess Mental Status: Waxing and waning mentation briefly arousable Skin: No visible rashes LABORATORY DATA: See below. IMAGING: See chart MICROBIOLOGY: Please see below. ASSESSMENT/PLAN 75-year-old male with advanced respiratory failure presents due to shortness of breath initially found to be hypoxic in the 60s improved BiPAP in the emergency department. Found to have COPD exacerbation. Admitted to the ICU for further medical management. # Acute on chronic hypercapnic hypoxic respiratory failure: Due to Acute on chronic oxygen dependent COPD exacerbation. Requiring BiPAP, I discussed with irrigation pump installer Dr. Porras who will help manage the BiPAP. Admit to ICU. Duonebs as needed and scheduled. Scheduled Symbicort. Follow up blood culture and sputum culture. Incentive spirometry. IV methylprednisolone scheduled. Can have a COPD diet when more awake. Aspiration precautions. Elevate head of bed. IV doxycycline. Critically ill with advanced disease. Prognosis guarded. # CHFpEF: BNP is elevated to 1100 on admission. Patient is clinically close to euvolemic although he does have some small effusions seen on chest x-ray. I ordered 1 dose of IV Lasix and monitor urine output, pt refused paul. IV Lasix as needed. For now I continued his oral torsemide. Most recent echo on March 04 shows a preserved ejection fraction 65% # Acute metabolic encephalopathy: He is moving all 4 extremities and following basic commands. His mentation is likely best explained due to his hypoxic respiratory failure. # Very mild leukocytosis: I don't suspect infection at this time. He is on IV doxycycline for the COPD exacerbation. No other antibiotics for now. Follow up pro-calcitonin. # Chronic atrial fibrillation: Continue eliquis for anticoagulation. Pacemaker in place. Continue sotalol # DM: ISS. Frequent Accu-Cheks. Hypoglycemic precautions. # Hypertension: Continue home meds. Monitor and titrate # Hyperlipidemia: Continue statin # Chronic kidney disease: Close to baseline. Monitor renal function avoid nephrotoxins if possible. # DVT prophylaxis: Eliquis Critical care time 35 minutes A Yousef Hospitalist Vital Signs Vital Signs Date Time Temp Pulse Resp B/P (MAP) Pulse Ox O2 Delivery O2 Flow Rate FiO2 04/01/21 01:56 100 04/01/21 01:56 64 13 04/01/21 01:16 128/82 (97) 78 NIPPV (BIPAP/CPAP) 10.0 Laboratory Data Labs 24H Laboratory Tests 2 04/01/21 01:10: Immature Granulocyte % (Auto) 0.5, Neutrophils (%) (Auto) 71.0H, Lymphocytes (%) (Auto) 11.8L, Monocytes (%) (Auto) 11.5H, Eosinophils (%) (Auto) 4.7H, Basophils (%) (Auto) 0.5, Neutrophils # (Auto) 7.5, Lymphocytes # (Auto) 1.2L, Monocytes # (Auto) 1.2H, Eosinophils # (Auto) 0.5, Basophils # (Auto) 0.1, Nucleated Red Blood Cells % (auto) 0.0, Anion Gap , Glomerular Filtration Rate > 60.0, Calcium Level 8.6L, Total Bilirubin 0.3, Direct Bilirubin 0.1, Aspartate Amino Transf (AST/SGOT) 15, Alanine Aminotransferase (ALT/SGPT) 11L, Alkaline Phosphatase 67, Total Creatine Kinase 31L, Creatine Kinase MB < 1.0, Creatine Kinase MB Relative Index 3.23, Troponin I < 0.02, BG-Yjh-H-Type Natriuretic Peptide 1100H, Total Protein 7.1, Albumin 3.1L, Albumin/Globulin Ratio 0.8, Thyroid Stimulating Hormone (TSH) 0.869 04/01/21 01:30: Blood Gas Bicarbonate Standard 34.9H, Arterial Blood pH 7.265L, Arterial Blood Partial Pressure CO2 95.4*H, Arterial Blood Partial Pressure O2 71.0L, Arterial Blood Total CO2 45.3H, Arterial Blood HCO3 42.3H, Arterial Blood Base Excess 11. 3H, Arterial Blood Oxygen Saturation 93.0L 04/01/21 03:10: Blood Gas Bicarbonate Standard 32.2H, Arterial Blood pH 7.240*L, Arterial Blood Partial Pressure CO2 94.2*H, Arterial Blood Partial Pressure O2 184.3H, Arterial Blood Total CO2 42.4H, Arterial Blood HCO3 39.5H, Arterial Blood Base Excess 8.4H, Arterial Blood Oxygen Saturation 99.0 CBC/BMP Laboratory Tests 04/01/21 01:10 Microbiology Microbiology 04/01/21 Respiratory Virus Panel (PCR) (LILA) - Final, Complete 04/01/21 Blood Culture, Received Pending 04/01/21 Blood Culture, Received Pending Home Medications Scheduled Amlodipine Besylate (Amlodipine Besylate) 2.5 Mg Tablet, 2.5 MG PO DAILY Apixaban (Eliquis) 5 Mg Tablet, 5 MG PO BID Dulaglutide (Trulicity) 0.75 Mg/0.5 Ml Pen.injctr, 0.75 MG SC QWEEK FRIDAY Fluticasone/Umeclidin/Vilanter (Trelegy Ellipta 100-62.5-25) 1 Each Blst.w.dev, 1 PUFF INH DAILY Insulin Glargine,Hum.rec.anlog (Basaglar Kwikpen U-100) 100 Unit/1 Ml Insuln.pen, 35 UNIT SC QHS Latanoprost (Xalatan) 0.005% 2.5ML Drops, 1 DROP OU QHS Metformin HCl (Metformin HCl ER) 500 Mg Tab.er.24h, 1,000 MG PO BIDWM Simvastatin (Simvastatin) 40 Mg Tablet, 40 MG PO QHS Sotalol Hcl (Sotalol) 120 Mg Tablet, 120 MG PO BID Torsemide (Torsemide) 10 Mg Tablet, 10 MG PO DAILY Scheduled PRN Albuterol Sulf (Albuterol Sulfate) 2.5 Mg/3 Ml Vial.neb, 2.5 MG INH Q4H PRN for SOB/WHEEZING Ipratropium [place] (Ipratropium [place]) 15 Ml [place], 2 SPRAY NARES TID PRN for CONGESTION Ipratropium/Albuterol Sulfate (Iprat-Albut 0.5-3(2.5) mg/3 ml) 3 Ml Ampul.neb, 1 VIAL NEB Q4H PRN for SOB/WHEEZING Miscellaneous Medications [med rec comment] unable to speak with pt to verifused last discharge 03/15/21 and external Allergies Coded Allergies: bee venom protein (honey bee) (Verified Allergy, Unknown, 09/14/20) INDY ARREDONDO MD Apr 01, 2021 03:00
[2021-04-01] MEDS: methylPREDNISolone 125MG 2ML VIAL IV SCH ×3 (04:35→20:53)
[2021-04-01] MEDS: DOXYCYCLINE HYCLATE 100 MG in D5W MINI-BAG PLUS 100 ML IV SCH ×2 (05:32→16:55)
[2021-04-01] MEDS ORDERED: PILL CUTTER 1 EACH XX PRN (05:40)
--- NOTE | 2021-04-01 06:10 | ECGEPIP ---
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
[2021-04-01] MEDS: IPRATROPIUM 0.5MG/ALBUTEROL 2.5MG INH SOL UD 3ML (DUONEB) NEB SCH ×3 (07:31→20:45)
[2021-04-01 07:37] LABS: HEMOGLOBIN 12.6 g/dl (13.5-17.5); MEAN CORPUSCULAR HEMOGLOBIN 28.1 pg (27.0-33.0); MEAN CORPUSCULAR HGB CONC 29.3 g/dl (32.0-36.5); PLATELET COUNT, AUTOMATED 231 10^3/uL (150-450); RED BLOOD COUNT 4.48 10^6/uL (4.30-6.10); WHITE BLOOD COUNT 8.6 10^3/uL (4.0-10.0)
[2021-04-01 07:52] LABS: ABG BASE EXCESS 11.1 (-2.0-2.0); ABG HCO3 41.3 MEQ/L (22.0-26.0); ABG O2 SATURATION 95.8 % (95.0-99.0); ABG PARTIAL PRESSURE O2 81.7 mmHg (75.0-100.0); ABG STANDARD HCO3 34.8 MEQ/L (22.0-26.0); ABG pH (ARTERIAL) 7.292 UNITS (7.350-7.450)
[2021-04-01 07:52] LABS: ALBUMIN 2.8 GM/DL (3.2-5.2); ALT/SGPT 11 U/L (12-78); BILIRUBIN,TOTAL 0.3 MG/DL (0.2-1.0); BLOOD UREA NITROGEN 34 MG/DL (7-18); CALCIUM LEVEL 8.9 MG/DL (8.8-10.2); CARBON DIOXIDE LEVEL 43 MEQ/L (21-32); CHLORIDE LEVEL 98 MEQ/L (98-107); CREATININE FOR GFR 1.17 MG/DL (0.70-1.30); GLOMERULAR FILTRATION RATE > 60.0 (>42); GLUCOSE, FASTING 142 MG/DL (70-100); SODIUM LEVEL 138 MEQ/L (136-145); TOTAL PROTEIN 7.5 GM/DL (6.4-8.2)
[2021-04-01 07:55] LABS: ABG PARTIAL PRESSURE CO2 87.4 mmHg (35.0-45.0)
[2021-04-01] MEDS: DOCUSATE SODIUM 100MG CAPSULE PO SCH ×2 (08:20→20:55)
[2021-04-01] MEDS: TORSEMIDE 10 MG TABLET PO SCH (08:20)
[2021-04-01] MEDS: HumaLOG INSULIN (NovoLOG) PER UNIT SC SCH ×4 (08:20→20:55)
[2021-04-01] MEDS: APIXABAN 5 MG TAB (ELIQUIS) PO SCH ×2 (08:20→20:54)
[2021-04-01] MEDS: SOTALOL HCL 80 MG TAB PO SCH ×2 (08:20→20:54)
[2021-04-01] MEDS: PANTOPRAZOLE 40MG VIAL (C9113 PER 1) IV SCH (08:21)
--- NOTE | 2021-04-01 10:37 | CCN ---
CRITICAL CARE NOTE DATE: 04/01/2021 START TIME: 844 STOP TIME: 929 SUBJECTIVE: I attended Phillip Eugenio here in the intensive care unit. The patient has been examined and chart reviewed. I spoke at length with the nurses at the bedside. Through the night, I had spoken with Dr. Gorman from the hospitalist service. In essence, this is a 75-year-old gentleman with known AFib chronically anticoagulated, underlying CHF, diabetes, and essentially end-stage obstructive lung disease oxygen-dependent with both hypoxemic hypercarbic respiratory failure chronically. He was hypoxic at home and put on CPAP. He still had issues in the ER and then was placed on noninvasive BiLevel support. First blood gas had a pH of 7.23 and pO2 of 71. Changes were made with clearly no improvement in his blood gases. Then further changes were made myself and pH now this morning 7.292 with pCO2 down to 87.4, and PaO2 of 81.7. Chest x-ray done in the wee hours of this morning is a poor quality film, but does suggest increased pulmonary vasculature, cardiomegaly, pacemaker in place and cannot rule out chronic interstitial changes in comparison to his prior films. The remainder of his laboratories show white blood cell count down to 8.6, hemoglobin 12.6, platelet count 231,000. Sodium 138, K of 4.0, chloride 98, CO2 of 43, BUN 34, creatinine 1.17. OBJECTIVE: VITAL SIGNS: T-max 98, blood pressure 107 to 150s, heart rate generally in the 60s and 70s with pacer driven. Respiratory rate generally between 18 and 20 without accessory muscle use. GENERAL APPEARANCE: He is easily arousable and awake. CARDIAC: Regular. Peripheral pulses diminished, but palpable. There are chronic venous stasis changes. ABDOMEN: Soft with active bowel sounds with no obvious organomegaly or masses. EXTREMITIES: No cyanosis or clubbing. NEUROLOGIC: As outlined above. ASSESSMENT: The most pressing problems requiring my presence at the bedside 1. Acute on chronic respiratory failure both hypoxemic and hypercapnic. 2. End-stage obstructive lung disease. 3. Congestive heart failure. PLAN: At this point, we will make further adjustments in his noninvasive support. He is making clinical improvement and we will continue as outlined above. I am in agreement with the remainder of his regimen. His medication list has been reviewed. He is on therapy for his lung disease, IV steroids, ulcer and deep vein thrombosis (DVT) prophylaxis as ordered by the primary service. At this point, we will continue as outlined above. He remains marginal at best. I left the bedside at 0930 hours. CRITICAL CARE TIME: 45 minutes delivered at the bedside not including procedures. RITA
--- NOTE | 2021-04-01 10:44 | IPN ---
PROGRESS NOTE DATE: 04/01/2021 SUBJECTIVE: Phillip is admitted to the ICU with acute on chronic respiratory failure. He is getting BiPAP support. Dr. Porras from pulmonary has been consulted and helping manage the case, appreciate his help. The patient had an echocardiogram done in February with unremarkable valves, ejection fraction 60% to 65%. Had a previous echocardiogram in September with similar findings. OBJECTIVE: GENERAL APPEARANCE: He has a BiPAP mask on so speech is limited. He is resting with the BiPAP mask on. VITAL SIGNS: BP is 137/76, pulse 64, respiratory rate 18, 96% O2 saturation. LUNGS: Diffuse rhonchi and wheezes. HEART: Regular rhythm. ABDOMEN: Soft and nontender. EXTREMITIES: Trace to 1+ peripheral edema. IMAGING DATA: Chest x-ray shows bilateral pleural effusions. LABORATORY DATA: White count 8.6, hemoglobin 12.6, platelets 231,000. Sodium 138, potassium 5.0, BUN 34, creatinine 1.7, glucose 142. IMPRESSION/PLAN: 1. Acute on chronic hypercapnic and hypoxic respiratory failure. He is on BiPAP support and has a pulmonary consultation. He is receiving intravenous (IV) doxycycline, nebulized bronchodilator, and steroids. 2. Congestive heart failure (CHF) with preserved ejection fraction. He is on oral torsemide. I cancelled the echocardiogram as he just had this done a few weeks ago. 3. Chronic atrial fibrillation. Continue Eliquis for anticoagulation. 4. Diabetes. Sliding scale insulin with coverage. 5. Hypertension. Continue current regimen. 6. Hyperlipidemia. Continue statin therapy. 7. History of chronic kidney disease. Currently renal function is stable. Daily labs have been ordered.
[2021-04-01] MEDS: SYMBICORT 160/4.5MCG INHALER 6GM INH SCH ×2 (10:54→20:47)
[2021-04-01] MEDS: LATANOPROST 0.005% OPHTH SOLN 2.5 ML OU SCH (20:53)
[2021-04-01] MEDS: SIMVASTATIN 40 MG TAB PO SCH (20:54)
[2021-04-02] VITALS (7 sets, daily range): BP systolic 122–158; BP diastolic 59–70
[2021-04-02] MEDS: IPRATROPIUM 0.5MG/ALBUTEROL 2.5MG INH SOL UD 3ML (DUONEB) NEB SCH ×4 (00:31→19:20)
[2021-04-02] MEDS: DOXYCYCLINE HYCLATE 100 MG in D5W MINI-BAG PLUS 100 ML IV SCH ×2 (04:09→16:11)
[2021-04-02] MEDS: methylPREDNISolone 125MG 2ML VIAL IV SCH (04:10)
[2021-04-02 06:57] LABS: BASO % 0.1 % (0.0-1.0); HEMATOCRIT 38.4 % (42.0-52.0); HEMOGLOBIN 11.8 g/dl (13.5-17.5); LYMPH # 0.6 10^3/uL (1.5-5.0); LYMPH % 6.4 % (24.0-44.0); MEAN CORPUSCULAR HEMOGLOBIN 27.8 pg (27.0-33.0); MEAN CORPUSCULAR HGB CONC 30.7 g/dl (32.0-36.5); MEAN CORPUSCULAR VOLUME 90.6 fl (80.0-96.0); MONO # 0.2 10^3/uL (0.0-0.8); MONO % 2.5 % (2.0-8.0); NEUTROPHILS # 8.8 10^3/uL (1.5-8.5); NEUTROPHILS % 90.3 % (36.0-66.0); PLATELET COUNT, AUTOMATED 246 10^3/uL (150-450); RED BLOOD COUNT 4.24 10^6/uL (4.30-6.10); WHITE BLOOD COUNT 9.8 10^3/uL (4.0-10.0)
[2021-04-02 07:15] LABS: ALBUMIN 2.8 GM/DL (3.2-5.2); BILIRUBIN,TOTAL 0.3 MG/DL (0.2-1.0); CALCIUM LEVEL 8.5 MG/DL (8.8-10.2); CREATININE FOR GFR 1.42 MG/DL (0.70-1.30); POTASSIUM SERUM 4.1 MEQ/L (3.5-5.1); TOTAL PROTEIN 6.5 GM/DL (6.4-8.2)
[2021-04-02] MEDS: SYMBICORT 160/4.5MCG INHALER 6GM INH SCH ×2 (08:05→19:20)
[2021-04-02] MEDS: PANTOPRAZOLE 40MG VIAL (C9113 PER 1) IV SCH (08:12)
[2021-04-02] MEDS: HumaLOG INSULIN (NovoLOG) PER UNIT SC SCH ×4 (08:13→22:26)
[2021-04-02] MEDS: APIXABAN 5 MG TAB (ELIQUIS) PO SCH ×2 (08:14→21:12)
[2021-04-02] MEDS: TORSEMIDE 10 MG TABLET PO SCH (08:14)
[2021-04-02] MEDS: SOTALOL HCL 80 MG TAB PO SCH ×2 (08:14→21:12)
[2021-04-02] MEDS: DOCUSATE SODIUM 100MG CAPSULE PO SCH ×2 (08:14→21:12)
[2021-04-02 08:19] LABS: ABG O2 SATURATION 97.9 % (95.0-99.0); ABG PARTIAL PRESSURE CO2 55.2 mmHg (35.0-45.0); ABG PARTIAL PRESSURE O2 103.5 mmHg (75.0-100.0); ABG STANDARD HCO3 34.8 MEQ/L (22.0-26.0); ABG TOTAL CO2 38.7 MEQ/L (23.0-31.0); ABG pH (ARTERIAL) 7.444 UNITS (7.350-7.450)
--- NOTE | 2021-04-02 09:09 | REP ---
INDICATION: hypoxia COMPARISON: 04/01/2021 TECHNIQUE: Portable AP view of the chest FINDINGS: The mediastinum and cardiac silhouette are stable and within normal limits for portable technique. Lung salvador demonstrate stable chronic changes. No discrete focal consolidation, obvious effusion, or pneumothorax. Skeletal structures intact. IMPRESSION: Stable chronic appearing changes. <Electronically signed by Ramos Deleon > 04/02/21 0905
--- NOTE | 2021-04-02 11:39 | CCN ---
CRITICAL CARE NOTE DATE: 04/02/2021 SUBJECTIVE: The patient was seen at bedside this morning in the intensive care unit. He is tolerating his BiPAP with settings of 16/8, with pressure support of 8, backup rate of 4, Tidal volume of 514 FiO2 of 45% satting at 91%. The patient states that he did well last night and no acute events reported overnight. He had an output of net positive of 145 mL. Blood gas this morning shows pH of 7.4/ 55.2/103.5. His white count has also normalized, currently on day 2 of IV doxy. REVIEW OF SYSTEMS: Constitutional: Denies fever, chills, unintentional weight loss. HEENT: Denies headache, neck pain, vision changes or decreased hearing changes, nasal discharge, nosebleeds, hoarseness, sore throat, lumps or bumps in the neck region. Respiratory: Feels chest congestion and has the urge to cough, however, could not due to being on BiPAP machine. Denies any hemoptysis. Denies shortness of breath or sharp pains with inspiration or coughing. Cardiovascular: Denies any chest pain, palpitations, or any swelling in lower extremities, paroxysmal nocturnal dyspnea or orthopnea. GI: Denies any changes in bowel habits, rectal bleeding, constipation, diarrhea, heartburn. MSK: Does not have any joint effusions or joint tenderness. Neuro: Denies any seizures, numbness, tingling, tremors, dizziness or fainting. Endocrine: Denies any profuse sweating or increase in urination or thirst. OBJECTIVE: Vital signs: Temperature 96.8, pulse 61, respirations 20, blood pressure 122/59, MAP of 80, pulse ox 91% on bilevel settings of 16/8, with pressure support of 8, backup rate of 4, Tidal volume of 514 FiO2 of 45% satting at 91% General: No accessory muscle use, breathing comfortably. Awake, alert, no respiratory distress or use of accessory muscles. HEENT: Sclerae are clear, anicteric. Pupils equal, round, reactive to light. Mucous membranes moist. No lesions seen in tongue. No lesions seen. Tongue is midline. Neck/Lymph: Supple. No tracheal deviation or mass. No evidence of bruits. Unable to palpable lymphadenopathy. Cardiac: Normal S1 and S2. No significant murmurs appreciated, gallops or rubs. PMI is nondisplaced. The patient has chronic venous stasis in the lower extremities. Trace pedal edema bilaterally. Pulmonary: Wheezing throughout/improved. Wheezing throughout. No rhonchi, rales are appreciated. Abdomen: Soft, nontender, nondistended. No hepatosplenomegaly or masses palpated. Extremities: No cyanosis, clubbing, bruising or calf tenderness. Neuro and Psych: A and O x3, appropriate mood and affect. LABS: White count 9.8, H and H 11.8/38.4, platelets 246. Neutrophil percentage 90.3. Sodium 136, potassium 4.1, chloride 94, bicarb 39, BUN and creatinine 47/1.42. Fasting glucose 250. ABG: pH 7.4, pCO2 55.2, pO2 103.5. Blood cultures: No growth x2. IMAGING: Chest x-ray from today, 04/02/21: Stable, chronic appearing changes, no discrete focal consolidation, obvious effusions or pneumothorax. ASSESSMENT AND PLAN: This is a 75-year-old gentleman with a PMHx significant for chronic A. fib on anticoagulation with pacemaker in place, HFpEF, diabetes, hypertension, hyperlipidemia, chronic kidney disease, and chronic hypercarbic and hypoxemic respiratory failure with multiple hospitalizations, one of which required intubation. He's oxygen dependent for his end stage COPD and is on 2L NC, but states that over the last couple of days, he's had progressive SOB. Pt was found to be hypoxic satting in 60s on 2.5L when EMS arrived and was placed on CPAP which brought his sats up to the 70s, but eventually required bilevel to saturate >88%. Pt is subsequently admitted to ICU for further manangement. 1. [id number] hypoxemic and hypercapnic respiratory failure. Patient tolerated bilevel overnight without any acute events. We will try discontinuing BiPAP and transition to NC to titrate oxygen between 88% and 92% with a repeat ABG in two hours. Advance patient's diet as tolerated and encourage out of bed to chair with assist. The patient's lung exam does sound better than yesterday- will decrease his IV Medrol to 40 mg IV q.8h. 2. Heart failure with preserved ejection fraction. Continue with IV Lasix as needed and closely monitor urine output. Continue current medications with p.o. torsemide. 3. End stage obstructive lung disease: Pt is clinically improving. Will decr his dose of solumderol to 40 IV q8h. His meds are reviewed and will continue with symbicort, duonebs, albuterol nebs prn. Will d/c bipap and put on NC to titrate his O2 to keep saturations between 88%-92%. His white count has improved and normalized- currently day 2 of IV doxycylcine. 4. chronic afib- c/w eliquis for AC 5. ANISA- pt was given 1x IV lasix and continued on torsemide 10mg daily. would c/w current regimen and monitor renal function. 6. Diabetes: would consider tighter control on his insulin regimen. currently on a sliding scale 7. Hyperlipidemia -c/w statin 8. DVT prophylaxis with Protonix. 9. Code status: FULL I was physically present for the entire interview and exam I agree with the assessment and plan as outlined above MTDD
--- NOTE | 2021-04-02 11:45 | IPN ---
PROGRESS NOTE DATE: 04/02/2021 SUBJECTIVE: Phillip is seen in the ICU and looks about the same as yesterday. He was a little sleepy when I saw him and he did not fully cooperative with exam. He is on BiPAP, which is being managed by Dr. Porras and appreciate his assistance. Per nursing staff, there are no pressing new medical issues. OBJECTIVE: VITAL SIGNS: Blood pressure 122/59, pulse 60. GENERAL APPEARANCE: He is on BiPAP mask. He was quite drowsy. LUNGS: Decreased breath sounds and few wheezes. HEART: Regular rhythm. ABDOMEN: Soft, obese, and nontender with no masses. EXTREMITIES: Trace peripheral edema. LABORATORY DATA: White count 9.8, hemoglobin 11.8, platelets 246,000. Sodium 136, potassium 4.1, BUN 47, creatinine 1.4, glucose 250. Blood sugars have generally been below 200. ABG 7.44/55/103. IMAGING DATA: Chest x-ray stable. IMPRESSION AND PLAN: 1. Acute on chronic hypercapnic and hypoxic respiratory failure on BiPAP support receiving IV doxycycline, nebulized bronchodilator, and intravenous steroids. BiPAP support is being managed by pulmonary. Appreciate Dr. Porras's assistance. 2. Congestive heart failure with preserved ejection fraction. He is on oral torsemide. His creatinine is rising. His oral intake is poor. I am going to hold this for his torsemide for now and recheck renal function tomorrow. 3. Decreased renal function. Creatinine is increased. I do not think his oral intake is very high. We will hold his torsemide. 4. Chronic atrial fibrillation. Continue Eliquis. 5. Diabetes well-controlled on sliding scale insulin. 6. Hypertension. Blood pressure is well-controlled. 7. Stage III chronic kidney disease. Renal function is declined from baseline. Holding torsemide. Recheck labs tomorrow.
[2021-04-02 11:56] LABS: ABG BASE EXCESS 11.3 (-2.0-2.0); ABG HCO3 37.2 MEQ/L (22.0-26.0); ABG O2 SATURATION 94.1 % (95.0-99.0); ABG PARTIAL PRESSURE CO2 54.9 mmHg (35.0-45.0); ABG PARTIAL PRESSURE O2 70.8 mmHg (75.0-100.0); ABG TOTAL CO2 38.9 MEQ/L (23.0-31.0); ABG pH (ARTERIAL) 7.449 UNITS (7.350-7.450)
[2021-04-02] MEDS: methylPREDNISolone 40MG 1ML VIAL IV SCH ×2 (12:26→20:00)
[2021-04-02] MEDS ORDERED: HumaLOG INSULIN (NovoLOG) PER UNIT SC ONE (17:00)
[2021-04-02] MEDS: SIMVASTATIN 40 MG TAB PO SCH (21:12)
[2021-04-02] MEDS: LATANOPROST 0.005% OPHTH SOLN 2.5 ML OU SCH (21:13)
[2021-04-02] MEDS ORDERED: HumaLOG INSULIN (NovoLOG) PER UNIT SC STA (23:11)
[2021-04-03] VITALS (7 sets, daily range): BP systolic 120–144; BP diastolic 59–88
[2021-04-03] MEDS ORDERED: HumaLOG INSULIN (NovoLOG) PER UNIT SC STA (00:18)
[2021-04-03] MEDS: IPRATROPIUM 0.5MG/ALBUTEROL 2.5MG INH SOL UD 3ML (DUONEB) NEB SCH ×4 (01:48→19:05)
[2021-04-03 04:32] LABS: HEMATOCRIT 40.2 % (42.0-52.0); HEMOGLOBIN 12.3 g/dl (13.5-17.5); MEAN CORPUSCULAR HEMOGLOBIN 27.8 pg (27.0-33.0); MEAN CORPUSCULAR HGB CONC 30.6 g/dl (32.0-36.5); MEAN CORPUSCULAR VOLUME 90.7 fl (80.0-96.0); PLATELET COUNT, AUTOMATED 226 10^3/uL (150-450); RED BLOOD COUNT 4.43 10^6/uL (4.30-6.10); WHITE BLOOD COUNT 11.3 10^3/uL (4.0-10.0)
[2021-04-03] MEDS: methylPREDNISolone 40MG 1ML VIAL IV SCH ×3 (04:42→20:09)
[2021-04-03] MEDS: DOXYCYCLINE HYCLATE 100 MG in D5W MINI-BAG PLUS 100 ML IV SCH ×2 (04:42→16:59)
[2021-04-03 04:52] LABS: BLOOD UREA NITROGEN 59 MG/DL (7-18); CALCIUM LEVEL 8.4 MG/DL (8.8-10.2); CARBON DIOXIDE LEVEL 40 MEQ/L (21-32); CHLORIDE LEVEL 98 MEQ/L (98-107); CREATININE FOR GFR 1.62 MG/DL (0.70-1.30); GLOMERULAR FILTRATION RATE 44.7 (>42); GLUCOSE, FASTING 218 MG/DL (70-100); POTASSIUM SERUM 4.5 MEQ/L (3.5-5.1); SODIUM LEVEL 136 MEQ/L (136-145)
[2021-04-03] MEDS: SYMBICORT 160/4.5MCG INHALER 6GM INH SCH ×2 (07:31→19:05)
[2021-04-03] MEDS: HumaLOG INSULIN (NovoLOG) PER UNIT SC SCH ×4 (07:35→20:10)
[2021-04-03] MEDS: SOTALOL HCL 80 MG TAB PO SCH ×2 (08:32→20:10)
[2021-04-03] MEDS: DOCUSATE SODIUM 100MG CAPSULE PO SCH ×2 (08:33→20:10)
[2021-04-03] MEDS: APIXABAN 5 MG TAB (ELIQUIS) PO SCH ×2 (08:33→20:10)
[2021-04-03] MEDS: PANTOPRAZOLE 40MG VIAL (C9113 PER 1) IV SCH (08:33)
[2021-04-03] MEDS ORDERED: LEVEMIR (INSULIN DETEMIR) 1 UNITS/0.01ML SC SCH (09:00)
--- NOTE | 2021-04-03 09:27 | IPN ---
PROGRESS NOTE DATE: 04/03/2021 SUBJECTIVE: Phillip is seen in the ICU, he is off his BiPAP. He is feeling much better. He is sitting up on the chair, less short of breath. No significant events overnight. OBJECTIVE: VITAL SIGNS: Blood pressure is 139/68, afebrile, 88% on 3 liters. GENERAL APPEARANCE: Alert, conversant. HEENT: Unremarkable. NECK: No JVD. LUNGS: Expiratory wheezes at both bases. HEART: Regular rate and rhythm. ABDOMEN: Obese, soft, nontender. EXTREMITIES: Trace peripheral edema. LABORATORY DATA: White count 11.3 (on steroids), hemoglobin is 12.3, platelets are 226,000. Sodium is 146, potassium is 4.5, BUN 59, creatinine is 1.6. Glucose is 218. IMPRESSION: 1. Acute on chronic hypoxemic and hypercapnic respiratory failure. He has been weaned off his BiPAP, he was on nasal cannula, he is tolerating this well. Continue bronchodilator therapy, IV steroids, empiric antibiotic therapy with Doxycycline. Currently day #3, transfer to the PCU. 2. Congestive heart failure with preserved ejection fraction. He looks like he is getting dry, his renal function is deteriorating, will stop the diuretics for a day. 3. Acute kidney injury. Renal function is continuing to worsen. I think he is prerenal and I am holding his diuretics. 4. Diabetes. Add basal insulin to his sliding scale now that his oral intake is assured. 5. Hyperlipidemia, continue statin therapy. 6. Stage III chronic kidney disease, renal function has declined probably from being dry. Will discontinue his [place] today.
--- NOTE | 2021-04-03 09:31 | IPN ---
PROGRESS NOTE DATE: 04/03/2021 SUBJECTIVE: I again attended Phillip Becker here in the Intensive Care. Patient has been examined and chart reviewed. He is quite comfortable sitting at the bedside on nasal cannula. He said he felt well last night but was placed on BiPAP overnight. T-max overnight 97.7, blood pressure 120 to 140 systolic, heart rate generally in the 60s, respiratory rate 18 to 20 without accessory muscle use. INPUT AND OUTPUT: Ins and outs midnight to midnight 1980 ml in with 2360 ml out. Laboratories have all been reviewed and are in the chart. No blood gas this morning. OBJECTIVE: GENERAL APPEARANCE: He is awake, alert and appropriate. HEENT: Pupils reactive, sclera clear. Trachea is midline. CHEST: Diminished but symmetric expansion. No focal wheeze, rhonchi, crackles or rubs. No other focal adventitious breath sounds are identified. CARDIAC: Generally regular. Peripheral pulses are palpable. No localized edema. ABDOMEN: Soft with active bowel sounds. No convincing organomegaly or mass. EXTREMITIES: No cyanosis or clubbing. NEUROLOGIC: He is awake, alert and appropriate. PSYCH: Normal mood an affect. IMPRESSION: 1. Acute on chronic respiratory failure with hypoxemia and hypercapnia. 2. Advanced obstructive lung disease. 3. Congestive heart failure. RECOMMENDATIONS: At this point, he is back on nasal cannula oxygen, he is quite comfortable. I am in agreement with his regimen. We had cut his Solu-Medrol in half yesterday. Will discontinue it after today and change it to oral prednisone. At this point, I believe it is safe for him to be out of the Intensive Care Unit. Will leave him off noninvasive support. He should have follow-up in the outpatient setting with his usual providers.
[2021-04-03] MEDS: SIMVASTATIN 40 MG TAB PO SCH (20:10)
[2021-04-03] MEDS: LATANOPROST 0.005% OPHTH SOLN 2.5 ML OU SCH (20:10)
[2021-04-04] VITALS (8 sets, daily range): BP systolic 128–172; BP diastolic 60–77
[2021-04-04] MEDS: IPRATROPIUM 0.5MG/ALBUTEROL 2.5MG INH SOL UD 3ML (DUONEB) NEB SCH ×4 (02:34→20:00)
[2021-04-04] MEDS: DOXYCYCLINE HYCLATE 100 MG in D5W MINI-BAG PLUS 100 ML IV SCH (03:08)
[2021-04-04 05:01] LABS: HEMATOCRIT 39.3 % (42.0-52.0); HEMOGLOBIN 11.9 g/dl (13.5-17.5); MEAN CORPUSCULAR HEMOGLOBIN 27.5 pg (27.0-33.0); MEAN CORPUSCULAR HGB CONC 30.3 g/dl (32.0-36.5); MEAN CORPUSCULAR VOLUME 90.8 fl (80.0-96.0); PLATELET COUNT, AUTOMATED 232 10^3/uL (150-450); RED BLOOD COUNT 4.33 10^6/uL (4.30-6.10); WHITE BLOOD COUNT 9.9 10^3/uL (4.0-10.0)
[2021-04-04 05:20] LABS: CALCIUM LEVEL 8.2 MG/DL (8.8-10.2); CREATININE FOR GFR 1.32 MG/DL (0.70-1.30); GLOMERULAR FILTRATION RATE 56.6 (>42); POTASSIUM SERUM 4.8 MEQ/L (3.5-5.1)
[2021-04-04] MEDS: SYMBICORT 160/4.5MCG INHALER 6GM INH SCH ×2 (07:31→20:21)
[2021-04-04] MEDS: predniSONE 20 MG TAB PO SCH (08:42)
[2021-04-04] MEDS: PANTOPRAZOLE 40MG VIAL (C9113 PER 1) IV SCH (08:42)
[2021-04-04] MEDS: DOCUSATE SODIUM 100MG CAPSULE PO SCH ×2 (08:43→21:00)
[2021-04-04] MEDS: APIXABAN 5 MG TAB (ELIQUIS) PO SCH ×2 (08:43→21:00)
[2021-04-04] MEDS: SOTALOL HCL 80 MG TAB PO SCH ×2 (08:43→21:01)
[2021-04-04] MEDS: HumaLOG INSULIN (NovoLOG) PER UNIT SC SCH ×4 (08:44→21:31)
[2021-04-04] MEDS: LEVEMIR (INSULIN DETEMIR) 1 UNITS/0.01ML SC SCH (08:51)
--- NOTE | 2021-04-04 11:07 | IPN ---
PROGRESS NOTE DATE: 04/04/2021 SUBJECTIVE: Phillip looks well. He says he is walking the room. He is dyspneic with exertion, but overall feels improved. He is off his noninvasive ventilatory support. Blood sugars have been elevated with adjusting the dose of his basal insulin. Overall steady progress from admission. PHYSICAL EXAMINATION: VITAL SIGNS: Afebrile. Vital signs stable. O2 saturation 95% on 2 liters. GENERAL: He is alert and conversant. HEENT: Unremarkable. No JVD. LUNGS: Decreased breath sounds but clear. HEART: Regular rhythm. ABDOMEN: Soft, nontender. EXTREMITIES: Trace peripheral edema. LABORATORY DATA: CBC unremarkable. Creatinine is down to 1.32. Blood sugars have been in the 200-300 range. IMPRESSION: 1. Acute on chronic hypercapnic hypoxemic respiratory failure: His I.V. steroids have been changed to p.o. prednisone. He is on Doxycycline empirically as well as bronchodilator therapy; he is currently on his fourth day of Doxycycline. 2. Congestive heart failure with preserved ejection fraction: We held his diuretics in the face of acute kidney injury. No sign of volume overload on exam. 3. Acute kidney injury: Renal function is mildly improved holding his diuretics. We will eventually need to restart these, but I would like to see his renal function approach his baseline first. 4. Diabetes: Increase basal insulin. Continue sliding scale coverage. 5. Stage 3 chronic kidney disease: Daily labs ordered. Acute deterioration from excessive diuresis. Probable discharge day is 04/06/2021.
[2021-04-04] MEDS: DOXYCYCLINE HYCLATE 100MG TABLET PO SCH (21:00)
[2021-04-04] MEDS: SIMVASTATIN 40 MG TAB PO SCH (21:00)
[2021-04-04] MEDS: LATANOPROST 0.005% OPHTH SOLN 2.5 ML OU SCH (21:00)
[2021-04-05] VITALS: BP 136/66
[2021-04-05] MEDS: IPRATROPIUM 0.5MG/ALBUTEROL 2.5MG INH SOL UD 3ML (DUONEB) NEB SCH ×2 (01:01→08:00)
[2021-04-05 04:00] VITALS: BP 120/60
[2021-04-05 06:20] LABS: HEMATOCRIT 41.5 % (42.0-52.0); HEMOGLOBIN 12.5 g/dl (13.5-17.5); MEAN CORPUSCULAR HEMOGLOBIN 27.5 pg (27.0-33.0); MEAN CORPUSCULAR HGB CONC 30.1 g/dl (32.0-36.5); MEAN CORPUSCULAR VOLUME 91.4 fl (80.0-96.0); PLATELET COUNT, AUTOMATED 252 10^3/uL (150-450); RED BLOOD COUNT 4.54 10^6/uL (4.30-6.10); WHITE BLOOD COUNT 10.9 10^3/uL (4.0-10.0)
[2021-04-05 06:40] LABS: BLOOD UREA NITROGEN 37 MG/DL (7-18); CARBON DIOXIDE LEVEL 37 MEQ/L (21-32); CHLORIDE LEVEL 102 MEQ/L (98-107); CREATININE FOR GFR 1.16 MG/DL (0.70-1.30); GLOMERULAR FILTRATION RATE > 60.0 (>42); GLUCOSE, FASTING 156 MG/DL (70-100); POTASSIUM SERUM 4.6 MEQ/L (3.5-5.1); SODIUM LEVEL 141 MEQ/L (136-145)
[2021-04-05 08:30] VITALS: BP 120/56
[2021-04-05] MEDS: SYMBICORT 160/4.5MCG INHALER 6GM INH SCH (08:33)
[2021-04-05] MEDS: DOCUSATE SODIUM 100MG CAPSULE PO SCH (09:00)
[2021-04-05] MEDS: LEVEMIR (INSULIN DETEMIR) 1 UNITS/0.01ML SC SCH (09:03)
[2021-04-05] MEDS: PANTOPRAZOLE 40MG VIAL (C9113 PER 1) IV SCH (09:03)
[2021-04-05] MEDS: APIXABAN 5 MG TAB (ELIQUIS) PO SCH (09:04)
[2021-04-05] MEDS: HumaLOG INSULIN (NovoLOG) PER UNIT SC SCH ×2 (09:04→12:37)
[2021-04-05] MEDS: SOTALOL HCL 80 MG TAB PO SCH (09:04)
[2021-04-05] MEDS: DOXYCYCLINE HYCLATE 100MG TABLET PO SCH (09:04)
[2021-04-05] MEDS: predniSONE 20 MG TAB PO SCH (09:04)
--- NOTE | 2021-04-05 10:46 | IPN ---
PROGRESS NOTE DATE: 04/05/2021 SUBJECTIVE: Phillip again is showing progressive slow improvement in his shortness of breath and is nearing his baseline status, he probably will be ready for discharge tomorrow, less cough and less shortness of breath and is ambulating better. OBJECTIVE: VITAL SIGNS: Blood pressure 120/56, afebrile, O2 saturation 93% on 2 liters (uses 2 liters nasal cannula at home). LUNGS: A few wheezes. HEART: Regular rhythm. ABDOMEN: Soft, nontender. EXTREMITIES: Trace peripheral edema. LABORATORY DATA: CBC unremarkable. Electrolytes are unremarkable. Renal function is improved. Creatinine is down to 1.1. IMPRESSION: 1. Exacerbation of COPD with acute on chronic hypercapnic hypoxic respiratory failure. Continue Doxycycline p.o., oral prednisone and nebulized bronchodilator. 2. Congestive heart failure with preserved ejection fraction. DIURETICS ARE STILL ON HOLD. Probably will need to restart these on discharge. Renal function is improved with holding the diuretics. 3. The rest of his medical problems are stable and he should be able to be discharged tomorrow.
[2021-04-05] MEDS ORDERED: PRED20TA PO (11:03)
[2021-04-05] MEDS ORDERED: DOXY100T PO (11:03)
[2021-04-05 11:59] VITALS: BP 178/70
--- NOTE | 2021-04-05 12:33 | DSES ---
DISCHARGE SUMMARY DATE OF ADMISSION: 04/01/2021 DATE OF DISCHARGE: 04/05/2021 PRINCIPAL DIAGNOSIS: Acute on chronic hypercapnic hypoxemic respiratory failure. SECONDARY DIAGNOSES: 1. Acute kidney injury. 2. Congestive heart failure, preserved ejection fraction. 3. Type 2 diabetes. 4. Stage 3 chronic kidney disease. CLIENT EVALUATOR: Dr. Porras. HISTORY: Patient was admitted on 04/01 with acute respiratory failure. Details are as per history and physical on admission. HOSPITAL COURSE: He was on noninvasive ventilatory support in the ICU for the first two days in the hospital. He was weaned off from this. He did progressively better. We ended up moving him out to PCU. Day of discharge he is really insisting on going home. He feels he is back to baseline. I dictated a note already today which summarizes today's visit. DISPOSITION: He is discharged home in improved and stable condition to follow up with his primary care provider in a week. Activity as tolerated. No added salt diet. MEDICATIONS: Medicines will continue to be: 1. Albuterol two puffs q.4 hours. 2. Amlodipine 2.5 mg a day. 3. Eliquis 5 mg b.i.d. 4. Trulicity 0.75 mg weekly. 5. Trelegy Ellipta 100-62-25 one inhalation daily. 6. Basaglar 35 units daily. 7. Atrovent nasal spray as needed. 8. DuoNeb nebulized q.4 hours p.r.n. 9. Metformin ER 1,000 mg b.i.d. 10. Simvastatin 40 mg daily. 11. Sotalol 120 mg b.i.d. 12. We are restarting torsemide 10 mg daily today. 13. Doxycycline 100 mg b.i.d. for five more days. 14. Prednisone 40 mg daily for five more days. He will need a med profile and close attention to renal function as an outpatient. His diuretics were held during the hospitalization and renal function returned to baseline. Therefore, restarting his metformin. His outpatient provider will need to monitor renal function closely.
== END 2021-04-05 14:05 | disposition home or self-care (01) | DRG 189 ==
LOC: M ED 01:01 → M ED INP 03:00 → ENRESERV 03:35 → M ICU 05:01 → M PCU 04-04 17:28
PROVIDERS: ADMIT Family Medicine; ATTEND Family Medicine
DX: J96.22 Acute and chronic respiratory failure with hypercapnia (principal); G93.41 Metabolic encephalopathy; J44.1 Chronic obstructive pulmonary disease with (acute) exacerbation; I50.32 Chronic diastolic (congestive) heart failure; N17.9 Acute kidney failure, unspecified; I13.0 Hypertensive heart and chronic kidney disease with heart failure and stage 1 through stage 4 chronic kidney disease, or unspecified chronic kidney disease; I48.20 Chronic atrial fibrillation, unspecified; J96.21 Acute and chronic respiratory failure with hypoxia; N18.30 Chronic kidney disease, stage 3 unspecified; E11.22 Type 2 diabetes mellitus with diabetic chronic kidney disease; Z79.899 Other long term (current) drug therapy; Z79.01 Long term (current) use of anticoagulants; Z95.0 Presence of cardiac pacemaker; E78.5 Hyperlipidemia, unspecified; Z99.81 Dependence on supplemental oxygen; Z91.030 Bee allergy status

== ENCOUNTER 2021-04-20 23:58 | Inpatient (IN) | payer MEDICARE ==
[~2021-04-20] VITALS: Ht 170.2 cm; Wt 84.1 kg
[~2021-04-20 23:58] MED LIST changes: +DOXY100T PO; +med rec comment
[2021-04-21] VITALS (21 sets, daily range): BP systolic 115–136; BP diastolic 58–70; O2SAT 82–96
[2021-04-21] MEDS ORDERED: methylPREDNISolone 125MG 2ML VIAL IV ONE (00:40)
[2021-04-21] MEDS ORDERED: COMBIVENT RESPIMAT 100-20MCG INHALER 4GM INH ONE (00:40)
[2021-04-21 01:05] LABS: ABG BASE EXCESS 9.7 (-2.0-2.0); ABG HCO3 37.2 MEQ/L (22.0-26.0); ABG O2 SATURATION 88.9 % (95.0-99.0); ABG PARTIAL PRESSURE O2 53.4 mmHg (75.0-100.0); ABG STANDARD HCO3 33.2 MEQ/L (22.0-26.0); ABG TOTAL CO2 39.1 MEQ/L (23.0-31.0); ABG pH (ARTERIAL) 7.381 UNITS (7.350-7.450)
[2021-04-21 01:10] LABS: ABG PARTIAL PRESSURE CO2 64.1 mmHg (35.0-45.0)
[2021-04-21 01:41] LABS: BASO # 0.1 10^3/uL (0.0-0.2); BASO % 0.5 % (0.0-1.0); EOS # 0.3 10^3/uL (0.0-0.5); EOS % 3.5 % (0.0-3.0); HEMATOCRIT 41.9 % (42.0-52.0); HEMOGLOBIN 12.7 g/dl (13.5-17.5); LYMPH # 1.8 10^3/uL (1.5-5.0); LYMPH % 19.6 % (24.0-44.0); MEAN CORPUSCULAR HEMOGLOBIN 27.7 pg (27.0-33.0); MEAN CORPUSCULAR HGB CONC 30.3 g/dl (32.0-36.5); MEAN CORPUSCULAR VOLUME 91.3 fl (80.0-96.0); MONO # 0.8 10^3/uL (0.0-0.8); MONO % 8.2 % (2.0-8.0); NEUTROPHILS # 6.4 10^3/uL (1.5-8.5); NEUTROPHILS % 67.9 % (36.0-66.0); PLATELET COUNT, AUTOMATED 194 10^3/uL (150-450); RED BLOOD COUNT 4.59 10^6/uL (4.30-6.10); WHITE BLOOD COUNT 9.4 10^3/uL (4.0-10.0)
[2021-04-21 02:27] LABS: ALBUMIN 2.7 GM/DL (3.2-5.2); ALT/SGPT 18 U/L (12-78); BILIRUBIN,DIRECT 0.2 MG/DL (0.0-0.2); BILIRUBIN,TOTAL 0.3 MG/DL (0.2-1.0); BLOOD UREA NITROGEN 33 MG/DL (7-18); CALCIUM LEVEL 8.8 MG/DL (8.8-10.2); CARBON DIOXIDE LEVEL 40 MEQ/L (21-32); CHLORIDE LEVEL 96 MEQ/L (98-107); CK-MB VALUE MASS < 1.0 NG/ML (<3.6); CPK CREATINE PHOSPHOKINASE 25 U/L (39-308); CREATININE FOR GFR 1.38 MG/DL (0.70-1.30); GLOMERULAR FILTRATION RATE 53.8 (>42); GLUCOSE, FASTING 87 MG/DL (70-100); NT-PRO BNP 869 PG/ML (<125); POTASSIUM SERUM 4.1 MEQ/L (3.5-5.1); SODIUM LEVEL 138 MEQ/L (136-145); TOTAL PROTEIN 6.5 GM/DL (6.4-8.2); TROPONIN I < 0.02 NG/ML (< 0.10)
[2021-04-21] MEDS ORDERED: IPRATROPIUM 0.5MG/ALBUTEROL 2.5MG INH SOL UD 3ML (DUONEB) NEB PRN (03:15)
[2021-04-21] MEDS ORDERED: IPRATROPIUM 0.5MG/ALBUTEROL 2.5MG INH SOL UD 3ML (DUONEB) NEB ONE (03:15)
[2021-04-21] MEDS ORDERED: GLUCOSE 4GM CHEW TABLET PO PRN (03:25)
[2021-04-21] MEDS ORDERED: GLUCAGON INJ 1MG VIAL SC PRN (03:25)
[2021-04-21] MEDS ORDERED: DEXTROSE 50% 50 ML SYRINGE IV PRN (03:25)
[2021-04-21] MEDS ORDERED: METF-877 PO (03:29)
[2021-04-21] MEDS: IPRATROPIUM 0.5MG/ALBUTEROL 2.5MG INH SOL UD 3ML (DUONEB) NEB SCH ×6 (03:45→19:44)
--- NOTE | 2021-04-21 03:45 | REPVR ---
PROCEDURE INFORMATION: Exam: XR Chest Exam date and time: 04/21/2021 2:12 AM Age: 75 years old Clinical indication: Other: Dyspnea/cough TECHNIQUE: Imaging protocol: XR of the chest. Views: 1 view. COMPARISON: CR Chest, 1 view 04/02/2021 8:40 AM FINDINGS: Tubes, catheters and devices: A pacemaker from the left is unchanged. Lungs: Coarse interstitium which is similar to the prior study. There are no interval infiltrates. Pulmonary hyperinflation. Pleural spaces: Unremarkable. No pleural effusion. No pneumothorax. Heart/Mediastinum: The heart and mediastinum are unchanged. Bones/joints: Unremarkable. IMPRESSION: Stable chest since 04/02/2021 with suggestion of COPD. No acute interval process is identified. Electronically signed by: Quinten Durant On 04/21/2021 03:44:27 AM
[2021-04-21] MEDS ORDERED: IPRATROPIUM 0.06% NASAL SPRAY 15 ML (ATROVENT) PRN (04:00)
--- NOTE | 2021-04-21 04:04 | HPEPDOC ---
[facility] Medical History & Physical Date of Admission Apr 21, 2021 Date of Service: Apr 21, 2021 Attending Physician: ABHIJIT STEWART MD History and Physical CHIEF COMPLAINT: [75 y/o male c/o increased sob x1 day] HISTORY OF PRESENT ILLNESS: [This is a 75 y/o male with a pmh of chf, a-fib s/p pacemaker, htn, hld, copd on 2L o2 at home, ckd3 and iddm2 who presents to the ED with a cc of worsening sob x1 day. Patient states that his symptoms came on suddenly and have been getting progressively worse. Patient states that he notices his sob is exacerbated by movement and becomes sob even when walking across a room. Patient states that his sob is accompanied by chest pressure and states that he feels there is someone sitting on his chest at times when he is very sob. Patient has also noted some increased lower leg edema. Patient states that his at home nebulizers have provided some relief. Patient at the time of my exam is denying fevers, chills, cough, sputum production, chest pain, abd pain, n/v/d/c, dysuria, calf pain.] PAST MEDICAL HISTORY: 1. [See HPI PAST SURGICAL HISTORY: 1. [Pacemaker placement]. SOCIAL HISTORY: Tobacco use:[Current smoker - 3-4 cigarettes a day.] ETOH: [Denies] Illicit drug use: [Denies] FAMILY HISTORY: Reviewed - none pertinent ALLERGIES: Please see below. REVIEW OF SYSTEMS: CONSTITUTIONAL: [See HPI]. HEENT: [Denies uri type sx]. CARDIOVASCULAR: [See HPI]. RESPIRATORY: [See HPI]. GASTROINTESTINAL: [See HPI]. GENITOURINARY: [See HPI]. SKIN: [Denies rash]. MUSCULOSKELETAL: [Denies acute joint/back pain]. NEUROLOGICAL: [Denies dizziness, syncope, paresthesias]. ENDOCRINE: [Hx of DM]. HEMATOLOGIC/LYMPHATIC: [Denies easy bruising]. HOME MEDICATIONS: Please see below. PHYSICAL EXAMINATION: VITAL SIGNS: Please see below. GENERAL APPEARANCE: [This is a 75 y/o male alert and oriented to all questioning. He becomes somewhat sob after speaking during the interview. Patient does not appear to be in any distress.]. HEENT: [No mass or lesion. EOMI. No scleral icterus. Nares patent. oral mucosa moist.]. CARDIOVASCULAR: [Regular rate, rhythm. No murmurs, rubs, gallops]. LUNGS: [Decreased breath sounds b/l. Scattered wheezing, crackles at b/l bases .]. ABDOMEN: [Soft, nontender]. MUSCULOSKELETAL: [No joint deformity]. EXTREMITIES: [Pitting edema up to b/l knees. No overlying skin changes. Pulses intact.]. NEUROLOGICAL: [Speech clear. A+Ox3. No focal deficits.]. PSYCHIATRIC: [Mood and affect appear appropriate.]. LABORATORY DATA: See below. IMAGING: [CXR: FINDINGS: Tubes, catheters and devices: A pacemaker from the left is unchanged. Lungs: Coarse interstitium which is similar to the prior study. There are no interval infiltrates. Pulmonary hyperinflation. Pleural spaces: Unremarkable. No pleural effusion. No pneumothorax. Heart/Mediastinum: The heart and mediastinum are unchanged. Bones/joints: Unremarkable. IMPRESSION: Stable chest since 04/02/2021 with suggestion of COPD. No acute interval process is identified. ] MICROBIOLOGY: Please see below. ASSESSMENT: [This is a 75 y/o male with a pmh of chf, a-fib s/p pacemaker, htn, hld, copd on 2L o2 at home, ckd3 and iddm2 who presents to the ED with a cc of worsening sob x1 day. Patient states that his symptoms came on suddenly and have been getting progressively worse. Patient states that he notices his sob is exacerbated by movement and becomes sob even when walking across a room. ]. . PLAN: 1. [Acute COPD exacerbation - patient given nebs, 125 solumedrol in the ed - will continue iv steroids on the floor - duonebs scheduled and prn - continue at home o2, can increase as needed and titrate to 88-92 - admit to med surg for tx 2. CHF - patient clinically fluid overloaded. bnp is elevated at >800 - will give one dose of 40mg iv lasix in the ed - will give 40mg lasix bid on the floor - daily weights, is and os 3. A-fib s/p pacer - patient currently rate controlled]. - continue sotalol, eliquis 4. HTN - continue amlodipine 5. HLD - continue simvastatin 6. DM2 - continue at home basal insulin - sliding scale coverage - hypoglycemic protocol 7. Nicotine dependence - patch offered, patient would like to hold off for now 8. CKD3 - cr at baseline DVT prophylaxis - pt on eliquis Vital Signs Vital Signs Date Time Temp Pulse Resp B/P (MAP) Pulse Ox O2 Delivery O2 Flow Rate FiO2 04/21/21 03:00 147/67 (93) 04/21/21 02:58 63 93 Nasal Cannula 2.0 04/20/21 23:59 97.4 24 Laboratory Data Labs 24H Laboratory Tests 2 04/21/21 00:50: Blood Gas Bicarbonate Standard 33.2H, Arterial Blood pH 7.381, Arterial Blood Partial Pressure CO2 64.1*H, Arterial Blood Partial Pressure O2 53.4L, Arterial Blood Total CO2 39.1H, Arterial Blood HCO3 37.2H, Arterial Blood Base Excess 9.7H, Arterial Blood Oxygen Saturation 88.9L 04/21/21 01:32: Immature Granulocyte % (Auto) 0.3, Neutrophils (%) (Auto) 67.9H, Lymphocytes (%) (Auto) 19.6L, Monocytes (%) (Auto) 8.2H, Eosinophils (%) (Auto) 3.5H, Basophils (%) (Auto) 0.5, Neutrophils # (Auto) 6.4, Lymphocytes # (Auto) 1.8, Monocytes # (Auto) 0.8, Eosinophils # (Auto) 0.3, Basophils # (Auto) 0.1, Nucleated Red Blood Cells % (auto) 0.0, Anion Gap 2L, Glomerular Filtration Rate 53.8, Calcium Level 8.8, Total Bilirubin 0.3, Direct Bilirubin 0.2, Aspartate Amino Transf (AST/SGOT) 15, Alanine Aminotransferase (ALT/SGPT) 18, Alkaline Phosphatase 63, Total Creatine Kinase 25L, Creatine Kinase MB < 1.0, Creatine Kinase MB Relative Index 4.00, Troponin I < 0.02, YD-Tdv-S-Type Natriuretic Peptide 869H, Total Protein 6.5, Albumin 2.7L, Albumin/Globulin Ratio 0.7, Thyroid Stimulating Hormone (TSH) 1.060 CBC/BMP Laboratory Tests 04/21/21 01:32 Microbiology Microbiology 04/21/21 Respiratory Virus Panel (PCR) (LILA) - Final, Complete Home Medications Scheduled Amlodipine Besylate (Amlodipine Besylate) 2.5 Mg Tablet, 2.5 MG PO DAILY Apixaban (Eliquis) 5 Mg Tablet, 5 MG PO BID Dulaglutide (Trulicity) 0.75 Mg/0.5 Ml Pen.injctr, 0.75 MG SC QWEEK FRIDAY Fluticasone/Umeclidin/Vilanter (Trelegy Ellipta 100-62.5-25) 1 Each Blst.w.dev, 1 PUFF INH DAILY Insulin Glargine,Hum.rec.anlog (Basaglar Kwikpen U-100) 100 Unit/1 Ml Insuln.pen, 35 UNIT SC QHS Latanoprost (Xalatan) 0.005% 2.5ML Drops, 1 DROP OU QHS Metformin HCl (Metformin HCl) 1,000 Mg Tablet, 1,000 MG PO BID Simvastatin (Simvastatin) 40 Mg Tablet, 40 MG PO QHS Sotalol Hcl (Sotalol) 120 Mg Tablet, 120 MG PO BID Torsemide (Torsemide) 10 Mg Tablet, 10 MG PO DAILY Scheduled PRN Albuterol Sulf (Albuterol Sulfate) 2.5 Mg/3 Ml Vial.neb, 2.5 MG INH Q4H PRN for SOB/WHEEZING Ipratropium [place] (Ipratropium [place]) 15 Ml [place], 2 SPRAY NARES TID PRN for CONGESTION Ipratropium/Albuterol Sulfate (Iprat-Albut 0.5-3(2.5) mg/3 ml) 3 Ml Ampul.neb, 1 VIAL NEB Q4H PRN for SOB/WHEEZING Allergies Coded Allergies: bee venom protein (honey bee) (Verified Allergy, Unknown, 09/14/20) A-FIB/CHADSVASC A-FIB History Current/History of A-Fib/PAF?: Yes Current PO Anticoag Therapy: Yes VENESSA VELASQUEZ Apr 21, 2021 04:04
[2021-04-21] MEDS: DOXYCYCLINE HYCLATE 100 MG in D5W MINI-BAG PLUS 100 ML IV SCH ×2 (04:22→16:29)
[2021-04-21] MEDS ORDERED: FUROSEMIDE 40MG/4ML VIAL (J1940) IV ONE (04:30)
[2021-04-21] MEDS: HumaLOG INSULIN (NovoLOG) PER UNIT SC SCH ×4 (08:19→20:34)
[2021-04-21] MEDS: APIXABAN 5 MG TAB (ELIQUIS) PO SCH ×2 (08:20→20:28)
[2021-04-21 08:28] LABS: INR 1.17; PROTHROMBIN TIME 15.2 SECONDS (12.5-14.3)
[2021-04-21 08:29] LABS: PARTIAL THROMBOPLASTIN TIME 37.1 SECONDS (24.2-38.5)
[2021-04-21] MEDS ORDERED: SOTALOL 40MG PER 1/2 TABLET PO SCH (09:00)
[2021-04-21] MEDS ORDERED: FUROSEMIDE 40 MG TAB PO SCH (09:00)
[2021-04-21] MEDS ORDERED: methylPREDNISolone 125MG 2ML VIAL IV SCH (10:00)
[2021-04-21] MEDS: guaiFENesin ER 600 MG TAB PO SCH ×2 (10:50→20:28)
[2021-04-21] MEDS: predniSONE 20 MG TAB PO SCH (10:51)
--- NOTE | 2021-04-21 13:11 | IPNPDOC ---
Text Note Date of Service The patient was seen on 04/21/21. NOTE Subjective: Patient complains of shortness of breath especially on exertion, his oxygen requirements increased to 6 L via nasal cannula Objective: GENERAL APPEARANCE: NAD HEENT: no scleral icterus, plus JVD, EOMI CARDIOVASCULAR: Irregularly irregular LUNGS: Diminished lung sounds with bilateral rales ABDOMEN: soft & not tender w palpation MUSCULOSKELETAL: no cyanosis, no swelling INTEGUMENT: no generalized pallor NEUROLOGICAL: cranial nerve function from 2-12 intact , follows commands, speech not dysarthric Assessment and plan Patient is 75 years old male with past medical history of chf, a-fib s/p pacemaker, htn, hld, copd on 2L o2 at home, ckd3 and iddm2 who presents to the ED with a cc of worsening sob x1 day. Dyspnea Most likely multifactorial secondary to CHF exacerbation and COPD exacerbation Continue treatment with inhalers, nebulizers and p.o. prednisone We will check ABG Acute diastolic CHF exacerbation I's and O's Lasix IV Cardiac diet Atrial fibrillation Continue Eliquis HTN Continue home meds Blood pressure under control HLD Continue statin DM2 Insulin sliding scale Detemir Nicotine dependence Counseling CKD3 - cr at baseline Continue to monitor DVT prophylaxis - pt on eliquis VS,Fishbone, I+O VS, Fishbone, I+O Laboratory Tests 04/21/21 01:32 Vital Signs Date Time Temp Pulse Resp B/P (MAP) Pulse Ox O2 Delivery O2 Flow Rate FiO2 04/21/21 12:38 88 Nasal Cannula 6.0 04/21/21 08:20 78 127/66 04/20/21 23:59 97.4 24 MEY MALDONADO DO Apr 21, 2021 13:11
[2021-04-21 13:31] LABS: ABG HCO3 36.6 MEQ/L (22.0-26.0); ABG O2 SATURATION 94.1 % (95.0-99.0); ABG PARTIAL PRESSURE O2 73.1 mmHg (75.0-100.0); ABG STANDARD HCO3 31.8 MEQ/L (22.0-26.0); ABG TOTAL CO2 38.7 MEQ/L (23.0-31.0); ABG pH (ARTERIAL) 7.331 UNITS (7.350-7.450)
[2021-04-21 13:36] LABS: ABG PARTIAL PRESSURE CO2 70.8 mmHg (35.0-45.0)
[2021-04-21 15:38] LABS: ABG BASE EXCESS 11.2 (-2.0-2.0); ABG HCO3 40.7 MEQ/L (22.0-26.0); ABG O2 SATURATION 64.4 % (95.0-99.0); ABG STANDARD HCO3 34.1 MEQ/L (22.0-26.0); ABG TOTAL CO2 43.2 MEQ/L (23.0-31.0); ABG pH (ARTERIAL) 7.321 UNITS (7.350-7.450)
[2021-04-21 15:40] LABS: ABG PARTIAL PRESSURE CO2 80.7 mmHg (35.0-45.0)
[2021-04-21 15:41] LABS: ABG PARTIAL PRESSURE O2 34.4 mmHg (75.0-100.0)
[2021-04-21] MEDS: FUROSEMIDE 40 MG TAB PO SCH (16:29)
[2021-04-21 17:55] LABS: ABG BASE EXCESS 9.7 (-2.0-2.0); ABG HCO3 37.8 MEQ/L (22.0-26.0); ABG O2 SATURATION 91.2 % (95.0-99.0); ABG PARTIAL PRESSURE CO2 69.1 mmHg (35.0-45.0); ABG PARTIAL PRESSURE O2 62.4 mmHg (75.0-100.0); ABG STANDARD HCO3 33.3 MEQ/L (22.0-26.0); ABG TOTAL CO2 39.9 MEQ/L (23.0-31.0); ABG pH (ARTERIAL) 7.356 UNITS (7.350-7.450)
[2021-04-21] MEDS: SOTALOL HCL 80 MG TAB PO SCH (20:28)
[2021-04-21] MEDS: LATANOPROST 0.005% OPHTH SOLN 2.5 ML OU SCH (20:28)
[2021-04-21] MEDS: SIMVASTATIN 40 MG TAB PO SCH (20:28)
[2021-04-21] MEDS ORDERED: LEVEMIR (INSULIN DETEMIR) 1 UNITS/0.01ML SC SCH (21:00)
--- NOTE | 2021-04-21 21:26 | ECGEPIP ---
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
[2021-04-22] VITALS (18 sets, daily range): BP systolic 108–163; BP diastolic 56–83; O2SAT 86–93
[2021-04-22] MEDS: FUROSEMIDE 40 MG TAB PO SCH ×4 (00:54→23:19)
[2021-04-22] MEDS: IPRATROPIUM 0.5MG/ALBUTEROL 2.5MG INH SOL UD 3ML (DUONEB) NEB SCH ×7 (00:55→22:59)
[2021-04-22 04:23] LABS: HEMATOCRIT 40.7 % (42.0-52.0); HEMOGLOBIN 12.5 g/dl (13.5-17.5); MEAN CORPUSCULAR HEMOGLOBIN 27.2 pg (27.0-33.0); MEAN CORPUSCULAR HGB CONC 30.7 g/dl (32.0-36.5); MEAN CORPUSCULAR VOLUME 88.7 fl (80.0-96.0); PLATELET COUNT, AUTOMATED 216 10^3/uL (150-450); RED BLOOD COUNT 4.59 10^6/uL (4.30-6.10); WHITE BLOOD COUNT 10.6 10^3/uL (4.0-10.0)
[2021-04-22 04:44] LABS: CALCIUM LEVEL 8.6 MG/DL (8.8-10.2); CREATININE FOR GFR 1.35 MG/DL (0.70-1.30); GLOMERULAR FILTRATION RATE 55.2 (>42); MAGNESIUM LEVEL 1.6 MG/DL (1.8-2.4); POTASSIUM SERUM 4.1 MEQ/L (3.5-5.1)
[2021-04-22] MEDS: DOXYCYCLINE HYCLATE 100 MG in D5W MINI-BAG PLUS 100 ML IV SCH (05:26)
[2021-04-22 07:15] LABS: ABG BASE EXCESS 10.1 (-2.0-2.0); ABG HCO3 34.2 MEQ/L (22.0-26.0); ABG O2 SATURATION 99.2 % (95.0-99.0); ABG PARTIAL PRESSURE CO2 43.4 mmHg (35.0-45.0); ABG PARTIAL PRESSURE O2 170.7 mmHg (75.0-100.0); ABG STANDARD HCO3 33.9 MEQ/L (22.0-26.0); ABG TOTAL CO2 35.5 MEQ/L (23.0-31.0); ABG pH (ARTERIAL) 7.514 UNITS (7.350-7.450)
[2021-04-22] MEDS: HumaLOG INSULIN (NovoLOG) PER UNIT SC SCH ×4 (07:30→21:11)
[2021-04-22] MEDS ORDERED: PILL CUTTER 1 EACH XX PRN (08:05)
[2021-04-22] MEDS: predniSONE 20 MG TAB PO SCH (08:09)
[2021-04-22] MEDS: guaiFENesin ER 600 MG TAB PO SCH ×2 (08:09→21:10)
[2021-04-22] MEDS: APIXABAN 5 MG TAB (ELIQUIS) PO SCH ×2 (08:09→21:09)
[2021-04-22] MEDS ORDERED: MAGNESIUM OXIDE 400MG TAB (MAG-OX) PO ONE (09:00)
[2021-04-22] MEDS: SOTALOL HCL 80 MG TAB PO SCH ×2 (09:40→21:16)
--- NOTE | 2021-04-22 11:21 | IPNPDOC ---
Text Note Date of Service The patient was seen on 04/22/21. NOTE Subjective: Patient stated that he feels better, his breathing improved. Yes terday during daytime patient developed acute respiratory hypercarbic respiratory failure he was transferred to ICU and BiPAP started. Objective: GENERAL APPEARANCE: NAD HEENT: no scleral icterus, plus JVD, EOMI CARDIOVASCULAR: Irregularly irregular LUNGS: Diminished lung sounds with bilateral rales ABDOMEN: soft & not tender w palpation MUSCULOSKELETAL: no cyanosis, no swelling INTEGUMENT: no generalized pallor NEUROLOGICAL: cranial nerve function from 2-12 intact , follows commands, speech not dysarthric Assessment and plan Patient is 75 years old male with past medical history of chf, a-fib s/p pacemaker, htn, hld, copd on 2L o2 at home, ckd3 and iddm2 who presents to the ED with a cc of worsening sob x1 day. Dyspnea/acute respiratory hypercarbic failure Most likely multifactorial secondary to CHF exacerbation and COPD exacerbation Continue treatment with inhalers, nebulizers and p.o. prednisone Resolved after BiPAP, currently patient on 2 L of oxygen Continue tabletop BiPAP overnight. Continue to monitor ABG Acute diastolic CHF exacerbation I's and O's Lasix IV Cardiac diet Atrial fibrillation Continue Eliquis HTN Continue home meds Blood pressure under control HLD Continue statin DM2 Insulin sliding scale Detemir Nicotine dependence Counseling CKD3 - cr at baseline Continue to monitor VS,Fishbone, I+O VS, Fishbone, I+O Laboratory Tests 04/22/21 04:13 Vital Signs Date Time Temp Pulse Resp B/P (MAP) Pulse Ox O2 Delivery O2 Flow Rate FiO2 04/22/21 10:21 97.5 71 16 117/73 (88) 88 Nasal Cannula 2.0 04/22/21 04:00 30 I&O- Last 24 Hours up to 6 AM 04/22/21 06:00 Intake Total 1260 ml Output Total 2075 ml Balance -815 ml MEY MALDONADO DO Apr 22, 2021 11:21
[2021-04-22] MEDS: LEVEMIR (INSULIN DETEMIR) 1 UNITS/0.01ML SC SCH ×2 (12:29→21:10)
[2021-04-22 13:55] LABS: ABG BASE EXCESS 13.6 (-2.0-2.0); ABG HCO3 42.3 MEQ/L (22.0-26.0); ABG PARTIAL PRESSURE CO2 74.3 mmHg (35.0-45.0); ABG PARTIAL PRESSURE O2 83.7 mmHg (75.0-100.0); ABG STANDARD HCO3 37.4 MEQ/L (22.0-26.0); ABG TOTAL CO2 44.6 MEQ/L (23.0-31.0); ABG pH (ARTERIAL) 7.373 UNITS (7.350-7.450)
[2021-04-22 15:49] LABS: ABG BASE EXCESS 5.9 (-2.0-2.0); ABG HCO3 32.8 MEQ/L (22.0-26.0); ABG O2 SATURATION 94.3 % (95.0-99.0); ABG PARTIAL PRESSURE CO2 58.5 mmHg (35.0-45.0); ABG PARTIAL PRESSURE O2 74.4 mmHg (75.0-100.0); ABG STANDARD HCO3 29.7 MEQ/L (22.0-26.0); ABG TOTAL CO2 34.6 MEQ/L (23.0-31.0); ABG pH (ARTERIAL) 7.367 UNITS (7.350-7.450)
[2021-04-22] MEDS: DOXYCYCLINE HYCLATE 100MG TABLET PO SCH (21:09)
[2021-04-22] MEDS: SIMVASTATIN 40 MG TAB PO SCH (21:10)
[2021-04-22] MEDS: LATANOPROST 0.005% OPHTH SOLN 2.5 ML OU SCH (21:11)
[2021-04-23 00:47] VITALS: O2SAT 86
[2021-04-23 01:38] VITALS: O2SAT 89
[2021-04-23] MEDS: IPRATROPIUM 0.5MG/ALBUTEROL 2.5MG INH SOL UD 3ML (DUONEB) NEB SCH ×5 (03:59→20:26)
[2021-04-23 06:00] VITALS: BP 121/73
[2021-04-23 06:10] LABS: HEMATOCRIT 41.5 % (42.0-52.0); HEMOGLOBIN 12.4 g/dl (13.5-17.5); MEAN CORPUSCULAR HEMOGLOBIN 27.2 pg (27.0-33.0); MEAN CORPUSCULAR HGB CONC 29.9 g/dl (32.0-36.5); PLATELET COUNT, AUTOMATED 210 10^3/uL (150-450); RED BLOOD COUNT 4.56 10^6/uL (4.30-6.10); WHITE BLOOD COUNT 11.3 10^3/uL (4.0-10.0)
[2021-04-23 06:31] LABS: CALCIUM LEVEL 8.8 MG/DL (8.8-10.2); CREATININE FOR GFR 1.37 MG/DL (0.70-1.30); GLOMERULAR FILTRATION RATE 54.2 (>42); MAGNESIUM LEVEL 1.9 MG/DL (1.8-2.4)
[2021-04-23] MEDS: HumaLOG INSULIN (NovoLOG) PER UNIT SC SCH ×4 (07:30→20:59)
[2021-04-23] MEDS: LEVEMIR (INSULIN DETEMIR) 1 UNITS/0.01ML SC SCH ×2 (08:16→20:18)
[2021-04-23] MEDS: DOXYCYCLINE HYCLATE 100MG TABLET PO SCH (08:16)
[2021-04-23] MEDS: FUROSEMIDE 40 MG TAB PO SCH ×2 (08:16→16:43)
[2021-04-23] MEDS: APIXABAN 5 MG TAB (ELIQUIS) PO SCH ×2 (08:16→20:19)
[2021-04-23] MEDS: predniSONE 20 MG TAB PO SCH (08:17)
[2021-04-23] MEDS: guaiFENesin ER 600 MG TAB PO SCH ×2 (08:17→20:19)
[2021-04-23] MEDS: SOTALOL HCL 80 MG TAB PO SCH ×2 (08:19→20:21)
[2021-04-23] MEDS ORDERED: LEVEMIR (INSULIN DETEMIR) 1 UNITS/0.01ML SC ONE (08:30)
[2021-04-23 14:00] VITALS: BP 120/75
--- NOTE | 2021-04-23 15:40 | IPNPDOC ---
Text Note Date of Service The patient was seen on 04/23/21. NOTE Subjective: No any acute events overnight. Patient denies fever, chills, brady sea, vomiting diarrhea dysuria Objective: GENERAL APPEARANCE: NAD HEENT: no scleral icterus, plus JVD, EOMI CARDIOVASCULAR: Irregularly irregular LUNGS: Diminished lung sounds with bilateral rales ABDOMEN: soft & not tender w palpation MUSCULOSKELETAL: no cyanosis, no swelling INTEGUMENT: no generalized pallor NEUROLOGICAL: cranial nerve function from 2-12 intact , follows commands, speech not dysarthric Assessment and plan Patient is 75 years old male with past medical history of chf, a-fib s/p pacemaker, htn, hld, copd on 2L o2 at home, ckd3 and iddm2 who presents to the ED with a cc of worsening sob x1 day. Dyspnea/acute respiratory hypercarbic failure Most likely multifactorial secondary to CHF exacerbation and COPD exacerbation Continue treatment with inhalers, nebulizers and p.o. prednisone BiPAP overnight and during the daytime sleep Acute diastolic CHF exacerbation I's and O's Lasix IV Cardiac diet Fluid restriction to 1500 cc Atrial fibrillation Continue Eliquis HTN Continue home meds Blood pressure under control HLD Continue statin DM2 Insulin sliding scale Detemir Nicotine dependence Counseling CKD3 - cr at baseline Continue to monitor VS,Fishbone, I+O VS, Fishbone, I+O Laboratory Tests 04/23/21 05:39 Vital Signs Date Time Temp Pulse Resp B/P (MAP) Pulse Ox O2 Delivery O2 Flow Rate FiO2 04/23/21 14:00 98.3 64 18 120/75 (90) 92 Nasal Cannula 4.0 04/22/21 17:13 30 I&O- Last 24 Hours up to 6 AM 04/23/21 06:00 Intake Total 1380 ml Output Total 3000 ml Balance -1620 ml MEY MALDONADO DO Apr 23, 2021 15:40
[2021-04-23] MEDS ORDERED: HumaLOG INSULIN (NovoLOG) PER UNIT SC ONE (20:10)
[2021-04-23] MEDS: SIMVASTATIN 40 MG TAB PO SCH (20:19)
[2021-04-23] MEDS: LATANOPROST 0.005% OPHTH SOLN 2.5 ML OU SCH (20:21)
[2021-04-24] VITALS: BP 125/74
[2021-04-24] MEDS: IPRATROPIUM 0.5MG/ALBUTEROL 2.5MG INH SOL UD 3ML (DUONEB) NEB SCH ×7 (00:04→23:32)
[2021-04-24] MEDS: FUROSEMIDE 40 MG TAB PO SCH ×4 (00:13→23:13)
[2021-04-24 04:30] VITALS: BP 142/77
[2021-04-24 06:13] LABS: HEMATOCRIT 42.5 % (42.0-52.0); HEMOGLOBIN 12.9 g/dl (13.5-17.5); MEAN CORPUSCULAR HEMOGLOBIN 27.5 pg (27.0-33.0); MEAN CORPUSCULAR HGB CONC 30.4 g/dl (32.0-36.5); MEAN CORPUSCULAR VOLUME 90.6 fl (80.0-96.0); PLATELET COUNT, AUTOMATED 221 10^3/uL (150-450); RED BLOOD COUNT 4.69 10^6/uL (4.30-6.10); WHITE BLOOD COUNT 11.6 10^3/uL (4.0-10.0)
[2021-04-24 06:49] LABS: BLOOD UREA NITROGEN 46 MG/DL (7-18); CALCIUM LEVEL 8.9 MG/DL (8.8-10.2); CARBON DIOXIDE LEVEL 47 MEQ/L (21-32); CHLORIDE LEVEL 94 MEQ/L (98-107); CREATININE FOR GFR 1.32 MG/DL (0.70-1.30); GLOMERULAR FILTRATION RATE 56.6 (>42); GLUCOSE, FASTING 131 MG/DL (70-100); POTASSIUM SERUM 4.4 MEQ/L (3.5-5.1); SODIUM LEVEL 140 MEQ/L (136-145)
[2021-04-24] MEDS: guaiFENesin ER 600 MG TAB PO SCH ×2 (08:29→21:36)
[2021-04-24] MEDS: HumaLOG INSULIN (NovoLOG) PER UNIT SC SCH ×4 (08:30→21:00)
[2021-04-24] MEDS: predniSONE 20 MG TAB PO SCH (08:30)
[2021-04-24] MEDS: APIXABAN 5 MG TAB (ELIQUIS) PO SCH ×2 (08:30→21:36)
[2021-04-24] MEDS: SOTALOL HCL 80 MG TAB PO SCH ×2 (08:31→21:36)
[2021-04-24] MEDS: LEVEMIR (INSULIN DETEMIR) 1 UNITS/0.01ML SC SCH ×2 (08:31→21:36)
--- NOTE | 2021-04-24 12:52 | IPNPDOC ---
Text Note Date of Service The patient was seen on 04/24/21. NOTE Subjective: Patient slept with BiPAP overnight, his oxygen requirements around 10 L. Patient stated that he feels better today and his breathing improved Objective: GENERAL APPEARANCE: NAD HEENT: no scleral icterus, plus JVD, EOMI CARDIOVASCULAR: Irregularly irregular LUNGS: Diminished lung sounds with bilateral rales ABDOMEN: soft & not tender w palpation MUSCULOSKELETAL: no cyanosis, no swelling INTEGUMENT: no generalized pallor NEUROLOGICAL: cranial nerve function from 2-12 intact , follows commands, speech not dysarthric Assessment and plan Patient is 75 years old male with past medical history of chf, a-fib s/p pacemaker, htn, hld, copd on 2L o2 at home, ckd3 and iddm2 who presents to the ED with a cc of worsening sob x1 day. Dyspnea/acute respiratory hypercarbic failure Most likely multifactorial secondary to CHF exacerbation and COPD exacerbation Continue treatment with inhalers, nebulizers and p.o. prednisone BiPAP overnight and during the daytime sleep Patient will have a sleep study on March 27 Acute diastolic CHF exacerbation I's and O's Lasix IV Cardiac diet Fluid restriction to 1500 cc BNP improved and trended down Atrial fibrillation Continue Eliquis HTN Continue home meds Blood pressure under control HLD Continue statin DM2 Insulin sliding scale Detemir Nicotine dependence Counseling CKD3 - cr at baseline Continue to monitor VS,Fishbone, I+O VS, Fishbone, I+O Laboratory Tests 04/24/21 05:31 Vital Signs Date Time Temp Pulse Resp B/P (MAP) Pulse Ox O2 Delivery O2 Flow Rate FiO2 04/24/21 11:05 3.0 04/24/21 08:30 69 141/76 04/24/21 04:51 20 04/24/21 04:30 97.3 93 Nasal Cannula 04/22/21 17:13 30 I&O- Last 24 Hours up to 6 AM 04/24/21 06:00 Intake Total 1920 ml Output Total 3100 ml Balance -1180 ml MEY MALDONADO DO Apr 24, 2021 12:52
[2021-04-24 14:00] VITALS: BP_SYST 117; BP_SYST 121; BP_DIAS 59; BP_DIAS 72
[2021-04-24 20:00] VITALS: BP 135/60
[2021-04-24] MEDS ORDERED: HumaLOG INSULIN (NovoLOG) PER UNIT SC ONE ×2 (21:25→23:00)
[2021-04-24] MEDS: SIMVASTATIN 40 MG TAB PO SCH (21:36)
[2021-04-24] MEDS: LATANOPROST 0.005% OPHTH SOLN 2.5 ML OU SCH (21:37)
[2021-04-24 22:00] VITALS: O2SAT 93
[2021-04-25 03:00] VITALS: O2SAT 95
[2021-04-25] MEDS: IPRATROPIUM 0.5MG/ALBUTEROL 2.5MG INH SOL UD 3ML (DUONEB) NEB SCH ×3 (03:49→11:24)
[2021-04-25 05:17] VITALS: BP 152/79
[2021-04-25 06:34] LABS: HEMATOCRIT 44.4 % (42.0-52.0); HEMOGLOBIN 13.1 g/dl (13.5-17.5); MEAN CORPUSCULAR HEMOGLOBIN 27.1 pg (27.0-33.0); MEAN CORPUSCULAR HGB CONC 29.5 g/dl (32.0-36.5); MEAN CORPUSCULAR VOLUME 91.9 fl (80.0-96.0); PLATELET COUNT, AUTOMATED 228 10^3/uL (150-450); RED BLOOD COUNT 4.83 10^6/uL (4.30-6.10); WHITE BLOOD COUNT 10.8 10^3/uL (4.0-10.0)
[2021-04-25 07:12] LABS: CALCIUM LEVEL 9.5 MG/DL (8.8-10.2); CREATININE FOR GFR 1.35 MG/DL (0.70-1.30); GLOMERULAR FILTRATION RATE 55.2 (>42); MAGNESIUM LEVEL 2.1 MG/DL (1.8-2.4); POTASSIUM SERUM 3.9 MEQ/L (3.5-5.1)
[2021-04-25] MEDS: HumaLOG INSULIN (NovoLOG) PER UNIT SC SCH ×3 (07:30→17:30)
[2021-04-25] MEDS: LEVEMIR (INSULIN DETEMIR) 1 UNITS/0.01ML SC SCH (09:40)
[2021-04-25 09:45] VITALS: BP 108/52
[2021-04-25] MEDS: SOTALOL HCL 80 MG TAB PO SCH (09:45)
[2021-04-25] MEDS: predniSONE 20 MG TAB PO SCH (09:49)
[2021-04-25] MEDS: guaiFENesin ER 600 MG TAB PO SCH (09:49)
[2021-04-25] MEDS: FUROSEMIDE 40 MG TAB PO SCH ×2 (09:49→15:50)
[2021-04-25] MEDS: APIXABAN 5 MG TAB (ELIQUIS) PO SCH (09:50)
[2021-04-25] MEDS ORDERED: PRED10TA2 PO (10:25)
[2021-04-25 14:00] VITALS: BP 142/70
--- NOTE | 2021-04-25 16:06 | DS.PDOC ---
Discharge Summary General Date of Admission Apr 20, 2021 at 23:59 Date of Discharge 04/25/21 Discharge Summary PROCEDURES PERFORMED DURING STAY: [None]. ADMITTING DIAGNOSES: Dyspnea/acute respiratory hypercarbic failure Acute diastolic CHF exacerbation Atrial fibrillation HTN HLD DM2 Nicotine dependence CKD3 DISCHARGE DIAGNOSES: Dyspnea/acute respiratory hypercarbic failure Acute diastolic CHF exacerbation Atrial fibrillation HTN HLD DM2 Nicotine dependence CKD3 COMPLICATIONS/CHIEF COMPLAINT: Difficulty Breathing. HISTORY OF PRESENT ILLNESS: This is a 75 y/o male with a pmh of chf, a-fib s/p pacemaker, htn, hld, copd on 2L o2 at home, ckd3 and iddm2 who presents to the ED with a cc of worsening sob x1 day. Patient states that his symptoms came on suddenly and have been getting progressively worse. Patient states that he notices his sob is exacerbated by movement and becomes sob even when walking across a room. Patient states that his sob is accompanied by chest pressure and states that he feels there is someone sitting on his chest at times when he is very sob. Patient has also noted some increased lower leg edema. Patient states that his at home nebulizers have provided some relief. Patient at the time of my exam is denying fevers, chills, cough, sputum production, chest pain, abd pain, n/v/d/c, dysuria, calf pain. HOSPITAL COURSE: During the hospital stay the following issues were addressed Dyspnea/acute respiratory hypercarbic failure Most likely multifactorial secondary to CHF exacerbation and COPD exacerbation Patient received treatment with inhalers, nebulizers and p.o. prednisone Patient received treatment with BiPAP overnight and during the daytime sleep Patient will have a sleep study on March 27 Acute diastolic CHF exacerbation I's and O's Lasix IV Cardiac diet Fluid restriction to 1500 cc BNP improved and trended down Atrial fibrillation Continue Eliquis HTN Continue home meds Blood pressure under control HLD Continue statin DM2 Insulin sliding scale Detemir Nicotine dependence Counseling CKD3 - cr at baseline Continue to monitor DISCHARGE MEDICATIONS: Please see below. ALLERGIES: Please see below. PHYSICAL EXAMINATION ON DISCHARGE: VITAL SIGNS: Please see below. GENERAL APPEARANCE: NAD HEENT: no scleral icterus, plus JVD, EOMI CARDIOVASCULAR: Irregularly irregular LUNGS: Diminished lung sounds with bilateral rales ABDOMEN: soft & not tender w palpation MUSCULOSKELETAL: no cyanosis, no swelling INTEGUMENT: no generalized pallor NEUROLOGICAL: cranial nerve function from 2-12 intact , follows commands, speech not dysarthric LABORATORY DATA: Please see below. IMAGING: [facility] NAME: MASHA CANO DATE OF : 1945 BUSINESS NUMBER: [id number] AGE: 75 SEX: M REPORT #: [id number] ROOM: [facility] TECHNOLOGIST: TIM DOCTOR: ROBBIN ORDONEZ MD Ordered for Date&Time: 04/21/2136 cc: [~ rep ct ivnm] Service Date&Time: 04/21/21211 This report is in Signed status. Interpretation performed by [facility]. Thank you for having your radiology procedures performed at [facility] RADIOLOGY REPORT Date&Time printed: [~ rep prt dt last] [~ rep prt tm last] Page 2 of 2 [place] [address] RADIOLOGY REPORT This report is in Signed status. Interpretation performed by [facility]. Thank you for having your radiology procedures performed at [facility] RADIOLOGY REPORT Date&Time printed: [~ rep prt dt last] [~ rep prt tm last] Page 1 of 1 PROCEDURE INFORMATION: Exam: XR Chest Exam date and time: 04/21/2021 2:12 AM Age: 75 years old Clinical indication: Other: Dyspnea/cough TECHNIQUE: Imaging protocol: XR of the chest. Views: 1 view. COMPARISON: CR Chest, 1 view 04/02/2021 8:40 AM FINDINGS: Tubes, catheters and devices: A pacemaker from the left is unchanged. Lungs: Coarse interstitium which is similar to the prior study. There are no interval infiltrates. Pulmonary hyperinflation. Pleural spaces: Unremarkable. No pleural effusion. No pneumothorax. Heart/Mediastinum: The heart and mediastinum are unchanged. Bones/joints: Unremarkable. IMPRESSION: Stable chest since 04/02/2021 with suggestion of COPD. No acute interval process is identified. Electronically signed by: Morena Durant On 04/21/2021 03:44:27 AM DD: MORENA DURANT MD 04/21/21211 DT: JAMAR 04/21/21343 DS: ARI 04/21/21343 [~ rep ct labl] PROGNOSIS: Fair ACTIVITY: [As tolerated]. DIET: Diabetes diet DISCHARGE PLAN: Home DISCHARGE INSTRUCTIONS: Follow-up with mechanic chief, have a sleep study ITEMS TO FOLLOWUP ON ON OUTPATIENT: Follow-up with PCP in 3 to 5 days DISCHARGE CONDITION: [Stable]. TIME SPENT ON DISCHARGE: 40minutes. Vital Signs/I&Os Vital Signs Date Time Temp Pulse Resp B/P (MAP) Pulse Ox O2 Delivery O2 Flow Rate FiO2 04/25/21 09:45 64 108/52 04/25/21 09:30 3.0 04/25/21 05:17 97.4 12 96 Nasal Cannula 04/22/21 17:13 30 I&O- Last 24 Hours up to 6 AM 04/25/21 06:00 Intake Total 1320 ml Output Total 1925 ml Balance -605 ml Laboratory Data Labs 24H Laboratory Tests 2 04/24/21 16:35: Bedside Glucose (Misc Panel) 323H 04/24/21 20:17: Bedside Glucose (Misc Panel) 500H 04/24/21 20:29: Bedside Glucose Confirm (Misc) 528*H 04/24/21 22:55: Bedside Glucose (Misc Panel) 435H 04/25/21 02:53: Bedside Glucose (Misc Panel) 110 04/25/21 06:12: Nucleated Red Blood Cells % (auto) 0.0, Anion Gap 0L, Glomerular Filtration Rate 55.2, Calcium Level 9.5, Magnesium Level 2.1 04/25/21 11:27: Bedside Glucose (Misc Panel) 139H CBC/BMP Laboratory Tests 04/25/21 06:12 FSBS Laboratory Tests Test 04/24/21 16:35 04/24/21 20:17 04/24/21 22:55 04/25/21 02:53 Range/Units Bedside Glucose (Misc Panel) 323 500 435 110 83-110 MG/DL Test 04/25/21 11:27 Range/Units Bedside Glucose (Misc Panel) 139 83-110 MG/DL Microbiology Microbiology 04/21/21 Respiratory Virus Panel (PCR) (LILA) - Final, Complete Discharge Medications Scheduled Amlodipine Besylate (Amlodipine Besylate) 2.5 Mg Tablet, 2.5 MG PO DAILY, (Reported) Apixaban (Eliquis) 5 Mg Tablet, 5 MG PO BID, (Reported) Dulaglutide (Trulicity) 0.75 Mg/0.5 Ml Pen.injctr, 0.75 MG SC QWEEK, (Reported) FRIDAY Fluticasone/Umeclidin/Vilanter (Trelegy Ellipta 100-62.5-25) 1 Each Blst.w.dev, 1 PUFF INH DAILY, (Reported) Insulin Glargine,Hum.rec.anlog (Basaglar Kwikpen U-100) 100 Unit/1 Ml Insuln.pen, 35 UNIT SC QHS, (Reported) Latanoprost (Xalatan) 0.005% 2.5ML Drops, 1 DROP OU QHS, (Reported) Metformin HCl (Metformin HCl) 1,000 Mg Tablet, 1,000 MG PO BID, (Reported) Prednisone (Prednisone) 10 Mg Tablet, 10 MG PO TAPER Take 4 tabs daily x 3 days, then 3 tabs daily x 3 days, then 2 tabs daily x 3 days, then 1 tab daily x 3 days and stop Simvastatin (Simvastatin) 40 Mg Tablet, 40 MG PO QHS, (Reported) Sotalol Hcl (Sotalol) 120 Mg Tablet, 120 MG PO BID, (Reported) Torsemide (Torsemide) 10 Mg Tablet, 10 MG PO DAILY, (Reported) Scheduled PRN Albuterol Sulf (Albuterol Sulfate) 2.5 Mg/3 Ml Vial.neb, 2.5 MG INH Q4H PRN for SOB/WHEEZING, (Reported) Ipratropium [place] (Ipratropium [place]) 15 Ml [place], 2 SPRAY NARES TID PRN for CONGESTION, (Reported) Ipratropium/Albuterol Sulfate (Iprat-Albut 0.5-3(2.5) mg/3 ml) 3 Ml Ampul.neb, 1 VIAL NEB Q4H PRN for SOB/WHEEZING, (Reported) Allergies Coded Allergies: bee venom protein (honey bee) (Verified Allergy, Unknown, 09/14/20) MEY MALDONADO DO Apr 25, 2021 16:05
== END 2021-04-25 18:33 | disposition home health service (06) | DRG 291 ==
LOC: M ED 23:58 → M ED INP 23:59 → M MSPAV 04-21 05:20 → M ICU 04-21 15:53 → M MSPAV 04-22 10:20
PROVIDERS: ADMIT General Practice; ATTEND Internal Medicine
DX: I13.0 Hypertensive heart and chronic kidney disease with heart failure and stage 1 through stage 4 chronic kidney disease, or unspecified chronic kidney disease (principal); I50.33 Acute on chronic diastolic (congestive) heart failure; J96.02 Acute respiratory failure with hypercapnia; J44.1 Chronic obstructive pulmonary disease with (acute) exacerbation; I48.91 Unspecified atrial fibrillation; Z95.0 Presence of cardiac pacemaker; Z99.81 Dependence on supplemental oxygen; N18.30 Chronic kidney disease, stage 3 unspecified; E11.22 Type 2 diabetes mellitus with diabetic chronic kidney disease; F17.210 Nicotine dependence, cigarettes, uncomplicated; Z20.822 Contact with and (suspected) exposure to COVID-19; Z79.84 Long term (current) use of oral hypoglycemic drugs; Z79.899 Other long term (current) drug therapy; Z91.030 Bee allergy status; Z79.01 Long term (current) use of anticoagulants; E78.5 Hyperlipidemia, unspecified

== ENCOUNTER → 2021-04-26 | Outpatient (CLI) | payer MEDICARE ==
[~2021-04-26] MED LIST changes: +METF-877 PO
--- NOTE | 2021-04-30 18:08 | SLEEPCENT ---
DATE: 04/26/2021 ORDERED BY: PHU Abbasi Nocturnal polysomnography was performed for the titration of pressure therapy in this patient with obstructive sleep apnea syndrome, apnea-hypopnea index of 6.4. For testing a ResMed Airfit F20 full face mask of medium size was used, 4 cm of water pressure were applied to the circuit as was 2 liters of oxygen, and the lights were extinguished. Seven hours and 46 minutes of data were reviewed. There were 348.5 minutes of sleep identified. Sleep latency was short at 6.5 minutes. REM latency was short at 53.5 minutes. Sleep architecture was good with three REM cycles. Overall sleep efficiency was 76.7%. The electrocardiogram showed a sinus rhythm with an average heart rate of 68 beats per minute. EEG showed normal waveforms for wake and sleep. Respiratory events were fairly well palliated with CPAP at a pressure of +8. The patient continued to display desaturations. Oxygen was increased late in the study but insufficient data was secured to allow any comment. There was scattered limb activity. No other sleep abnormalities in sleep physiology were identified. IMPRESSION: Obstructive sleep apnea syndrome (G47.33). RECOMMENDATION: Nightly use of pressure therapy at 8 cm of water with oxygen bled through the system should improve the quality of the patient's sleep. The flow rate of oxygen is difficult to determine based on these studies. Initiation at 2 liters would be reasonable but close clinical followup and adjustment of oxygen flow rate may be necessary in light of hypoventilatory oxygen desaturations. cc: Marlys Pang MD
== END ==
LOC: M SLEEP 20:00
PROVIDERS: ATTEND Internal Medicine Pulmonary Disease
DX: G47.33 Obstructive sleep apnea (adult) (pediatric) (principal)

== ENCOUNTER 2021-06-07 11:22 | Emergency (ER) | payer MEDICARE ==
[~2021-06-07] VITALS: Ht 170.2 cm; Wt 84.1 kg
[2021-06-07] MEDS ORDERED: METO1TAB87 (11:32)
--- NOTE | 2021-06-07 12:02 | REP ---
INDICATION: DYSPNEA/COUGH. COMPARISON: 04/21/2021. TECHNIQUE: Single portable AP view of the chest was performed. FINDINGS: There is no acute infiltrate or pulmonary edema. There is stable interstitial fibrotic change.. The heart is not significantly enlarged. The mediastinal silhouette is unremarkable. The visualized osseous structures are intact.Left pacemaker is again noted. IMPRESSION: No acute pulmonary disease. <Electronically signed by Ron Geller > 06/07/21 [id number]
[2021-06-07 12:19] LABS: VENOUS BASE EXCESS 16.9 (-2.0-2.0); VENOUS HCO3 46.3 MEQ/L (23.0-27.0); VENOUS O2 SATURATION 98.2 % (60.0-80.0); VENOUS PARTIAL PRESSURE CO2 83.1 mmHg (38.0-50.0); VENOUS PARTIAL PRESSURE O2 123.2 mmHg (30.0-50.0); VENOUS PH 7.364 UNITS (7.330-7.430); VENOUS TOTAL CO2 48.9 MEQ/L (24.0-28.0)
[2021-06-07 12:21] LABS: BASO # 0.1 10^3/uL (0.0-0.2); BASO % 0.7 % (0.0-1.0); EOS # 0.3 10^3/uL (0.0-0.5); EOS % 3.2 % (0.0-3.0); HEMOGLOBIN 11.5 g/dl (13.5-17.5); LYMPH # 1.4 10^3/uL (1.5-5.0); LYMPH % 13.6 % (24.0-44.0); MEAN CORPUSCULAR HGB CONC 29.5 g/dl (32.0-36.5); MEAN CORPUSCULAR VOLUME 91.5 fl (80.0-96.0); MONO # 0.9 10^3/uL (0.0-0.8); MONO % 8.5 % (2.0-8.0); NEUTROPHILS # 7.4 10^3/uL (1.5-8.5); NEUTROPHILS % 73.5 % (36.0-66.0); PLATELET COUNT, AUTOMATED 322 10^3/uL (150-450); RED BLOOD COUNT 4.26 10^6/uL (4.30-6.10)
[2021-06-07] MEDS ORDERED: methylPREDNISolone 125MG 2ML VIAL IV ONE (12:30)
[2021-06-07 13:31] LABS: BLOOD UREA NITROGEN 35 MG/DL (7-18); CHLORIDE LEVEL 93 MEQ/L (98-107); CREATININE FOR GFR 1.17 MG/DL (0.70-1.30); GLOMERULAR FILTRATION RATE > 60.0 (>42); GLUCOSE, FASTING 182 MG/DL (70-100); POTASSIUM SERUM 4.1 MEQ/L (3.5-5.1); SODIUM LEVEL 138 MEQ/L (136-145)
[2021-06-07 13:32] LABS: ALBUMIN 2.5 GM/DL (3.2-5.2); ALT/SGPT 12 IU/L (0-32); BILIRUBIN,DIRECT 0.1 MG/DL (0.0-0.2); BILIRUBIN,TOTAL 0.3 MG/DL (0.2-1.0); CARBON DIOXIDE LEVEL 44 mmol/L (20-29); CK-MB VALUE MASS < 1.0 NG/ML (<3.6); CPK CREATINE PHOSPHOKINASE 34 U/L (39-308); MB/CK RELATIVE INDEX 2.94 (< OR =4)
[2021-06-07 13:33] LABS: NT-PRO BNP 615 PG/ML (<125); THYROXINE (T4) 8.8 UG/DL (4.5-12.0); TROPONIN I < 0.02 NG/ML (< 0.10)
[2021-06-07] MEDS ORDERED: IPRATROPIUM 0.5MG/ALBUTEROL 2.5MG INH SOL UD 3ML (DUONEB) NEB ONE (14:30)
[2021-06-07] MEDS ORDERED: PRED10TA2 PO (15:03)
[2021-06-07 15:36] VITALS: BP 136/66
--- NOTE | 2021-06-07 19:03 | ECGEPIP ---
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
== END 2021-06-07 15:39 | disposition home or self-care (01) ==
LOC: M ED 11:22
DX: J44.1 Chronic obstructive pulmonary disease with (acute) exacerbation (principal); G47.30 Sleep apnea, unspecified; I48.91 Unspecified atrial fibrillation; I50.9 Heart failure, unspecified; E11.9 Type 2 diabetes mellitus without complications; I10 Essential (primary) hypertension; E78.5 Hyperlipidemia, unspecified; N18.30 Chronic kidney disease, stage 3 unspecified; H40.9 Unspecified glaucoma; Z85.118 Personal history of other malignant neoplasm of bronchus and lung; Z95.0 Presence of cardiac pacemaker; F17.200 Nicotine dependence, unspecified, uncomplicated; Z79.4 Long term (current) use of insulin; Z79.01 Long term (current) use of anticoagulants; Z79.899 Other long term (current) drug therapy; Z91.030 Bee allergy status
CPT/HCPCS: 71045; 80048; 80076; 82550; 82553; 82803; 83605; 83880; 84436; 84443; 84484; 85025; 87040; 87798; 93005; 93041; 94640; 99285; J2930

== ENCOUNTER 2021-06-25 13:58 | Emergency (ER) | payer MEDICARE ==
[~2021-06-25] VITALS: Ht 170.2 cm; Wt 84.1 kg
[~2021-06-25 13:58] MED LIST changes: +METO1TAB87
[2021-06-25 14:44] VITALS: BP 125/62
--- NOTE | 2021-06-25 16:02 | REP ---
INDICATION: SOB. COMPARISON: Comparison chest x-ray June 07, 2021. TECHNIQUE: Sitting AP portable chest x-ray. FINDINGS: Bipolar pacemaker remains in place. EKG electrodes are seen. The lungs are well inflated and clear. Pleural angles are sharp. There is mild linear fibrosis in the left base. Heart size is normal. Pulmonary vasculature is not increased. No acute bony abnormality. IMPRESSION: Two lead pacemaker in place. Linear fibrosis left base. Otherwise no acute disease. <Electronically signed by Miguel Lopez > 06/25/21 [id number]
== END 2021-06-25 17:16 | disposition home or self-care (01) ==
LOC: M ED 13:58
DX: J44.1 Chronic obstructive pulmonary disease with (acute) exacerbation (principal); E11.9 Type 2 diabetes mellitus without complications; N18.30 Chronic kidney disease, stage 3 unspecified; Z95.0 Presence of cardiac pacemaker; Z87.891 Personal history of nicotine dependence; Z79.4 Long term (current) use of insulin; Z79.01 Long term (current) use of anticoagulants; Z79.899 Other long term (current) drug therapy; Z91.030 Bee allergy status

== ENCOUNTER 2021-07-04 12:13 | Inpatient (IN) | payer MEDICARE ==
[~2021-07-04] VITALS: Ht 170.2 cm; Wt 81.4 kg
[~2021-07-04 12:13] MED LIST changes: -METO1TAB87; +METO1TAB87 PO
[2021-07-04 12:54] LABS: ABG BASE EXCESS 10.9 (-2.0-2.0); ABG HCO3 42.2 MEQ/L (22.0-26.0); ABG O2 SATURATION 93.6 % (95.0-99.0); ABG PARTIAL PRESSURE O2 78.1 mmHg (75.0-100.0); ABG STANDARD HCO3 34.5 MEQ/L (22.0-26.0); ABG TOTAL CO2 45.1 MEQ/L (23.0-31.0); ABG pH (ARTERIAL) 7.255 UNITS (7.350-7.450)
[2021-07-04 13:01] LABS: ABG PARTIAL PRESSURE CO2 97.2 mmHg (35.0-45.0)
--- NOTE | 2021-07-04 13:17 | REP ---
INDICATION: DYSPNEA/COUGH COMPARISON: 06/25/2021 TECHNIQUE: Portable AP view of the chest FINDINGS: Evaluation is limited by portable technique and underpenetration which accentuate the pulmonary vasculature and interstitial markings. Chronic changes are noted. Subtle superimposed basilar atelectasis/airspace disease (right greater than left) cannot be excluded no focal consolidation. No effusion. No pneumothorax. The mediastinum demonstrates normal cardiac silhouette with stable dual lead pacemaker. Skeletal structures intact. IMPRESSION: Chronic interstitial changes. Cannot exclude subtle basilar atelectasis. <Electronically signed by Ramos Deleon > 07/04/21 [id number]
[2021-07-04 14:09] LABS: BASO # 0.1 10^3/uL (0.0-0.2); BASO % 0.6 % (0.0-1.0); EOS # 0.1 10^3/uL (0.0-0.5); EOS % 1.6 % (0.0-3.0); HEMATOCRIT 42.3 % (42.0-52.0); HEMOGLOBIN 12.3 g/dl (13.5-17.5); LYMPH # 0.7 10^3/uL (1.5-5.0); LYMPH % 7.5 % (24.0-44.0); MEAN CORPUSCULAR HEMOGLOBIN 26.8 pg (27.0-33.0); MEAN CORPUSCULAR HGB CONC 29.1 g/dl (32.0-36.5); MEAN CORPUSCULAR VOLUME 92.2 fl (80.0-96.0); MONO # 0.4 10^3/uL (0.0-0.8); NEUTROPHILS # 7.6 10^3/uL (1.5-8.5); NEUTROPHILS % 85.7 % (36.0-66.0); PLATELET COUNT, AUTOMATED 306 10^3/uL (150-450); RED BLOOD COUNT 4.59 10^6/uL (4.30-6.10); WHITE BLOOD COUNT 8.8 10^3/uL (4.0-10.0)
[2021-07-04 16:01] LABS: ABG BASE EXCESS 9.6 (-2.0-2.0); ABG HCO3 39.6 MEQ/L (22.0-26.0); ABG O2 SATURATION 92.6 % (95.0-99.0); ABG PARTIAL PRESSURE CO2 86.5 mmHg (35.0-45.0); ABG PARTIAL PRESSURE O2 74.3 mmHg (75.0-100.0); ABG STANDARD HCO3 33.2 MEQ/L (22.0-26.0); ABG TOTAL CO2 42.3 MEQ/L (23.0-31.0); ABG pH (ARTERIAL) 7.279 UNITS (7.350-7.450)
[2021-07-04 16:21] LABS: ALBUMIN 2.5 GM/DL (3.2-5.2); ALT/SGPT 15 U/L (12-78); BILIRUBIN,DIRECT 0.1 MG/DL (0.0-0.2); BILIRUBIN,TOTAL 0.4 MG/DL (0.2-1.0); BLOOD UREA NITROGEN 47 MG/DL (7-18); CALCIUM LEVEL 8.7 MG/DL (8.8-10.2); CARBON DIOXIDE LEVEL 41 MEQ/L (21-32); CHLORIDE LEVEL 95 MEQ/L (98-107); CK-MB VALUE MASS < 1.0 NG/ML (<3.6); CPK CREATINE PHOSPHOKINASE 57 U/L (39-308); CREATININE FOR GFR 1.53 MG/DL (0.70-1.30); GLOMERULAR FILTRATION RATE 47.6 (>42); GLUCOSE, FASTING 184 MG/DL (70-100); MB/CK RELATIVE INDEX 1.75 (< OR =4); NT-PRO BNP 2529 PG/ML (<125); POTASSIUM SERUM 6.4 MEQ/L (3.5-5.1); SODIUM LEVEL 135 MEQ/L (136-145); THYROID STIMULATING HORMONE 0.588 uIU/ML (0.358-3.740); THYROXINE (T4) 8.4 UG/DL (4.5-12.0); TROPONIN I < 0.02 NG/ML (< 0.10)
[2021-07-04] MEDS ORDERED: CALCIUM CHLORIDE 10% 1 GM in D5W 100 ML IV ONE (17:00)
[2021-07-04] MEDS ORDERED: METO25TA4 PO (17:08)
[2021-07-04] MEDS ORDERED: HOME MED LIST COMPLETE! XX SCH (17:10)
[2021-07-04] MEDS: COMBIVENT RESPIMAT 100-20MCG INHALER 4GM INH SCH ×3 (17:25→17:48)
[2021-07-04] MEDS ORDERED: GLUCAGON INJ 1MG VIAL SC PRN (17:35)
[2021-07-04] MEDS ORDERED: DEXTROSE 50% 50 ML SYRINGE IV PRN (17:35)
[2021-07-04] MEDS ORDERED: GLUCOSE 4GM CHEW TABLET PO PRN (17:35)
[2021-07-04] MEDS ORDERED: ALBUTEROL 90 MCG/ACT 8GM HFA INHALER INH PRN (17:40)
[2021-07-04] MEDS ORDERED: ACETAMINOPHEN TAB 650MG DOSE (2X325MG) PO PRN (17:40)
[2021-07-04] MEDS ORDERED: HumuLIN R (REGULAR) INSULIN (NovoLIN R) **100U/ML** PER UNIT IV STA (17:42)
[2021-07-04] MEDS ORDERED: DEXTROSE 50% 50 ML SYRINGE IV STA (17:42)
[2021-07-04] MEDS ORDERED: SOD POLYSTYRENE SULFONATE SUSP 15 GM/60 ML UD PO ONE (17:45)
--- NOTE | 2021-07-04 17:52 | ECGEPIP ---
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
--- NOTE | 2021-07-04 17:53 | HPEPDOC ---
General Date of Admission 07/04/21 Date of Service: Jul 04, 2021 Chief Complaint The patient is a 76-year-old male admitted with a reason for visit of Respiratory Distress. Source: Patient Exam Limitations: Clinical conditions History of Present Illness This is a 75 y/o male with a pmh of chf, a-fib s/p pacemaker, htn, hld, copd on 2L o2 at home, ckd3 and iddm2 who presents to the ED with increased shortness of breath. Patient reported that for past few days he has been having increased shortness of breath associated with leg swelling. He denied any cough or sputum production. He denied any fever or chills. When I saw the patient he was on the BiPAP and somnolent, his history is limited due to clinical condition. In ER patient was found to have no leukocytosis, hemoglobin 12.3, potassium 6.4, creatinine 1.53, BNP 2529. ABG showed pH 7.2 PCO2 97.2, chest x-ray negative for acute infiltrate Home Medications Scheduled Apixaban (Eliquis) 5 Mg Tablet, 5 MG PO BID, (Reported) Dulaglutide (Trulicity) 0.75 Mg/0.5 Ml Pen.injctr, 0.75 MG SC QWEEK, (Reported) FRIDAY Fluticasone/Umeclidin/Vilanter (Trelegy Ellipta 100-62.5-25) 1 Each Blst.w.dev, 1 PUFF INH DAILY, (Reported) Insulin Glargine,Hum.rec.anlog (Basaglar Kwikpen U-100) 100 Unit/1 Ml Insuln.pen, 33 UNIT SC QHS, (Reported) Latanoprost (Xalatan) 0.005% 2.5ML Drops, 1 DROP OU QHS, (Reported) Metformin HCl (Metformin HCl) 1,000 Mg Tablet, 1,000 MG PO BID, (Reported) Metoprolol Tartrate (Metoprolol Tartrate) 25 Mg Tablet, 50 MG PO QAM, (Reported) Metoprolol Tartrate (Metoprolol Tartrate) 25 Mg Tablet, 50 MG PO QHS, (Reported) Simvastatin (Simvastatin) 40 Mg Tablet, 40 MG PO QHS, (Reported) Torsemide (Torsemide) 10 Mg Tablet, 10 MG PO BID, (Reported) Scheduled PRN Ipratropium [place] (Ipratropium [place]) 15 Ml [place], 2 SPRAY NARES BID PRN for CONGESTION, (Reported) Ipratropium/Albuterol Sulfate (Iprat-Albut 0.5-3(2.5) mg/3 ml) 3 Ml Ampul.neb, 1 VIAL NEB Q4H PRN for SOB/WHEEZING, (Reported) Allergies Coded Allergies: bee venom protein (honey bee) (Verified Allergy, Unknown, 09/14/20) Past Medical History Medical History Diastolic chf, a-fib s/p pacemaker, htn, hld, copd on 2L o2 at home, ckd3 and iddm2 Surgical History Pacemaker placement Family History Reviewed - none pertinent Social History * Smoker: current smoker Alcohol: Denies Drugs: denies A-FIB/CHADSVASC A-FIB History Current/History of A-Fib/PAF?: Yes Current PO Anticoag Therapy: Yes Review of Systems Constitutional: Reports: Fatigue; Denies: Chills, Fever Eyes: Denies: Pain ENT: Denies: Head Aches Skin: Denies: Rash, Lesions Pulmonary: Reports: Dyspnea Cardiovascular: Denies: Chest Pain Gastrointestinal: Denies: Nausea Genitourinary: Denies: Dysuria, Frequency Hematologic: Denies: Bruising Endocrine: Denies: Polydipsia Musculoskeletal: Denies: Neck Pain Neurological: Denies: Weakness Psych: Reports: Mood Normal Physical Examination General Exam: Positive: Mild Distress; Negative: Alert Eye Exam: Negative: PERRLA ENT Exam: Positive: Atraumatic Neck Exam: Positive: Supple, JVD Chest Exam: Positive: Diminished Heart Exam: Positive: Irregular Rhythm Telemetry: Positive: Atrial fibrillation Abdomen Exam: Positive: Normal bowel sounds Extremity Exam: Positive: Swelling; Negative: Cyanosis Skin Exam: Negative: Breakdown Neuro Exam: Positive: Cranial Nerves 3-12 NL Psych Exam: Positive: Oriented x 3 Vital Signs Vital Signs Date Time Temp Pulse Resp B/P (MAP) Pulse Ox O2 Delivery O2 Flow Rate FiO2 07/04/21 15:15 66 24 96/51 (66) 93 07/04/21 15:00 NIPPV (BIPAP/CPAP) 07/04/21 13:20 50 07/04/21 12:32 97.7 Laboratory Data Labs 24H Laboratory Tests 2 07/04/21 12:47: Blood Gas Bicarbonate Standard 34.5H, Arterial Blood pH 7.255L, Arterial Blood Partial Pressure CO2 97.2*H, Arterial Blood Partial Pressure O2 78.1, Arterial Blood Total CO2 45.1H, Arterial Blood HCO3 42.2H, Arterial Blood Base Excess 10.9H, Arterial Blood Oxygen Saturation 93.6L 07/04/21 13:52: Immature Granulocyte % (Auto) 0.6, Neutrophils (%) (Auto) 85.7H, Lymphocytes (%) (Auto) 7.5L, Monocytes (%) (Auto) 4.0, Eosinophils (%) (Auto) 1.6, Basophils (%) (Auto) 0.6, Neutrophils # (Auto) 7.6, Lymphocytes # (Auto) 0.7L, Monocytes # (Auto) 0.4, Eosinophils # (Auto) 0.1, Basophils # (Auto) 0.1, Nucleated Red Blood Cells % (auto) 0.0, Lactic Acid Level 1.4 07/04/21 15:21: Anion Gap , Glomerular Filtration Rate 47.6, Calcium Level 8.7L, Total Bilirubin 0.4, Direct Bilirubin 0.1, Aspartate Amino Transf (AST/SGOT) 22, Alanine Aminotransferase (ALT/SGPT) 15, Alkaline Phosphatase 71, Total Creatine Kinase 57, Creatine Kinase MB < 1.0, Creatine Kinase MB Relative Index 1.75, Troponin I < 0.02, FS-Zak-O-Type Natriuretic Peptide 2529H, Total Protein 7.0, Albumin 2.5L, Albumin/Globulin Ratio 0.6, Thyroid Stimulating Hormone (TSH) 0.588, Thyroxine (T4) 8.4 07/04/21 15:41: Blood Gas Bicarbonate Standard 33.2H, Arterial Blood pH 7.279L, Arterial Blood Partial Pressure CO2 86.5*H, Arterial Blood Partial Pressure O2 74.3L, Arterial Blood Total CO2 42.3H, Arterial Blood HCO3 39.6H, Arterial Blood Base Excess 9.6H, Arterial Blood Oxygen Saturation 92.6L CBC/BMP Laboratory Tests 07/04/21 13:52 07/04/21 15:21 Microbiology Microbiology 07/04/21 Respiratory Virus Panel (PCR) (LILA) - Final, Complete 07/04/21 Blood Culture, Received Pending 07/04/21 Blood Culture, Received Pending Assessment/Plan This is a 75 y/o male with a pmh of chf, a-fib s/p pacemaker, htn, hld, copd on 2L o2 at home, ckd3 and iddm2 who presents to the ED with increased shortness of breath. Patient reported that for past few days he has been having increased shortness of breath associated with leg swelling. He denied any cough or sputum production. He denied any fever or chills. When I saw the patient he was on the BiPAP and somnolent, his history is limited due to clinical condition. In ER patient was found to have no leukocytosis, hemoglobin 12.3, potassium 6.4, creatinine 1.53, BNP 2529. ABG showed pH 7.2 PCO2 97.2, chest x-ray negative for acute infiltrate Problems (1) Acute hypercapnic respiratory failure Status: Acute Problem Text: Multifactorial secondary to COPD exacerbation and acute diastolic CHF BiPAP for now Continue to monitor ABG Inhalers, IV steroid Lasix IV (2) Diastolic CHF, acute on chronic Status: Acute Problem Text: Lasix IV 40 mg every 8 hour Echo I's and O's Cardiac diet Fluid restriction to 1500 cc (3) Hyperlipidemia Status: Chronic Problem Text: Continue statin (4) Diabetes mellitus Status: Chronic Problem Text: Detemir twice daily Diabetes diet Insulin sliding scale (5) Atrial fibrillation Status: Chronic Problem Text: Continue oral targeted anticoagulation Heart rate under control (6) Sleep apnea Status: Chronic Problem Text: CPAP overnight (7) Hyperkalemia Status: Acute Problem Text: We will recheck potassium level There is possibility for hemolyzing D50, IV insulin Kayexalate Continue to monitor Plan / VTE VTE Prophylaxis Ordered?: Yes MEY MALDONADO DO Jul 04, 2021 17:53
[2021-07-04 19:43] LABS: ABG BASE EXCESS 10.2 (-2.0-2.0); ABG HCO3 40.5 MEQ/L (22.0-26.0); ABG O2 SATURATION 96.1 % (95.0-99.0); ABG STANDARD HCO3 33.9 MEQ/L (22.0-26.0); ABG TOTAL CO2 43.2 MEQ/L (23.0-31.0); ABG pH (ARTERIAL) 7.273 UNITS (7.350-7.450)
[2021-07-04 19:45] LABS: ABG PARTIAL PRESSURE CO2 89.5 mmHg (35.0-45.0)
[2021-07-04] MEDS: IPRATROPIUM 0.5MG/ALBUTEROL 2.5MG INH SOL UD 3ML (DUONEB) NEB SCH (20:00)
[2021-07-04] MEDS: ADVAIR HFA 115/21MCG INHALER INH SCH (20:00)
[2021-07-04] MEDS ORDERED: METOPROLOL TART 25 MG TABLET PO SCH (21:00)
[2021-07-05] VITALS (14 sets, daily range): BP systolic 106–144; BP diastolic 57–90
[2021-07-05] MEDS: methylPREDNISolone 125MG 2ML VIAL IV SCH ×3 (01:34→10:41)
[2021-07-05] MEDS: FUROSEMIDE 40MG/4ML VIAL (J1940) IV SCH ×4 (01:34→17:05)
[2021-07-05] MEDS: HumaLOG INSULIN (NovoLOG) PER UNIT SC SCH ×6 (01:34→20:16)
[2021-07-05] MEDS: LEVEMIR (INSULIN DETEMIR) 1 UNITS/0.01ML SC SCH ×3 (01:36→20:11)
[2021-07-05] MEDS: LATANOPROST 0.005% OPHTH SOLN 2.5 ML OU SCH ×2 (01:49→20:12)
[2021-07-05] MEDS: SIMVASTATIN 40 MG TAB PO SCH ×2 (01:49→20:11)
[2021-07-05] MEDS: APIXABAN 5 MG TAB (ELIQUIS) PO SCH ×3 (01:50→20:11)
[2021-07-05] MEDS: METOPROLOL TART 50 MG TAB PO SCH ×3 (01:50→20:11)
[2021-07-05] MEDS: IPRATROPIUM 0.5MG/ALBUTEROL 2.5MG INH SOL UD 3ML (DUONEB) NEB SCH ×4 (02:00→20:00)
[2021-07-05 02:50] LABS: HEMOGLOBIN 11.6 g/dl (13.5-17.5); MEAN CORPUSCULAR HEMOGLOBIN 26.4 pg (27.0-33.0); MEAN CORPUSCULAR VOLUME 91.1 fl (80.0-96.0); PLATELET COUNT, AUTOMATED 315 10^3/uL (150-450); RED BLOOD COUNT 4.39 10^6/uL (4.30-6.10)
[2021-07-05 03:17] LABS: ALBUMIN 2.5 GM/DL (3.2-5.2); BILIRUBIN,TOTAL 0.4 MG/DL (0.2-1.0); CALCIUM LEVEL 9.8 MG/DL (8.8-10.2); CREATININE FOR GFR 1.73 MG/DL (0.70-1.30); GLOMERULAR FILTRATION RATE 41.3 (>42); MAGNESIUM LEVEL 1.5 MG/DL (1.8-2.4); POTASSIUM SERUM 4.9 MEQ/L (3.5-5.1); TOTAL PROTEIN 7.2 GM/DL (6.4-8.2)
[2021-07-05] MEDS ORDERED: MAG SULF 1GM/100ML (MAG RUN) 1 GM in IV 1 EA IV ONE (03:45)
[2021-07-05] MEDS: ADVAIR HFA 115/21MCG INHALER INH SCH ×2 (07:24→20:10)
[2021-07-05 08:06] LABS: ABG BASE EXCESS 13.5 (-2.0-2.0); ABG HCO3 40.9 MEQ/L (22.0-26.0); ABG O2 SATURATION 93.1 % (95.0-99.0); ABG PARTIAL PRESSURE O2 70.3 mmHg (75.0-100.0); ABG STANDARD HCO3 37.2 MEQ/L (22.0-26.0); ABG TOTAL CO2 42.9 MEQ/L (23.0-31.0); ABG pH (ARTERIAL) 7.406 UNITS (7.350-7.450)
[2021-07-05 08:09] LABS: ABG PARTIAL PRESSURE CO2 66.6 mmHg (35.0-45.0)
[2021-07-05] MEDS: PANTOPRAZOLE 40MG TAB (PROTONIX) PO SCH (08:33)
--- NOTE | 2021-07-05 13:01 | IPNPDOC ---
Text Note Date of Service The patient was seen on 07/05/21. NOTE Subjective: Patient is doing better today, his breathing improved. Objective: GENERAL APPEARANCE: NAD HEENT: no scleral icterus, plus JVD, EOMI CARDIOVASCULAR: Irregularly irregular LUNGS: Diminished lung sounds bilaterally ABDOMEN: soft & not tender w palpation MUSCULOSKELETAL: no cyanosis, no swelling INTEGUMENT: no generalized pallor NEUROLOGICAL: cranial nerve function from 2-12 intact, follows commands, speech not dysarthric Assessment/Plan This is a 75 y/o male with a pmh of chf, a-fib s/p pacemaker, htn, hld, copd on 2L o2 at home, ckd3 and iddm2 who presents to the ED with increased shortness of breath. Patient reported that for past few days he has been having increased shortness of breath associated with leg swelling. He denied any cough or sputum production. He denied any fever or chills. When I saw the patient he was on the BiPAP and somnolent, his history is limited due to clinical condition. In ER patient was found to have no leukocytosis, hemoglobin 12.3, potassium 6.4, creatinine 1.53, BNP 2529. ABG showed pH 7.2 PCO2 97.2, chest x-ray negative for acute infiltrate Problems (1) Acute hypercapnic respiratory failure Multifactorial secondary to COPD exacerbation and acute diastolic CHF ABG in the morning showed significant improvement Inhalers, I changed IV steroids to p.o. prednisone Lasix IV (2) Diastolic CHF, acute on chronic Lasix IV 40 mg every 8 hour Echo pending I's and O's Cardiac diet Fluid restriction to 1500 cc (3) Hyperlipidemia Continue statin (4) Diabetes mellitus Detemir twice daily Diabetes diet Insulin sliding scale (5) Atrial fibrillation Continue oral targeted anticoagulation Heart rate under control (6) Sleep apnea CPAP overnight (7) Hyperkalemia Resolved Plan / VTE VTE Prophylaxis Ordered?: With apixaban VS,Fishbone, I+O VS, Fishbone, I+O Laboratory Tests 07/04/21 13:52 07/04/21 15:21 07/05/21 02:26 Vital Signs Date Time Temp Pulse Resp B/P (MAP) Pulse Ox O2 Delivery O2 Flow Rate FiO2 07/05/21 12:00 5.0 07/05/21 12:00 98.4 67 20 117/63 (81) 90 Nasal Cannula 10/7/21 07:43 40 I&O- Last 24 Hours up to 6 AM 07/05/21 06:00 Intake Total 450 ml Output Total 700 ml Balance -250 ml MEY MALDONADO DO Jul 05, 2021 13:01
[2021-07-06] VITALS: BP 114/58
[2021-07-06] MEDS: FUROSEMIDE 40MG/4ML VIAL (J1940) IV SCH ×3 (00:11→17:25)
[2021-07-06] MEDS: IPRATROPIUM 0.5MG/ALBUTEROL 2.5MG INH SOL UD 3ML (DUONEB) NEB SCH ×4 (01:43→19:34)
[2021-07-06 04:00] VITALS: BP 112/60
[2021-07-06] MEDS: ADVAIR HFA 115/21MCG INHALER INH SCH ×2 (07:27→19:35)
[2021-07-06 07:33] VITALS: BP 126/56
[2021-07-06] MEDS: HumaLOG INSULIN (NovoLOG) PER UNIT SC SCH ×4 (08:35→20:43)
[2021-07-06] MEDS ORDERED: predniSONE 20 MG TAB PO SCH (09:00)
[2021-07-06] MEDS ORDERED: LEVEMIR (INSULIN DETEMIR) 1 UNITS/0.01ML SC ONE (09:00)
[2021-07-06] MEDS ORDERED: LEVEMIR (INSULIN DETEMIR) 1 UNITS/0.01ML SC SCH ×2 (09:00→21:00)
[2021-07-06 09:02] LABS: BASO % 0.3 % (0.0-1.0); EOS # 0.1 10^3/uL (0.0-0.5); EOS % 0.5 % (0.0-3.0); HEMATOCRIT 38.7 % (42.0-52.0); HEMOGLOBIN 11.4 g/dl (13.5-17.5); LYMPH % 20.1 % (24.0-44.0); MEAN CORPUSCULAR HEMOGLOBIN 26.7 pg (27.0-33.0); MEAN CORPUSCULAR HGB CONC 29.5 g/dl (32.0-36.5); MEAN CORPUSCULAR VOLUME 90.6 fl (80.0-96.0); MONO # 0.8 10^3/uL (0.0-0.8); MONO % 8.3 % (2.0-8.0); NEUTROPHILS # 7.1 10^3/uL (1.5-8.5); NEUTROPHILS % 70.2 % (36.0-66.0); PLATELET COUNT, AUTOMATED 365 10^3/uL (150-450); RED BLOOD COUNT 4.27 10^6/uL (4.30-6.10); WHITE BLOOD COUNT 10.1 10^3/uL (4.0-10.0)
[2021-07-06] MEDS: METOPROLOL TART 50 MG TAB PO SCH ×2 (10:13→20:43)
[2021-07-06] MEDS: APIXABAN 5 MG TAB (ELIQUIS) PO SCH ×2 (10:14→20:43)
[2021-07-06] MEDS: predniSONE 10 MG TAB PO SCH (10:14)
[2021-07-06] MEDS: PANTOPRAZOLE 40MG TAB (PROTONIX) PO SCH (10:14)
[2021-07-06 11:54] VITALS: BP 115/55
--- NOTE | 2021-07-06 12:10 | IPNPDOC ---
Text Note Date of Service The patient was seen on 07/06/21. NOTE Subjective: Patient is doing better today, his breathing improved. Patient has a good progress in physical therapy. His oxygen requirements around 4 to 5 L Objective: GENERAL APPEARANCE: NAD HEENT: no scleral icterus, plus JVD, EOMI CARDIOVASCULAR: Irregularly irregular LUNGS: Diminished lung sounds bilaterally ABDOMEN: soft & not tender w palpation MUSCULOSKELETAL: no cyanosis, no swelling INTEGUMENT: no generalized pallor NEUROLOGICAL: cranial nerve function from 2-12 intact, follows commands, speech not dysarthric Assessment/Plan This is a 75 y/o male with a pmh of chf, a-fib s/p pacemaker, htn, hld, copd on 2L o2 at home, ckd3 and iddm2 who presents to the ED with increased shortness of breath. Patient reported that for past few days he has been having increased shortness of breath associated with leg swelling. He denied any cough or sputum production. He denied any fever or chills. When I saw the patient he was on the BiPAP and somnolent, his history is limited due to clinical condition. In ER patient was found to have no leukocytosis, hemoglobin 12.3, potassium 6.4, creatinine 1.53, BNP 2529. ABG showed pH 7.2 PCO2 97.2, chest x-ray negative for acute infiltrate Problems (1) Acute hypercapnic respiratory failure Multifactorial secondary to COPD exacerbation and acute diastolic CHF Inhalers, continue prednisone taper Continue Lasix IV (2) Diastolic CHF, acute on chronic Lasix IV 40 mg every 8 hour Echo pending I's and O's Cardiac diet Fluid restriction to 1500 cc BNP trending down (3) Hyperlipidemia Continue statin (4) Diabetes mellitus Detemir twice daily Diabetes diet Insulin sliding scale (5) Atrial fibrillation Continue oral targeted anticoagulation Heart rate under control (6) Sleep apnea CPAP overnight (7) Hyperkalemia Resolved Plan / VTE VTE Prophylaxis Ordered?: With apixaban VS,Fishbone, I+O VS, Fishbone, I+O Laboratory Tests 07/06/21 08:26 Vital Signs Date Time Temp Pulse Resp B/P (MAP) Pulse Ox O2 Delivery O2 Flow Rate FiO2 07/06/21 10:13 75 126/56 07/06/21 07:33 97.6 21 97 Nasal Cannula 4.0 07/05/21 07:43 40 I&O- Last 24 Hours up to 6 AM 07/06/21 06:00 Intake Total 1180 ml Output Total 2100 ml Balance -920 ml MEY MALDONADO DO Jul 06, 2021 12:10
--- NOTE | 2021-07-06 12:16 | CR.PDOC ---
General Date of Consultation: Jul 06, 2021 Referring Provider: MEY MALDONADO DO Attending Physician: MEY MALDONADO DO Consultation REASON FOR CONSULTATION/CHIEF COMPLAINT: Evaluation for Pap titration. HISTORY OF PRESENT ILLNESS: This is a 76-year-old gentleman with past medical history of congestive heart failure, atrial fibrillation status post pacemaker, hypertension, hyperlipidemia, COPD on 2 L oxygen at home, chronic kidney disease stage III, mild obstructive sleep apnea, diabetes who presented to the hospital on July 04, 2021 with shortness of breath. Upon admission patient was found to have hypoxic and hypercapnic respiratory failure requiring BiPAP and diuresis. He eventually improved. He is currently being treated for decompensated heart failure and COPD exacerbation in the hospital. Reason for consultation was to have patient evaluated for Pap titration upon discharge from the hospital. His stated that patient has episodic oxygen desaturation at night while on CPAP. Patient had a sleep study done back in January 2021 that shows AHI of 6.4/h. He eventually had a titration done back in April that shows optimal CPAP pressure of 8 cm of water. Despite his compliance with CPAP, patient is still having intermittent oxygen desaturation at night requiring BiPAP while in the hospital. He also has recurrent inpatient hospital admission for COPD exacerbation and heart failure. ALLERGIES: Please see below. HOME MEDICATIONS: Please see below. PAST MEDICAL HISTORY: As stated in HPI, patient has history of atrial fibrillation, congestive heart failure, hypertension, hyperlipidemia, COPD, chronic kidney disease stage III, mild obstructive sleep apnea. PAST SURGICAL HISTORY: Pacemaker insertion FAMILY HISTORY: Family history noncontributory to this hospital admission. SOCIAL HISTORY: Patient lives at home with his . He is currently a active smoker. REVIEW OF SYSTEMS: CONSTITUTIONAL: Denies fever, chills, weight loss, fatigue, night sweat. HEENT: Denies sinusitis. CARDIOVASCULAR: Denies chest pain, orthopnea, lower extremity swelling, PND. RESPIRATORY: Admits to shortness of breath, denies cough, wheezing, hemoptysis. GENITOURINARY: Denies dysuria. MUSCULOSKELETAL: Denies myalgia or arthralgia. GASTROINTESTINAL: Denies nausea, vomiting, abdominal pain, diarrhea, blood in stool. SKIN: Denies rash. NEUROLOGICAL: Denies slurred speech or focal weakness. PSYCHIATRIC: Denies depression. ENDOCRINE: Denies weight changes. HEMATOLOGIC/LYMPHATIC: Denies bleeding. ALLERGIC/IMMUNOLOGIC: Denies allergy. PHYSICAL EXAMINATION: VITAL SIGNS: Please see below. GENERAL APPEARANCE: Patient is alert and oriented x3. He is not in any acute distress. HEENT: No evidence of JVD or cervical adenopathy. RESPIRATORY: Left basilar coarse crackle with other areas of the lung that are diminished in sound. CARDIOVASCULAR: Regular S1-S2 with no evidence of murmur. ABDOMEN: Soft nontender with active bowel. EXTREMITIES: No clubbing or lower extremity edema. NEUROLOGICAL: Gross focal neurological examination is intact. PSYCHIATRIC: Alert and oriented x3. LABORATORY DATA: Please see below. ASSESSMENT/PLAN: This is a 76-year-old gentleman with past medical history of congestive heart failure, atrial fibrillation status post pacemaker, hypertension, hyperlipidemia, COPD on 2 L oxygen at home, chronic kidney disease stage III, mild obstructive sleep apnea, diabetes who presented to the hospital on July 04, 2021 with shortness of breath. 1. Decompensated heart failure 2. COPD exacerbation 3. Recurrent hospital admissions due to problem #1 and 2 4. History is of mild SUMI currently on CPAP of 8 5. Chronic hypoxic and hypercapnic respiratory failure Plan: -Current management of decompensated heart failure and COPD exacerbation per patient primary. -Patient will need to have a outpatient Pap titration done upon discharge from [facility]. I believe he would benefit from BiPAP due to chronic hypercapnic respiratory failure secondary from COPD. However, optimal setting has yet to be determined due to lack of Pap titration. Vital Signs/I&O Vital Signs Date Time Temp Pulse Resp B/P (MAP) Pulse Ox O2 Delivery O2 Flow Rate FiO2 07/06/21 10:13 75 126/56 07/06/21 07:33 97.6 21 97 Nasal Cannula 4.0 07/05/21 07:43 40 I&O- Last 24 Hours up to 6 AM 07/06/21 06:00 Intake Total 1180 ml Output Total 2100 ml Balance -920 ml Laboratory Data Labs 24H Laboratory Tests 2 07/05/21 16:45: Bedside Glucose (Misc Panel) 472H 07/05/21 20:09: Bedside Glucose (Misc Panel) 443H 07/06/21 00:29: Bedside Glucose (Misc Panel) 197H 07/06/21 07:33: Bedside Glucose (Misc Panel) 67L 07/06/21 08:26: Immature Granulocyte % (Auto) 0.6, Neutrophils (%) (Auto) 70.2H, Lymphocytes (%) (Auto) 20.1L, Monocytes (%) (Auto) 8.3H, Eosinophils (%) (Auto) 0.5, Basophils (%) (Auto) 0.3, Neutrophils # (Auto) 7.1, Lymphocytes # (Auto) 2.0, Monocytes # (Auto) 0.8, Eosinophils # (Auto) 0.1, Basophils # (Auto) 0.0, Nucleated Red Blood Cells % (auto) 0.2H, CL-Pva-G-Type Natriuretic Peptide 1937H 07/06/21 11:52: Bedside Glucose (Misc Panel) 248H CBC/BMP Laboratory Tests 07/06/21 08:26 Microbiology Microbiology 07/04/21 Respiratory Virus Panel (PCR) (LILA) - Final, Complete 07/04/21 Blood Culture - Preliminary, Resulted No growth after 24 hours . All specim... 07/04/21 Blood Culture - Preliminary, Resulted No growth after 24 hours . All specim... Allergies Coded Allergies: bee venom protein (honey bee) (Verified Allergy, Unknown, 09/14/20) Home Medications Scheduled Apixaban (Eliquis) 5 Mg Tablet, 5 MG PO BID, (Reported) Dulaglutide (Trulicity) 0.75 Mg/0.5 Ml Pen.injctr, 0.75 MG SC QWEEK, (Reported) FRIDAY Fluticasone/Umeclidin/Vilanter (Trelegy Ellipta 100-62.5-25) 1 Each Blst.w.dev, 1 PUFF INH DAILY, (Reported) Insulin Glargine,Hum.rec.anlog (Basaglar Kwikpen U-100) 100 Unit/1 Ml Insuln.pen, 33 UNIT SC QHS, (Reported) Latanoprost (Xalatan) 0.005% 2.5ML Drops, 1 DROP OU QHS, (Reported) Metformin HCl (Metformin HCl) 1,000 Mg Tablet, 1,000 MG PO BID, (Reported) Metoprolol Tartrate (Metoprolol Tartrate) 25 Mg Tablet, 50 MG PO QAM, (Reported) Metoprolol Tartrate (Metoprolol Tartrate) 25 Mg Tablet, 50 MG PO QHS, (Reported) Simvastatin (Simvastatin) 40 Mg Tablet, 40 MG PO QHS, (Reported) Torsemide (Torsemide) 10 Mg Tablet, 10 MG PO BID, (Reported) Scheduled PRN Ipratropium [place] (Ipratropium [place]) 15 Ml [place], 2 SPRAY NARES BID PRN for CONGESTION, (Reported) Ipratropium/Albuterol Sulfate (Iprat-Albut 0.5-3(2.5) mg/3 ml) 3 Ml Ampul.neb, 1 VIAL NEB Q4H PRN for SOB/WHEEZING, (Reported) NABEEL CHRIS MD Jul 06, 2021 12:09
[2021-07-06 12:34] LABS: ALBUMIN 2.6 GM/DL (3.2-5.2); BILIRUBIN,TOTAL 0.2 MG/DL (0.2-1.0); CALCIUM LEVEL 9.4 MG/DL (8.8-10.2); CREATININE FOR GFR 1.67 MG/DL (0.70-1.30); MAGNESIUM LEVEL 1.7 MG/DL (1.8-2.4); POTASSIUM SERUM 4.5 MEQ/L (3.5-5.1)
[2021-07-06 16:31] VITALS: BP 125/58
[2021-07-06 20:00] VITALS: BP 121/61
[2021-07-06] MEDS: LATANOPROST 0.005% OPHTH SOLN 2.5 ML OU SCH (20:42)
[2021-07-06] MEDS: SIMVASTATIN 40 MG TAB PO SCH (20:43)
[2021-07-07] VITALS: BP 144/65
[2021-07-07] MEDS: FUROSEMIDE 40MG/4ML VIAL (J1940) IV SCH ×3 (00:58→16:43)
[2021-07-07] MEDS: IPRATROPIUM 0.5MG/ALBUTEROL 2.5MG INH SOL UD 3ML (DUONEB) NEB SCH ×3 (02:04→16:14)
[2021-07-07 04:00] VITALS: BP 123/56
[2021-07-07 06:21] LABS: BASO % 0.4 % (0.0-1.0); EOS # 0.1 10^3/uL (0.0-0.5); HEMATOCRIT 37.5 % (42.0-52.0); HEMOGLOBIN 11.1 g/dl (13.5-17.5); LYMPH # 1.8 10^3/uL (1.5-5.0); LYMPH % 22.2 % (24.0-44.0); MEAN CORPUSCULAR HEMOGLOBIN 26.6 pg (27.0-33.0); MEAN CORPUSCULAR HGB CONC 29.6 g/dl (32.0-36.5); MEAN CORPUSCULAR VOLUME 89.9 fl (80.0-96.0); MONO # 0.8 10^3/uL (0.0-0.8); MONO % 9.6 % (2.0-8.0); NEUTROPHILS # 5.3 10^3/uL (1.5-8.5); NEUTROPHILS % 66.4 % (36.0-66.0); PLATELET COUNT, AUTOMATED 337 10^3/uL (150-450); RED BLOOD COUNT 4.17 10^6/uL (4.30-6.10); WHITE BLOOD COUNT 7.9 10^3/uL (4.0-10.0)
[2021-07-07 06:47] LABS: ALBUMIN 2.4 GM/DL (3.2-5.2); BILIRUBIN,TOTAL 0.2 MG/DL (0.2-1.0); CALCIUM LEVEL 9.1 MG/DL (8.8-10.2); CREATININE FOR GFR 1.58 MG/DL (0.70-1.30); GLOMERULAR FILTRATION RATE 45.9 (>42); MAGNESIUM LEVEL 1.8 MG/DL (1.8-2.4); TOTAL PROTEIN 6.5 GM/DL (6.4-8.2)
[2021-07-07] MEDS: ADVAIR HFA 115/21MCG INHALER INH SCH (08:11)
[2021-07-07 08:30] VITALS: BP 116/58
[2021-07-07 08:34] VITALS: BP 116/58
[2021-07-07] MEDS: METOPROLOL TART 50 MG TAB PO SCH (08:34)
[2021-07-07] MEDS: PANTOPRAZOLE 40MG TAB (PROTONIX) PO SCH (08:34)
[2021-07-07] MEDS: predniSONE 10 MG TAB PO SCH (08:34)
[2021-07-07] MEDS: APIXABAN 5 MG TAB (ELIQUIS) PO SCH (08:34)
[2021-07-07] MEDS: HumaLOG INSULIN (NovoLOG) PER UNIT SC SCH ×3 (08:35→17:42)
[2021-07-07] MEDS ORDERED: LEVEMIR (INSULIN DETEMIR) 1 UNITS/0.01ML SC SCH (09:00)
[2021-07-07] MEDS ORDERED: TORS20TA2 PO ×2 (11:26→17:15)
[2021-07-07] MEDS ORDERED: PANT40TA29 PO (11:31)
[2021-07-07] MEDS ORDERED: PRED10TA2 PO (11:31)
[2021-07-07 12:08] VITALS: BP 127/60
--- NOTE | 2021-07-07 15:33 | DS.PDOC ---
Discharge Summary General Date of Admission Jul 04, 2021 at 17:36 Date of Discharge 07/07/21 Discharge Summary PROCEDURES PERFORMED DURING STAY: [None]. ADMITTING DIAGNOSES: Acute hypercapnic respiratory failure Diastolic CHF, acute on chronic Diabetes mellitus Atrial fibrillation Sleep apnea Hyperkalemia Smoking abuse DISCHARGE DIAGNOSES: Acute hypercapnic respiratory failure Diastolic CHF, acute on chronic Diabetes mellitus Atrial fibrillation Sleep apnea Hyperkalemia Smoking abuse COMPLICATIONS/CHIEF COMPLAINT: Acute Hypercapnic Respiratory Failure. HISTORY OF PRESENT ILLNESS:This is a 75 y/o male with a pmh of chf, a-fib s/p pacemaker, htn, hld, copd on 2L o2 at home, ckd3 and iddm2 who presents to the ED with increased shortness of breath. Patient reported that for past few days he has been having increased shortness of breath associated with leg swelling. He denied any cough or sputum production. He denied any fever or chills. When I saw the patient he was on the BiPAP and somnolent, his history is limited due to clinical condition. In ER patient was found to have no leukocytosis, hemoglobin 12.3, potassium 6.4, creatinine 1.53, BNP 2529. ABG showed pH 7.2 PCO2 97.2, chest x-ray negative for acute infiltrate HOSPITAL COURSE: During the hospital stay the following issue addressed (1) Acute hypercapnic respiratory failure Multifactorial secondary to COPD exacerbation and acute diastolic CHF Patient received inhalers,prednisone taper, Lasix IV with positive effect (2) Diastolic CHF, acute on chronic Patient received Lasix IV with fluid restriction (3) Hyperlipidemia Patient received statin (4) Diabetes mellitus Detemir twice daily Diabetes diet Insulin sliding scale (5) Atrial fibrillation We continue oral targeted anticoagulation Heart rate under control (6) Sleep apnea CPAP overnight. Patient will be discharged to sleeping lab for re- titration (7) Hyperkalemia Resolved DISCHARGE MEDICATIONS: Please see below. ALLERGIES: Please see below. PHYSICAL EXAMINATION ON DISCHARGE: VITAL SIGNS: Please see below. GENERAL APPEARANCE: NAD HEENT: no scleral icterus, plus JVD, EOMI CARDIOVASCULAR: Irregularly irregular LUNGS: Diminished lung sounds bilaterally ABDOMEN: soft & not tender w palpation MUSCULOSKELETAL: no cyanosis, no swelling INTEGUMENT: no generalized pallor NEUROLOGICAL: cranial nerve function from 2-12 intact, follows commands, speech not dysarthric LABORATORY DATA: Please see below. IMAGING: See above PROGNOSIS: Fair ACTIVITY: [As tolerated]. DIET: Cardiac DISCHARGE PLAN: Home DISCHARGE INSTRUCTIONS: Stop smoking, follow cardiac diet ITEMS TO FOLLOWUP ON ON OUTPATIENT: Follow-up with PCP and tripoler DISCHARGE CONDITION: [Stable]. TIME SPENT ON DISCHARGE: 40 minutes. Vital Signs/I&Os Vital Signs Date Time Temp Pulse Resp B/P (MAP) Pulse Ox O2 Delivery O2 Flow Rate FiO2 07/07/21 12:20 72 89 Nasal Cannula 3.0 07/07/21 12:08 98.1 16 127/60 (82) 07/05/21 07:43 40 I&O- Last 24 Hours up to 6 AM 07/07/21 06:00 Intake Total 1160 ml Output Total 3670 ml Balance -2510 ml Laboratory Data Labs 24H Laboratory Tests 2 07/06/21 16:33: Bedside Glucose (Misc Panel) 339H 07/06/21 20:33: Bedside Glucose (Misc Panel) 433H 07/07/21 05:17: Immature Granulocyte % (Auto) 0.4, Neutrophils (%) (Auto) 66.4H, Lymphocytes (%) (Auto) 22.2L, Monocytes (%) (Auto) 9.6H, Eosinophils (%) (Auto) 1.0, Basophils (%) (Auto) 0.4, Neutrophils # (Auto) 5.3, Lymphocytes # (Auto) 1.8, Monocytes # (Auto) 0.8, Eosinophils # (Auto) 0.1, Basophils # (Auto) 0.0, Nucleated Red Blood Cells % (auto) 0.0, Anion Gap 3L, Glomerular Filtration Rate 45.9, Calcium Level 9.1, Magnesium Level 1.8, Total Bilirubin 0.2, Aspartate Amino Transf (AST/SGOT) 9, Alanine Aminotransferase (ALT/SGPT) 15, Alkaline Phosphatase 59, Total Protein 6.5, Albumin 2.4L, Albumin/Globulin Ratio 0.6 07/07/21 12:11: Bedside Glucose (Misc Panel) 204H CBC/BMP Laboratory Tests 07/07/21 05:17 FSBS Laboratory Tests Test 07/06/21 16:33 07/06/21 20:33 07/07/21 12:11 Range/Units Bedside Glucose (Misc Panel) 339 433 204 83-110 MG/DL Microbiology Microbiology 07/04/21 Respiratory Virus Panel (PCR) ([facility]) - Final, Complete 07/04/21 Blood Culture - Preliminary, Resulted No Growth after 72 hours. All specime... 07/04/21 Blood Culture - Preliminary, Resulted No Growth after 72 hours. All specime... Discharge Medications Scheduled Apixaban (Eliquis) 5 Mg Tablet, 5 MG PO BID, (Reported) Dulaglutide (Trulicity) 0.75 Mg/0.5 Ml Pen.injctr, 0.75 MG SC QWEEK, (Reported) FRIDAY Fluticasone/Umeclidin/Vilanter (Trelegy Ellipta 100-62.5-25) 1 Each Blst.w.dev, 1 PUFF INH DAILY, (Reported) Insulin Glargine,Hum.rec.anlog (Basaglar Kwikpen U-100) 100 Unit/1 Ml Insuln.pen, 33 UNIT SC QHS, (Reported) Latanoprost (Xalatan) 0.005% 2.5ML Drops, 1 DROP OU QHS, (Reported) Metformin HCl (Metformin HCl) 1,000 Mg Tablet, 1,000 MG PO BID, (Reported) Metoprolol Tartrate (Metoprolol Tartrate) 25 Mg Tablet, 50 MG PO QAM, (Reported) Metoprolol Tartrate (Metoprolol Tartrate) 25 Mg Tablet, 50 MG PO QHS, (Reported) Pantoprazole Sodium (Pantoprazole Sodium) 40 Mg Tablet.dr, 40 MG PO DAILY Prednisone (Prednisone) 10 Mg Tablet, 10 MG PO TAPER Take 4 tabs daily x 3 days, then 3 tabs daily x 3 days, then 2 tabs daily x 3 days, then 1 tab daily x 3 days and stop Simvastatin (Simvastatin) 40 Mg Tablet, 40 MG PO QHS, (Reported) Torsemide (Torsemide) 20 Mg Tablet, 1 TAB PO DAILY Scheduled PRN Ipratropium [place] (Ipratropium [place]) 15 Ml Crouse, 2 SPRAY NARES BID PRN for CONGESTION, (Reported) Ipratropium/Albuterol Sulfate (Iprat-Albut 0.5-3(2.5) mg/3 ml) 3 Ml Ampul.neb, 1 VIAL NEB Q4H PRN for SOB/WHEEZING, (Reported) Allergies Coded Allergies: bee venom protein (honey bee) (Verified Allergy, Unknown, 09/14/20) MEY MALDONADO DO Jul 07, 2021 15:33
[2021-07-07 16:43] VITALS: BP 138/61
[2021-07-07] MEDS ORDERED: LEVEMIR (INSULIN DETEMIR) 1 UNITS/0.01ML SC ONE (17:15)
--- NOTE | 2021-07-08 17:13 | ECHO ---
ECHOCARDIOGRAM DATE OF PROCEDURE: 07/05/2021 Age: 76 Gender: Male Height: 170 cm Weight: 87 kg REFERRING PHYSICIAN: Feliciano Warner M.D. PATIENT LOCATION: Room 3221. REASON FOR THE TESTING: Congestive heart failure. MEASUREMENTS: 2D Measurements: IVS 0.94 cm LV 5.1 cm LVPW 0.99 cm LA 3.7 cm Aorta 3.1 cm IVC 2.1 cm Doppler Measurements: Peak velocity across the aortic valve 1.7 m/sec Peak velocity across the LVOT 0.95 m/sec Peak gradient across the aortic valve 11 mmHg Mean gradient across aortic valve 7 mmHg Mitral E 1.1 Mitral A 0.75 with a ratio of 1.4 Maximum tricuspid valve velocity 3.1 m/sec 2D COMMENTS: 1. Normal left ventricular size, wall thickness and normal global left ventricular systolic function. The estimated left ventricular systolic ejection fraction is 60-65%. 2. Normal left atrium. Normal right atrium. The right ventricle appeared to be mildly enlarged, but was jagjit well. 3. The atrial septum appeared to be normal without evidence of defect or shunt. 4. Normal aortic root. 5. A small pericardial effusion was noted. No evidence of cardiac tamponade. 6. Minimally calcified aortic valve with normal leaflet excursion. Mildly calcified mitral annulus with normal anterior mitral valve leaflet motion. Normal tricuspid valve and pulmonic valve. The calculated pulmonary artery systolic pressure varies between 40-50 mmHg. Assessment of the left ventricular diastolic function appeared to be normal. IMPRESSION: 1. Normal global left ventricular systolic and diastolic function. 2. Aortic valve sclerosis with trivial aortic stenosis, but no aortic regurgitation. 3. Isolated mitral annular calcification. 4. Mild tricuspid regurgitation with moderate pulmonary hypertension. 5. A small pericardial effusion was noted. No evidence of cardiac tamponade. 6. 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
== END 2021-07-07 19:28 | disposition home health service (06) | DRG 291 ==
LOC: M ED 12:13 → M ED INP 17:36 → M PCU 07-05 01:03
PROVIDERS: ADMIT Internal Medicine; ATTEND Internal Medicine
PROC: 5A0935Z Assistance with Respiratory Ventilation, Less than 24 Consecutive Hours (ICD-10-PCS; principal; 2021-07-05)
DX: I13.0 Hypertensive heart and chronic kidney disease with heart failure and stage 1 through stage 4 chronic kidney disease, or unspecified chronic kidney disease (principal); I50.33 Acute on chronic diastolic (congestive) heart failure; J96.02 Acute respiratory failure with hypercapnia; J44.1 Chronic obstructive pulmonary disease with (acute) exacerbation; I48.20 Chronic atrial fibrillation, unspecified; E78.5 Hyperlipidemia, unspecified; Z99.81 Dependence on supplemental oxygen; N18.30 Chronic kidney disease, stage 3 unspecified; E11.22 Type 2 diabetes mellitus with diabetic chronic kidney disease; F17.210 Nicotine dependence, cigarettes, uncomplicated; Z79.01 Long term (current) use of anticoagulants; Z79.84 Long term (current) use of oral hypoglycemic drugs; Z79.899 Other long term (current) drug therapy; Z95.0 Presence of cardiac pacemaker; Z20.822 Contact with and (suspected) exposure to COVID-19; Z91.030 Bee allergy status; G47.33 Obstructive sleep apnea (adult) (pediatric); E87.5 Hyperkalemia

== ENCOUNTER → 2021-07-07 | Outpatient (CLI) | payer MEDICARE ==
[~2021-07-07] MED LIST changes: +METO25TA4 PO; +PANT40TA29 PO; +TORS20TA2 PO
--- NOTE | 2021-07-10 12:05 | SLEEPCENT ---
DATE: 07/07/2021 CPAP RE-TITRATION ORDERED BY: PHU Abbasi Nocturnal polysomnography was performed for re-titration of pressure therapy in this patient with a complex medical illness and obstructive sleep apnea syndrome. For testing, a ResMed F20 full face mask of medium size was used. Seven hours and eight minutes of data were reviewed. There were 186 minutes of sleep identified. Sleep latency was short at 16.5 minutes. REM latency was short at 85.5 minutes. Sleep architecture initially showed reasonable progression. The patient woke shortly after 2:15 and was unable to reestablish sleep resulting in a reduced sleep efficiency of 44.5%. The electrocardiogram showed what appeared to be a supraventricular rhythm possibly atrial fibrillation with an average heart rate of 70 beats per minute. EEG showed normal waveforms for wake and sleep. Persistent respiratory events prompted increases in CPAP pressure and despite optimal mask fit and minimal air leak, the patient required a change to a bilevel device. Best sleep was seen on an inspiratory pressure of 13 over expiratory pressure of 9. Supplemental oxygen was necessary to address hypoventilatory desaturation pattern. Saturations remained low despite supplemental oxygen. However, flow rate of 6 liters was tolerated for a reasonable period of time. IMPRESSIONS: 1. Obstructive sleep apnea syndrome (G47.33). 2. Nocturnal hypoxemia. RECOMMENDATION: Initiation of bilevel pressure therapy, inspiratory 13 over expiratory of 9 with a flow rate of supplemental oxygen through the system of 6 liters. Close clinical followup will be necessary given the complex nature of the patient's illness and further increases in supplemental oxygen may be necessary if tolerated based on his hypercarbia. cc: DO Marlys SAAVEDRA MD MTDD
== END ==
LOC: M SLEEP 20:00
PROVIDERS: ATTEND Physician Assistant
DX: G47.33 Obstructive sleep apnea (adult) (pediatric) (principal)